=== PATIENT | male | born 1940 | race Caucasian/White ===

== ENCOUNTER → 2016-12-12 | Outpatient (CLI) | payer BC ==
[~2016-12-12] MED LIST: ASPI81TA21 PO; ATOR-22 PO; CARV25TA PO; CELE100C PO; CHOL100010 PO; CLR10 PO; GUAI1TAB69 PO; LSN40 PO; MISCCAP8; MULTCHW PO; NTRGSL/4 UT; SALI1SPR15 NAE; TRAM37.52 PO; [UNRECOGNIZED DRUG - OTHER] OPB
[2016-12-12 10:01] LABS: ALT/SGPT 43 U/L (12-78); BLOOD UREA NITROGEN 18 mg/dl (7-18); BUN/CREATININE RATIO 14.8 (10-20); CALCIUM 8.4 mg/dl (8.5-10.1); CARBON DIOXIDE 28 mmol/L (21-32); CHLORIDE 107 mmol/L (98-107); CHOLESTEROL 89 mg/dl (0-200); GLUCOSE 123 mg/dl (70-99); POTASSIUM 4.1 mmol/L (3.5-5.1); SODIUM 142 mmol/L (136-145)
[2016-12-12 10:04] LABS: ALB/GLOB RATIO 1.3 (0.9-2); ALKALINE PHOSPHATASE 80 U/L (45-117); AST/SGOT 28 U/L (15-37); CHOLESTEROL/HDL RATIO 2.3; HDL CHOLESTEROL 38 mg/dl; LDL CHOLESTEROL CALCULATED 35 mg/dl; TRIGLYCERIDES 82 mg/dl (0-150); VERY LOW DENSITY LIPOPROT CALC 16 mg/dl
[2016-12-12 10:08] LABS: ESTIMATED AVERAGE GLUCOSE 126 mg/dl; HA1C FLAG Normal (Normal)
== END | disposition home or self-care (01) ==
LOC: C.LAB1850 07:22
PROVIDERS: ATTEND Internal Medicine
DX: R73.09 Other abnormal glucose (principal); I10 Essential (primary) hypertension

== ENCOUNTER → 2017-02-25 | Outpatient (CLI) | payer BC ==
--- NOTE | 2017-02-25 08:20 | DIAGNOSTIC IMAGING REPORT ---
CT SCAN OF THE PARANASAL SINUSES CLINICAL HISTORY: Chronic sinusitis. COMPARISON STUDY: CT of the brain dated 06/28/2015. TECHNIQUE: High-resolution CT scan of the paranasal sinuses is performed. Images are reviewed in the axial, sagittal, and coronal planes. IV contrast was not administered for this examination. CT DOSE: 273.21 mGycm FINDINGS: Maxillary antra: Clear bilaterally. Anterior ethmoid sinuses: Clear. Posterior ethmoid sinuses: Clear. Sphenoid sinuses: Trace mucosal thickening seen bilaterally. A 9 mm retention cyst is seen on the right. Frontal sinuses: Clear. Ostiomeatal complexes: Patent bilaterally. Frontoethmoidal and sphenoethmoidal recesses: The sphenoethmoidal recesses are patent bilaterally. There is narrowing on the right secondary to mucosal thickening. The frontoethmoidal recesses are clear. Carotid arteries: The carotid arteries are covered and there are bilateral septal attachments. Ethmoid roofs: The ethmoid roofs are symmetric. Nasal turbinates: Normal in appearance. Nasal septum: There is leftward deviation of the bony nasal septum with a rightward projecting spur. Optic nerves: Covered. Orbits: The bony orbits are intact. Orbital contents are normal in appearance. Calvarium: The skeletal structures are osteopenic. The imaged calvarium is normal in appearance Mastoid air cells: Well pneumatized. Brain parenchyma: Partially visualized brain parenchyma is within normal limits noting age-related involutional change. IMPRESSION: Minimal paranasal sinus disease. See above. Electronically signed by: Owen Lockwood M.D. 02/25/2017 8:19 AM Dictated Date/Time: 02/25/2017 8:16 AM
--- NOTE | 2017-02-25 08:31 | DIAGNOSTIC IMAGING REPORT ---
TWO VIEW CHEST CLINICAL HISTORY: Cough. FINDINGS: PA and lateral chest radiographs are compared to study dated 06/28/2015. There is evidence of previous mitral valve surgery. Epicardial pacing leads are suspected. The heart is mildly enlarged and there is atherosclerotic calcification of the thoracic aorta. The pulmonary vasculature is noncongested. Chronic interstitial thickening is similar to previous. There is patchy airspace consolidation at the right lung base. The right upper lung and the left lung appear clear. No pleural effusion or pneumothorax is seen. The skeletal structures are osteopenic. Degenerative change is noted throughout the thoracic spine. IMPRESSION: 1. There is patchy airspace consolidation at the right lung base typical in appearance for pneumonia. Radiographic follow-up to resolution is recommended. 2. Cardiac enlargement. There is no radiographic evidence of congestive failure. Electronically signed by: Owen Lockwood M.D. 02/25/2017 8:30 AM Dictated Date/Time: 02/25/2017 8:27 AM
== END | disposition home or self-care (01) ==
LOC: C.CTS 07:52
PROVIDERS: ATTEND Otolaryngology
DX: J32.9 Chronic sinusitis, unspecified (principal); R91.8 Other nonspecific abnormal finding of lung field; I51.7 Cardiomegaly

== ENCOUNTER → 2017-03-17 | Outpatient (CLI) | payer BC ==
[~2017-03-17] MED LIST changes: -CHOL100010 PO; +EpINEphrine INJ 1MG/ML AMP 1 MG/ML AMP ONE; +GELATIN SPONGE 12-7MM ONE; +LIDO 2%/EPINEPHRINE 1:100000 20 ML VIAL INFIL ONE; +LIDOCAINE 4% INH SOLN 4 ML BTL ONE; +MUPIROCIN 2% OINT 22 GM TUBE ONE
--- NOTE | 2017-03-17 14:45 | DIAGNOSTIC IMAGING REPORT ---
CHEST 2 VIEWS ROUTINE CLINICAL HISTORY: COMMUNITY ACQUIRED PNEUMONIA COMPARISON STUDY: 03/06/2017 FINDINGS: The heart remains enlarged. A prosthetic cardiac valve is again evident. There is no failure. There are no pleural effusions. There are persistent but improving right middle lobe airspace opacities. Continued radiographic follow-up is recommended. The left lung is clear. The previously queried right midlung zone opacity is not visualized on today's study.[ IMPRESSION: Persistent but improving right middle lobe airspace opacities. Continued radiographic follow-up is recommended. Electronically signed by: Gerardo Muller M.D. 03/17/2017 2:44 PM Dictated Date/Time: 03/17/2017 2:42 PM
== END | disposition home or self-care (01) ==
LOC: C.RAD1850 14:25
PROVIDERS: ATTEND Internal Medicine
DX: J18.9 Pneumonia, unspecified organism (principal); R91.8 Other nonspecific abnormal finding of lung field

== ENCOUNTER → 2017-03-20 | Day surgery (SDC) | payer BC ==
[2017-03-06 10:48] VITALS: BMI 28.0
--- NOTE | 2017-03-06 11:25 | PAT Medication Instructions ---
Service Date Mar 06, 2017. Current Home Medication List Aspirin Enteric Coated (Ecotrin Or Generic), 81 MG PO QPM Atorvastatin (Lipitor), 20 MG PO HS Carvedilol (Coreg), 1 TAB PO BID Celecoxib (Celebrex), 200 MG PO QAM Lisinopril (Lisinopril), 40 MG PO QAM Loratadine (Claritin), 10 MG PO QPM Multiple Vitamins W/ Minerals (Centrum Silver), 1 TAB PO QAM Nitroglycerin (Nitrostat), 0.4 MG UT PRN Saline (Saline Nasal [place] Infant), 1 SPRY REJI HS [Refresh Eyes], 1 DROP OPB BID Medication Instructions For Your Scheduled Surgery - Continue as directed: Nitroglycerin (Nitrostat), 0.4 MG UT PRN - Hold the following medications the morning of surgery: Lisinopril (Lisinopril), 40 MG PO QAM Loratadine (Claritin), 10 MG PO QPM Multiple Vitamins W/ Minerals (Centrum Silver), 1 TAB PO QAM Celecoxib (Celebrex), 200 MG PO QAM (otherwise okay to continue per surgeon) - Take the following medications the morning of surgery with a sip of water OTHERWISE NOTHING TO EAT OR DRINK AFTER MIDNIGHT: [Refresh Eyes], 1 DROP OPB BID Carvedilol (Coreg), 1 TAB PO BID - Take the following medications as scheduled the night before surgery: [Refresh Eyes], 1 DROP OPB BID Atorvastatin (Lipitor), 20 MG PO HS Saline (Saline Nasal [place] ), 1 SPRY REJI HS Carvedilol (Coreg), 1 TAB PO BID Aspirin Enteric Coated (Ecotrin Or Generic), 81 MG PO QPM (otherwise okay to continue per surgeon) If you have any questions please call us at [phone] or [phone] or [phone]
--- NOTE | 2017-03-06 11:57 | DIAGNOSTIC IMAGING REPORT ---
CHEST PREADMISSION(PA/LAT) CLINICAL HISTORY: Cough. Shortness of breath. History of pneumonia. COMPARISON STUDY: Chest radiograph February 25, 2017. FINDINGS: A prosthetic cardiac valve is noted. Mild cardiomegaly is noted. There is no evidence of pulmonary edema. No pneumothorax or pleural effusion is identified. Right middle lobe airspace opacity persists. This has slightly improved since exam of February 25, 2017. There is also mild right midlung opacity which measures approximately 2.2 cm. Left lung is clear. IMPRESSION: 1. Persistent, but slightly improved, right middle lobe opacity which favors pneumonia. Post treatment radiographs to ensure resolution are recommended. 2. Minimal right midlung opacity which may also reflect an infectious process but should be followed to resolution. 3. Mild cardiomegaly without evidence of pulmonary edema. Electronically signed by: Jass Hernandez M.D. 03/06/2017 11:56 AM Dictated Date/Time: 03/06/2017 11:53 AM
[2017-03-06 12:21] LABS: BASO % 0.4 %; BASO ABS # 0.02 K/uL (0-0.2); COMPLETE YES; EOS % 2.9 %; HEMATOCRIT 43.7 % (42-52); LYMPH % 22.6 %; LYMPH ABS # 1.16 K/uL (1.2-3.4); MEAN CELL VOLUME 95.6 fL (80-100); MEAN CORPUSCULAR HGB CONC 34.6 g/dl (32-36); MEAN PLATELET VOLUME 11.8 fL (7.4-10.4); MONO % 12.5 %; NEUT % 61.6 %; PLATELET COUNT 141 K/uL (130-400); RED BLOOD COUNT 4.57 M/uL (4.7-6.1); WHITE BLOOD COUNT 5.13 K/uL (4.8-10.8)
[2017-03-06 13:14] LABS: BUN/CREATININE RATIO 17.6 (10-20); CALCIUM 8.7 mg/dl (8.5-10.1); CREATININE 1.1 mg/dl (0.60-1.40); POTASSIUM 4.1 mmol/L (3.5-5.1)
--- NOTE | 2017-03-19 16:01 | History and Physical ---
History & Physical Date Mar 19, 2017. Chief Complaint sinus infections History of Present Illness The patient is a 76 year old male with complaints of chronic sinusitis Past Medical/Surgical History Medical Problems: (1) Hypertension Surgical Problems: (1) H/O mitral valve repair Additional History Hepatic Disease: No Endocrine Disorder: No Kidney Disease: No Hypertension: Yes Heart Disease: Yes Bleeding Tendencies: No Infectious Diseases: Yes Allergies Coded Allergies: Morphine (Verified Allergy, Unknown, ITCHING, 03/06/17) Home Medications Scheduled Aspirin Enteric Coated (Ecotrin Or Generic), 81 MG PO QPM Atorvastatin (Lipitor), 20 MG PO HS Carvedilol (Coreg), 1 TAB PO BID Celecoxib (Celebrex), 200 MG PO QAM Lisinopril (Lisinopril), 40 MG PO QAM Loratadine (Claritin), 10 MG PO QPM Multiple Vitamins W/ Minerals (Centrum Silver), 1 TAB PO QAM Nitroglycerin (Nitrostat), 0.4 MG UT PRN Saline (Saline Nasal [place] Infant), 1 SPRY REJI HS [Refresh Eyes], 1 DROP OPB BID Physical Examination Skin: warm/dry, no rash Eyes: normal inspection, EOMI, sclerae normal ENT: normal ENT inspection, pharynx normal Head: normocephalic, atraumatic Neck: supple, no adenopathy, trachea midline Respiratory/Chest: lungs clear, normal breath sounds, no respiratory distress Cardiovascular: regular rate, rhythm, no edema, no murmur Abdomen / GI: normal bowel sounds, non tender Back: normal inspection Extremities: normal inspection, normal range of motion Neurologic/Psych: no motor/sensory deficits, alert, normal reflexes, oriented x 3 Diagnosis septal deviation, chronic sinusitis Plan of Treatment septoplasty, endoscopic sinus surgery, explained risks, treated for pneumonia, feels better, no cough
[~2017-03-20] VITALS: Ht 177.8 cm; Wt 88.0 kg
[~2017-03-20] MED LIST changes: +ATROPINE SULFATE 0.1 MG/ML 5ML SYR IV PRN; +DEXAMETHASONE SOD INJ 4 MG/ML VIAL ONE; +EpHEDrine SULFATE INJ 50 MG/ML AMP IV PRN; +EpHEDrine SULFATE INJ 50 MG/ML AMP ONE; +FENTANYL CITRATE INJ 50 MCG/1 ML 2 ML VIAL IV PRN; +FENTANYL CITRATE INJ 50 MCG/1 ML 2 ML VIAL ONE; +HYDROCODONE/ACETAMOPHEN 5/325MG TAB PO PRN; +HYDROmorphone INJ 1 MG/ML SYR IV PRN; +LACTATED RINGER'S 1000ML 1,000 ML IV SCH; +LIDOCAINE HCL 2% 2 ML VIAL (20MG/ML) ONE; -MISCCAP8; +ONDANSETRON INJ 2 MG/ML 2 ML VIAL IV PRN; +PHENYLEPHRINE 100MCG/ML 5ML SYR ONE; +PROPOFOL IV EMULSION 10 MG/ML 20 ML VIAL IV ONE; +SODIUM CHLORIDE 0.9% 1000ML 1,000 ML IV SCH; +SUCCINYLCHOLINE CHLORIDE 20 MG/ML 10 ML VIAL IV ONE; +VASOPRESSIN 20 UNIT/ML VIAL ONE
[2017-03-20 05:53] VITALS: BP 172/73; PULSE 52; TEMP 37; O2SAT 93; Ht 177.8 cm; Wt 88.0 kg
--- NOTE | 2017-03-20 07:03 | History & Physical Bridge Note ---
H&P Re-Evaluation Bridge Note: I have examined the patient, reviewed the History & Physical and in the interval since the performance of the History & Physical I have noted the following changes of clinical significance: No changes noted
--- NOTE | 2017-03-20 09:21 | Discharge Instructions ---
Discharge Instructions Date of Service Mar 20, 2017. Admission Reason for Admission: Chronic Sinusitis Discharge Discharge Diagnosis / Problem: same Discharge Goals Goal(s): Improve disease control Activity Recommendations Activity Limitations: per Instructions/Follow-up section . Instructions / Follow-Up Instructions / Follow-Up ACTIVITY RECOMMENDATIONS: * Being up and around is good, but no strenuous activity, heavy lifting or physical exertion for one week. * Keep your head elevated 30 degrees when lying down or sleeping. * Do not blow your nose for 48 hours, sniff back instead. * Avoid hot showers. OVER THE COUNTER MEDICATIONS: * You may use Tylenol * Avoid aspirin or aspirin containing products, e.g. as they may increase bleeding. SPECIAL CARE INSTRUCTIONS: * Expect to have bloody drainage from your nose and/or down your throat for one to three days. Change drip pad as needed. * Begin irrigating your nose with saline solution today, at least six to ten times per day and sniff back to help remove old clots or crust. * You may experience nasal and facial congestion, pain and pressure, this is normal. * Please call with any significant and/or progressive pain, redness, swelling around the eyes, visual changes, fever of 101.5 degrees F, active bleeding or any problems or concerns. * If active bleeding occurs, spray the nose three times at one minute intervals with Afrin spray and call or cell phone: . If unable to reach the doctor, go to the nearest Emergency Department. Special Diet: * Avoid extremely hot fluids. FOLLOW UP VISIT: Follow-up Visit with Dr. Potter If not already scheduled, please call to schedule. Current Hospital Diet Patient's current hospital diet: Discharge Diet Recommended Diet: Regular Diet Procedures Procedures Performed: Septoplasty and Endoscopic Sinus Surgery of Bilateral Ethmoidectomy Right and Left Frontal, Total Maxillary and Sphenoid Sinusotomies with Computer Guidance Pending Studies Studies pending at discharge: no Medical Emergencies . Who to Call and When: Medical Emergencies: If at any time you feel your situation is an emergency, please call 911 immediately. . Non-Emergent Contact Non-Emergency issues call your: Primary Care Provider . "Provider Documentation" section prepared by Shari Potter. . VTE Core Measure Inpt VTE Proph given/why not?: SCD's [place] Drug Monitoring Program Search Results: no issues identified
--- NOTE | 2017-03-20 09:47 | [facility] Operative Report ---
Operative Report Operative Date Mar 20, 2017. Pre-Operative Diagnosis Septal Deviation and Chronic sinusitis Post-Operative Diagnosis Septal Deviation and Chronic sinusitis Procedure(s) Performed Septoplasty and Endoscopic Sinus Surgery of Bilateral Ethmoidectomy Right and Left Frontal, Total Maxillary and Sphenoid Sinusotomies with Computer Guidance Surgeon Dr Shari Potter Rubber Cutter And Shape Carver Surgeon(s) None Estimated Blood Loss 40mL Findings Septal deviation to the right and thickened mucosa Specimens A. Septal Bone and Cartilage Anesthesia Gen. endotracheal Complication(s) None Disposition Recovery Room / PACU Indications 76-year-old gentleman with persistent sinusitis all winter ending in the pneumonia requiring multiple antibiotics. He has septal deviation to the right and significant sinus disease on CT scan Description of Procedure This 76-year-old gentleman was brought to the operating room and placed in the supine position. General anesthesia was induced, and initially with LMA, and then converted to general endotracheal due to a leak. The LCO Creation device and was calibrated and used for the entire procedure. He was prepped with Betadine paint and draped in the usual sterile manner. The nose was decongested using cottonoids with the topical solution of 4 mL of 4% Xylocaine mixed with 1 mL of epinephrine. Injection of 2% Xylocaine with 1 100,000 strength epinephrine was also used. The right sphenoid was cannulated with the guidewire with [employer] computer guidance and dilated using the 6 mm balloon as was the left sphenoid sinus. The right maxillary sinus was cannulated with the guidewire and dilated using the 6 mm balloon as was the left maxillary sinus. The left nasal frontal duct was cannulated with the guidewire, however the guidewire would not go in initially therefore the frontal sinusotomy was performed using the shaver couple with the Brain[employer] device removing the anterior wall than the posterior wall of the Agger nasi cell and the supra- ethmoid air cells following the previously painted area to the nasal frontal duct opening up the nasal frontal duct cannulating this with the guidewire and then dilating the nasal frontal duct with the 6 mm balloon. The bony fragments around the nasal frontal duct were cleaned, however the mucosa inside the nasal frontal duct was maintained. At this point total ethmoidectomy was performed using the shaver couple with Brain[employer] device opening up the bullae ethmoidalis going through the ground lamella into the posterior ethmoid air cells identifying the skull base superiorly and lamina papyracea laterally following the structures anteriorly exonerating all the posterior and then all the anterior ethmoid air cells up to the previously dilated nasal frontal duct. Maxillary sinus was opened by removing polypoid mucosa at the posterior border which is the anterior wall of the bullae ethmoidalis. The sphenoid was opened by removing polypoid mucosa at the inferior border of the superior turbinate. The right frontal sinusotomy total ethmoidectomy sphenoidotomy and maxillary sinus antrostomy was performed in a similar manner. The right nasal frontal duct cannulated easily and was dilated with the 6 mm balloon. The maxillary and sphenoid sinuses were opened in a similar manner. Endoscopic septoplasty was performed removing a large bony cartilaginous spur projecting to the right inferiorly. The incision was a right [place] incision superior and inferior tunnels were elevated. Bilateral posterior tunnels were elevated. The bony and cartilaginous spur was removed using the Ted dissector Francis forceps and Blakesley forceps. This returned the septum to the midline. The propel stents were placed in the middle meatus area. A single piece of Gelfoam was placed on the right side of the septum. The patient tolerated procedure well was taken to recovery area in satisfactory condition. I attest to the content of the Intraoperative Record and any orders documented therein. Any exceptions are noted below.
--- NOTE | 2017-03-20 10:05 | Anesthesiology Progress Note ---
Anesthesia Post Op Note Date & Time Mar 20, 2017 at 10:03 Vital Signs Pain Intensity: 0 Vital Signs Past 12 Hours Date Time Temp Pulse Resp B/P (MAP) Pulse Ox O2 Delivery O2 Flow Rate FiO2 03/20/17 09:55 59 16 162/85 93 Nasal Cannula 2 03/20/17 09:45 62 16 156/83 99 Oxymask 10 03/20/17 09:35 58 16 161/85 99 Oxymask 10 03/20/17 09:28 36 58 16 167/82 99 Oxymask 10 03/20/17 05:53 37 52 20 172/73 (106) 93 Room Air Notes Mental Status: alert / awake / arousable, participated in evaluation Pt Amnestic to Procedure: Yes Nausea / Vomiting: adequately controlled Pain: adequately controlled Airway Patency, RR, SpO2: stable & adequate BP & HR: stable & adequate Hydration State: stable & adequate Anesthetic Complications: no major complications apparent Pt still requiring O2 to maintain his O2 sat >91%. Will monitor his saturation to get to baseline before discharge.
[2017-03-20 10:25] VITALS: BP 172/83; PULSE 60; TEMP 35.7; O2SAT 92
[2017-03-20 10:55] VITALS: BP 156/85; PULSE 61; TEMP 35.8; O2SAT 93
[2017-03-20 11:23] VITALS: BP 173/82; PULSE 67; TEMP 36; O2SAT 91
[2017-03-20 11:55] VITALS: BP 175/87; PULSE 63; TEMP 36; O2SAT 92
== END | disposition home or self-care (01) ==
LOC: C.ACU 05:10
PROVIDERS: ATTEND Otolaryngology
DX: J34.2 Deviated nasal septum (principal); J32.9 Chronic sinusitis, unspecified; I10 Essential (primary) hypertension; Z79.899 Other long term (current) drug therapy; Z79.82 Long term (current) use of aspirin

== ENCOUNTER → 2017-04-08 | Outpatient (CLI) | payer BC ==
[~2017-04-08] MED LIST changes: -ATROPINE SULFATE 0.1 MG/ML 5ML SYR IV PRN; -DEXAMETHASONE SOD INJ 4 MG/ML VIAL ONE; -EpHEDrine SULFATE INJ 50 MG/ML AMP IV PRN; -EpHEDrine SULFATE INJ 50 MG/ML AMP ONE; -EpINEphrine INJ 1MG/ML AMP 1 MG/ML AMP ONE; -FENTANYL CITRATE INJ 50 MCG/1 ML 2 ML VIAL IV PRN; -FENTANYL CITRATE INJ 50 MCG/1 ML 2 ML VIAL ONE; -GELATIN SPONGE 12-7MM ONE; -HYDROCODONE/ACETAMOPHEN 5/325MG TAB PO PRN; -HYDROmorphone INJ 1 MG/ML SYR IV PRN; -LACTATED RINGER'S 1000ML 1,000 ML IV SCH; -LIDO 2%/EPINEPHRINE 1:100000 20 ML VIAL INFIL ONE; -LIDOCAINE 4% INH SOLN 4 ML BTL ONE; -LIDOCAINE HCL 2% 2 ML VIAL (20MG/ML) ONE; +MISCCAP8; -MUPIROCIN 2% OINT 22 GM TUBE ONE; -ONDANSETRON INJ 2 MG/ML 2 ML VIAL IV PRN; -PHENYLEPHRINE 100MCG/ML 5ML SYR ONE; -PROPOFOL IV EMULSION 10 MG/ML 20 ML VIAL IV ONE; -SODIUM CHLORIDE 0.9% 1000ML 1,000 ML IV SCH; -SUCCINYLCHOLINE CHLORIDE 20 MG/ML 10 ML VIAL IV ONE; -VASOPRESSIN 20 UNIT/ML VIAL ONE
--- NOTE | 2017-04-08 08:54 | DIAGNOSTIC IMAGING REPORT ---
CHEST 2 VIEWS ROUTINE CLINICAL HISTORY: J18.9 Community acquired [id number] COMPARISON STUDY: 03/17/2017 FINDINGS: The cardiac and mediastinal contours remain stable. A prosthetic cardiac valve is again evident. There is no failure. There are persistent airspace opacities at the right lung base. These are difficult to visualize in the lateral view, but are likely within the middle lobe. There is no significant pleural fluid. Degenerative changes are present within the dorsal spine. IMPRESSION: No change from the prior study. Persistent minimal right basilar airspace opacities Electronically signed by: Gerardo Muller M.D. 04/08/2017 8:53 AM Dictated Date/Time: 04/08/2017 8:52 AM
== END | disposition home or self-care (01) ==
LOC: C.LAB1850 08:41
PROVIDERS: ATTEND Internal Medicine
DX: J18.9 Pneumonia, unspecified organism (principal)

== ENCOUNTER → 2017-04-23 | Outpatient (CLI) | payer BC ==
--- NOTE | 2017-04-23 10:39 | DIAGNOSTIC IMAGING REPORT ---
(CHEST) THORAX WITHOUT CT DOSE: 384.00 mGy.cm HISTORY: Abnormal chest x-ray. J18.9 Community acquired [id number] Opacity of lung on imagi TECHNIQUE: Multiaxial CT images of the chest were performed without contrast. A dose lowering technique was utilized adhering to the principles of ALARA. COMPARISON: Chest 04/08/2017. FINDINGS: The central airways are patent. Trace right pleural effusion. No pneumothorax. Small biapical pleural-parenchymal scarlike densities. There are few punctate pleural calcification within the left lung apex. Scattered patchy groundglass densities within the base of the right middle lobe and right lower lobe with mild interlobular septal thickening. There is also mild left upper lobe groundglass airspace opacities anteriorly. A few scattered calcified granulomas within the lungs. No fractures within the visualized osseous structures. A punctate stone within the right kidney. The spleen and adrenal glands are unremarkable. The visualized liver appears within normal limits. A few calcified mediastinal lymph nodes. Prominent right hilar lymph node measuring 1 cm short axis diameter. A mitral valve ring is noted. Normal caliber thoracic aorta. A single enlarged left peritracheal lymph node measuring 2.3 x 1.5 cm. IMPRESSION: 1. Patchy groundglass airspace opacity seen within the base of the right middle lobe and right lower lobe with interlobular septal thickening. There is also faint groundglass airspace opacities within the left upper lobe anteriorly. This likely represents a atypical pneumonia. Pulmonary edema could also a similar appearance but is considered less likely. 2. Trace right pleural effusion. 3. Mild cardiomegaly. 4. A single enlarged left paratracheal lymph node and a single prominent right hilar lymph node. These could be reactive. 3-[address] follow-up can be performed to ensure stability/resolution. 5. Right-sided nephrolithiasis. Electronically signed by: Travis Hart M.D. 04/23/2017 10:37 AM Dictated Date/Time: 04/23/2017 10:29 AM
== END | disposition home or self-care (01) ==
LOC: C.CTS 10:17
PROVIDERS: ATTEND Internal Medicine
DX: J18.9 Pneumonia, unspecified organism (principal); R91.8 Other nonspecific abnormal finding of lung field; B99.9 Unspecified infectious disease; R59.0 Localized enlarged lymph nodes; N20.0 Calculus of kidney

== ENCOUNTER → 2017-04-30 | Outpatient (CLI) | payer BC ==
[2017-04-30 16:56] LABS: BASO % 0.3 %; BASO ABS # 0.02 K/uL (0-0.2); COMPLETE YES; EOS % 2.1 %; HEMATOCRIT 43.1 % (42-52); IG% 0.2 %; LYMPH % 20.6 %; LYMPH ABS # 1.29 K/uL (1.2-3.4); MEAN CELL VOLUME 95.8 fL (80-100); MEAN CORPUSCULAR HEMOGLOBIN 32.7 pg (25-34); MEAN CORPUSCULAR HGB CONC 34.1 g/dl (32-36); MEAN PLATELET VOLUME 11.5 fL (7.4-10.4); MONO % 11.5 %; NEUT % 65.3 %; PLATELET COUNT 164 K/uL (130-400); WHITE BLOOD COUNT 6.27 K/uL (4.8-10.8)
[2017-04-30 17:02] LABS: PROTHROMBIN TIME (PATIENT) 11.2 SECONDS (9.0-12.0)
[2017-04-30 17:18] LABS: ALT/SGPT 74 U/L (12-78); AST/SGOT 39 U/L (15-37); BLOOD UREA NITROGEN 20 mg/dl (7-18); BUN/CREATININE RATIO 18.2 (10-20); CALCIUM 8.6 mg/dl (8.5-10.1); CARBON DIOXIDE 27 mmol/L (21-32); CHLORIDE 112 mmol/L (98-107); GLUCOSE 92 mg/dl (70-99); POTASSIUM 4.1 mmol/L (3.5-5.1); SODIUM 144 mmol/L (136-145)
[2017-04-30 17:28] LABS: ALKALINE PHOSPHATASE 92 U/L (45-117)
[2017-05-01 06:48] LABS: ESTIMATED AVERAGE GLUCOSE 131 mg/dl; HA1C FLAG Normal (Normal)
--- NOTE | 2017-05-06 12:28 | CODING QUERY MEDICAL NECESSITY ---
SUPPORTING DIAGNOSIS NEEDED A supporting diagnosis is required for the test/procedure performed on this patient in order for us to be reimbursed by the patient's insurance. Please provide a supporting diagnosis for the following test/procedure listed below next to the test name along with your signature. *If there is no additional diagnosis for this patient that would support the following test/procedure please document that below next to the test/procedure. Test(s)/Procedure(s) that require a supporting diagnosis: * VITAMIN B12 DIAGNOSIS: Provider Signature: Date: Thank you Aziza Rudyard [employer] Once completed, please kindly fax back to [phone] For questions please call [phone]
[2017-05-07 12:34] LABS: MYELOPEROXIDASE AB <1.0 AI (<1.0)
== END | disposition home or self-care (01) ==
LOC: C.LAB1850 15:53
PROVIDERS: ATTEND Internal Medicine Pulmonary Disease
DX: R41.89 Other symptoms and signs involving cognitive functions and awareness (principal); I48.91 Unspecified atrial fibrillation; R73.09 Other abnormal glucose; J18.9 Pneumonia, unspecified organism; R91.8 Other nonspecific abnormal finding of lung field; B99.9 Unspecified infectious disease; R05 Cough; I10 Essential (primary) hypertension; R00.1 Bradycardia, unspecified

== ENCOUNTER → 2017-05-08 | Day surgery (SDC) | payer BC ==
[2017-05-08] VITALS (14 sets, daily range): BP systolic 127–190; BP diastolic 50–118; PULSE 46–60; TEMP 36.5–36.6; O2SAT 5–100; Ht 177.8 cm; Wt 87.5 kg
[~2017-05-08] VITALS: Ht 177.8 cm; Wt 87.5 kg
[~2017-05-08] MED LIST changes: +FENTANYL CITRATE 100 MCG 2 ML CARP IV ONE; +FENTANYL CITRATE INJ 50 MCG/1 ML 2 ML VIAL IV ONE; +IPRATROPIUM BROMIDE NEB SOLN 0.02% 2.5 ML VIAL INH ONE; +LEVALBUTEROL 1.25MG/3ML NEB INH ONE; +MIDAZOLAM HCL 5 MG/ML 1 ML VIAL IV ONE; +NURSING VERBAL MED ORDER ONE
--- NOTE | 2017-05-08 07:41 | Procedure Note ---
Pre-Mod Sedation Assessment General Date of Moderate Sedation: May 08, 2017. Pre-Sedation Airway Assessment Smoking Status: Former Smoker Mallampati Classification: Class II ASA Classification: Class II Procedure Planning Contraindications-for Mod Sed: None Yes Notes The planned sedation has been discussed with the patient and consent obtained. I have identified the patient, determined the appropriateness of sedation and have assessed the patient immediately prior to the procedure. All medicine(s) and interventions are by my order.
--- NOTE | 2017-05-08 11:02 | Discharge Instructions ---
Discharge Instructions Date of Service May 08, 2017. Admission Reason for Admission: Persistent Cough Discharge Discharge Diagnosis / Problem: Hemoptysis/pneumonitis Discharge Goals Goal(s): Diagnostic testing, Therapeutic intervention Activity Recommendations Activity Limitations: resume your previous activity Lifting Limitations: none Exercise/Sports Limitations: none May Resume Sexual Activity: when tolerated Shower/Bathe: no limitations Driving or Machine Use: resume 1 day after discharge None . Instructions / Follow-Up Instructions / Follow-Up Reported Home Medications Medications Dose Route/Sig Max Daily Dose Days Date Category [facility]) 1 Cap Cap 05/08/17 Reported Saline Nasal [place] Infant (Saline) 0.65 % Spr 1 [place] REJI HS 7 03/06/17 Reported Nitrostat (Nitroglycerin) 0.4 Mg Tab 0.4 Mg UT PRN 03/06/17 Reported Coreg (Carvedilol) 25 Mg Tab 1 Tab PO BID 30 06/28/15 Reported Lipitor (Atorvastatin Calcium) 20 Mg Tab 20 Mg PO HS 01/13/14 Reported Centrum Silver (Multiple Vitamins W/ Minerals) 1 Chw Chw 1 Tab PO QAM 01/12/14 Reported Lisinopril 40 Mg Tab 40 Mg PO QAM 01/12/14 Reported [Refresh Eyes] 1 Drop OPB BID 08/03/12 Reported Ecotrin Or Generic (Aspirin) 81 Mg Tab 81 Mg PO QPM 03/05/12 Reported Celebrex (Celecoxib) 100 Mg Cap 200 Mg PO QAM 03/05/12 Reported Current Hospital Diet Patient's current hospital diet: regular Discharge Diet Recommended Diet: Regular Diet Pending Studies Studies pending at discharge: no Laboratory Results Hemoglobin A1c Test 04/30/17 16:02 Range/Units Estimated Average Glucose 131 mg/dl Hemoglobin A1c 6.2 H 4.5-5.6 % Medical Emergencies . Who to Call and When: Medical Emergencies: If at any time you feel your situation is an emergency, please call 911 immediately. . Non-Emergent Contact Non-Emergency issues call your: [employer] Recruiter Call Non-Emergent contact if: temperature is above 101 . . "Provider Documentation" section prepared by Juancarlos Merchant. . VTE Core Measure Inpt VTE Proph given/why not?: Treatment not indicated [place] Drug Monitoring Program Search Results: no issues identified
--- NOTE | 2017-05-08 14:08 | OPERATIVE REPORT ---
DATE OF OPERATION: 05/08/2017 TIME: 10:00 PROCEDURE: Fiberoptic bronchoscopy with bronchoalveolar lavage with and without transbronchial biopsy. SURGEON: Dr. Merchant. INDICATIONS: Persistent hemoptysis/right lower lobe ground-glass opacities. ANESTHESIA PREOPERATIVELY: None. ANESTHESIA DURING PROCEDURE: 25 mcg IV fentanyl, 3 mg IV Versed, 20 mL 2% Xylocaine spray above and below the cords, 4% viscous Xylocaine intranasally. PROCEDURE: Fiberoptic bronchoscope was inserted into the right naris with minimal difficulty and passed to the level of the true vocal cords. Cords appeared to approximate normally with phonation without evidence of lesions or paralysis. The area was anesthetized and the scope was then introduced into the trachea and right and left tracheobronchial tree. No obvious blood was visible on initial inspection. The nathan appeared to be within normal limits. The right main stem bronchus was explored initially and no endobronchial lesions were seen. The right upper lobe, the apical posterior and anterior as well as axillary segments were found to be free of endobronchial lesions with a small amount of oozing of blood from the anterior and posterior segments. This area was copiously lavaged with normosol and the aspirate sent for appropriate studies. Brushings were also taken from those 2 segments x2 for cytologic preparation. No additional bleeding was encountered. Biopsies were not attempted. The bronchus intermedius, right middle lobe and the medial and lateral segments and all basilar segments right lower lobe were free of endobronchial lesions, but the same degree of oozing from the basilar segments right lower lobe were noted suggesting friability. This area was copiously lavaged with normosol and the aspirate sent for appropriate studies. Left tracheobronchial tree was explored and no endobronchial lesions were seen. Left upper lobe, lingular subdivision and left lower lobe were free of endobronchial lesions down to subsegmental bronchi. No active bleeding was encountered. No brushings or biopsies were taken from that region except the left lower lobe was lavaged with normosol and the aspirate also sent for appropriate studies. The scope was then removed to the level of the right upper lobe, right lower lobe and no additional oozing or bleeding was noted. No biopsies were undertaken at this point in time. A CAT scan was reviewed which showed ground-glass opacities involving the right lower lobe from mid April. The patient tolerated the procedure well and was given a nebulizer treatment with Xopenex 1.25 mg then transferred to the medical treatment unit hemodynamically stable with no signs of respiratory compromise. Will await microbiological and cytologic examination of the bronchial washings and brushings. I attest to the content of the Intraoperative Record and any orders documented therein. Any exception s are noted below.
[2017-06-04 19:19] LABS: HERPES SIMPLEX CULT SOURCE RESPIRATORY-R&L BAL; HERPES SIMPLEX VIRUS CULT NOT ISOLATED (NOT ISOLATED)
== END | disposition home or self-care (01) ==
LOC: C.ACU 08:25
PROVIDERS: ATTEND Internal Medicine Pulmonary Disease
DX: R04.2 Hemoptysis (principal); J18.9 Pneumonia, unspecified organism; I10 Essential (primary) hypertension; I48.91 Unspecified atrial fibrillation; M15.9 Polyosteoarthritis, unspecified; I34.0 Nonrheumatic mitral (valve) insufficiency; R73.03 Prediabetes; Z87.891 Personal history of nicotine dependence; Z79.82 Long term (current) use of aspirin; Z82.49 Family history of ischemic heart disease and other diseases of the circulatory system

== ENCOUNTER → 2017-05-13 | Outpatient (CLI) | payer BC ==
[~2017-05-13] MED LIST changes: -CLR10 PO; -FENTANYL CITRATE 100 MCG 2 ML CARP IV ONE; -FENTANYL CITRATE INJ 50 MCG/1 ML 2 ML VIAL IV ONE; -GUAI1TAB69 PO; -IPRATROPIUM BROMIDE NEB SOLN 0.02% 2.5 ML VIAL INH ONE; -LEVALBUTEROL 1.25MG/3ML NEB INH ONE; -MIDAZOLAM HCL 5 MG/ML 1 ML VIAL IV ONE; -NURSING VERBAL MED ORDER ONE; -TRAM37.52 PO
--- NOTE | 2017-05-13 13:49 | DIAGNOSTIC IMAGING REPORT ---
PET/CT SKULL-THIGH CLINICAL HISTORY: 77 years-old Male with SINGLE PULMONARY NODULE. Follow-up study. COMPARISON: CT chest 04/23/2017 TECHNIQUE: The patient was injected with 13.45 mCi of F-18 fluorodeoxyglucose (FDG) and an emission scan was performed from the skull vertex to the toes. Noncontrast CT was performed for attenuation correction and anatomic localization. The blood glucose level was 141 mg/dl. FINDINGS: HEAD AND NECK: There is a physiologic distribution of activity, with no hypermetabolic foci. CHEST: The previously noted enlarged left paratracheal lymph node is again seen, 2.4 x 1.5 cm, previously 2.3 x 1.5 cm with mildly increased FDG activity, SUV max 2.5. There are trace bilateral pleural effusions with slightly increased FDG activity, SUV max 1.7. There is a subsegmental airspace consolidation with central air bronchograms within the medial right lower lobe extending from the superior segment to the medial basal segment measuring up to 3.4 x 0.9 cm with mild FDG uptake, SUV max 2.5. Mild intralobular septal thickening with patchy groundglass opacities are again seen bilaterally, notably in the lung bases without significant increased metabolic activity. ABDOMEN AND PELVIS: There is a physiologic distribution of activity within the liver, spleen, adrenal glands, gastrointestinal and urinary tracts, with no hypermetabolic foci. Mildly increased FDG activity within the central enlarged prostate is nonspecific. MUSCULOSKELETAL SYSTEM AND EXTREMITIES: There is a physiologic distribution of activity within the bone marrow, with no hypermetabolic foci. ADDITIONAL CT FINDINGS: Mild symmetric bilateral gynecomastia. Calcified granuloma within the superior segment left lower lobe with mild adjacent pleural parenchymal scarring. Heart is moderately enlarged with coronary arterial calcifications. 10 mm hyperattenuating cyst of the midpole left kidney. 4 mm nonobstructing calculus of the superior pole right kidney. Bilateral renal cysts with left renal sinus cysts. Bladder is collapsed. Pelvic structures are not well seen secondary to artifact from right hip arthroplasty. Moderate stool burden. Post surgical changes of the right hemicolon and left inguinal region. 3.2 x 1.7 cm lipoma of the left lower chest wall on image 158. IMPRESSION: 1. Subsegmental airspace consolidation with central air bronchograms within the medial right lower lobe as above has slightly increased in size from comparison and demonstrates slightly increased FDG activity. This finding in combination with small bilateral pleural effusions and bibasilar groundglass opacities suggests infectious or inflammatory etiology. Close follow-up is recommended. 2. Mildly enlarged left paratracheal lymph node is mildly hypermetabolic and unchanged in size from comparison. Reactive etiology is favored. This also warrants attention on follow-up. 3. Prostamegaly with mildly increased FDG activity centrally. Correlate with PSA level. 4. Additional incidental CT findings as above. The above report was generated using voice recognition software. It may contain grammatical, syntax or spelling errors. Electronically signed by: Margarito Brooks M.D. 05/13/2017 1:48 PM Dictated Date/Time: 05/13/2017 1:24 PM
== END | disposition home or self-care (01) ==
LOC: C.PET 09:47
PROVIDERS: ATTEND Internal Medicine Pulmonary Disease
DX: B99.9 Unspecified infectious disease (principal); R91.1 Solitary pulmonary nodule

== ENCOUNTER → 2017-06-17 | Outpatient (CLI) | payer BC ==
--- NOTE | 2017-06-17 11:14 | DIAGNOSTIC IMAGING REPORT ---
TWO VIEW CHEST CLINICAL HISTORY: Cough. Pulmonary nodule. FINDINGS: PA and lateral chest radiographs are compared to study dated 04/08/2017 and correlated with chest CT dated 04/23/2017. The cardiomediastinal silhouette is unremarkable heart is enlarged and there is atherosclerotic calcification of the thoracic aorta. There is evidence of previous mitral valve surgery. Epicardial pacing leads are observed. The pulmonary vasculature is noncongested. Chronic interstitial thickening is similar to previous. A large calcified granuloma is again seen in the left lower lobe. No airspace consolidation is identified typical for pneumonia and there is no pleural effusion. There is no pneumothorax. The skeletal structures are osteopenic. Degenerative change is seen throughout the thoracic spine. IMPRESSION: Cardiomegaly with no active disease in the chest. Electronically signed by: Owen Lockwood M.D. 06/17/2017 11:12 AM Dictated Date/Time: 06/17/2017 11:11 AM
== END | disposition home or self-care (01) ==
LOC: C.RAD1850 10:51
PROVIDERS: ATTEND Internal Medicine Pulmonary Disease
DX: R91.1 Solitary pulmonary nodule (principal); I51.7 Cardiomegaly

== ENCOUNTER → 2017-06-22 | Outpatient (CLI) | payer BC ==
[2017-06-22 15:12] LABS: ESTIMATED AVERAGE GLUCOSE 189 mg/dl; HA1C FLAG Normal (Normal)
[2017-06-22 15:46] LABS: BLOOD UREA NITROGEN 19 mg/dl (7-18); BUN/CREATININE RATIO 17.8 (10-20); CALCIUM 8.9 mg/dl (8.5-10.1); CARBON DIOXIDE 28 mmol/L (21-32); CHLORIDE 105 mmol/L (98-107); CREATININE 1.07 mg/dl (0.60-1.40); GLUCOSE 212 mg/dl (70-99); POTASSIUM 4.4 mmol/L (3.5-5.1); SODIUM 138 mmol/L (136-145)
[2017-06-22 15:50] LABS: PROSTATE SPECIFIC ANTIGEN 0.693 ng/ml (0.000-4.000)
== END | disposition home or self-care (01) ==
LOC: C.LAB1850 14:07
PROVIDERS: ATTEND Internal Medicine
DX: R73.09 Other abnormal glucose (principal); N40.1 Benign prostatic hyperplasia with lower urinary tract symptoms; R35.1 Nocturia

== ENCOUNTER → 2017-12-09 | Outpatient (CLI) | payer BC ==
[2017-12-09 12:48] LABS: HEMOGLOBIN A1C 6.4 % (4.5-5.6)
[2017-12-09 12:49] LABS: ALBUMIN 3.9 gm/dl (3.4-5.0); ALT/SGPT 45 U/L (12-78); BLOOD UREA NITROGEN 15 mg/dl (7-18); CALCIUM 8.7 mg/dl (8.5-10.1); CARBON DIOXIDE 31 mmol/L (21-32); CHOLESTEROL 93 mg/dl (0-200); CREATININE 1.13 mg/dl (0.60-1.40); GLUCOSE 128 mg/dl (70-99); POTASSIUM 4.1 mmol/L (3.5-5.1); SODIUM 140 mmol/L (136-145)
[2017-12-09 12:52] LABS: ALKALINE PHOSPHATASE 76 U/L (45-117); AST/SGOT 25 U/L (15-37); LDL CHOLESTEROL CALCULATED 29 mg/dl
[2017-12-09 15:04] LABS: CREATININE RANDOM URINE 72.5 mg/dl
== END | disposition home or self-care (01) ==
LOC: C.LAB1850 10:43
PROVIDERS: ATTEND Internal Medicine
DX: R73.09 Other abnormal glucose (principal)

== ENCOUNTER → 2017-12-16 | Outpatient (CLI) | payer BC ==
[~2017-12-16] MED LIST changes: +ASPI-319 PO; -ASPI81TA21 PO
--- NOTE | 2017-12-16 10:00 | DIAGNOSTIC IMAGING REPORT ---
CHEST 2 VIEWS ROUTINE CLINICAL HISTORY: 77 years-old Male presenting with R91.1, R05 cough, pulmonary nodule. TECHNIQUE: PA and lateral views of the chest were obtained. COMPARISON: 06/17/2017. FINDINGS: Prosthetic mitral valve noted. Epicardial pacing wires also noted. Atherosclerosis of aortic arch. Cardiac silhouette mildly enlarged, unchanged. Slight increased density in the right lower paramediastinal lung on frontal view, which is not clearly identifiable on lateral view. This does not significantly obscure the right heart border, suggesting a right lower lobe location. Degenerative changes of the thoracic spine. Upper abdomen normal. IMPRESSION: 1. Possible developing infiltrate in the right lung base. Infection cannot be excluded. Further evaluation with chest CT to be considered as clinically indicated. Electronically signed by: Gilbert Rubi M.D. 12/16/2017 9:59 AM Dictated Date/Time: 12/16/2017 9:56 AM
== END | disposition home or self-care (01) ==
LOC: C.RAD1850 09:48
PROVIDERS: ATTEND Internal Medicine Pulmonary Disease
DX: R05 Cough (principal); R91.1 Solitary pulmonary nodule

== ENCOUNTER → 2018-01-13 | Outpatient (CLI) | payer BC ==
--- NOTE | 2018-01-13 13:13 | DIAGNOSTIC IMAGING REPORT ---
CHEST 2 VIEWS ROUTINE CLINICAL HISTORY: J44.9 COPD. ABNORMAL CHEST X-RAY. COMPARISON STUDY: December 16, 2017 FINDINGS: The cardiac and mediastinal contours remain stable. There is a valvular prosthesis. The heart remains mildly enlarged. There is no focal pulmonary consolidation. There are no pleural effusions.[ IMPRESSION: No active disease in the chest. Electronically signed by: Gerardo Muller M.D. 01/13/2018 1:11 PM Dictated Date/Time: 01/13/2018 1:10 PM
== END | disposition home or self-care (01) ==
LOC: C.RAD1850 12:11
PROVIDERS: ATTEND Internal Medicine Pulmonary Disease
DX: J44.9 Chronic obstructive pulmonary disease, unspecified (principal)

== ENCOUNTER → 2018-03-30 | Outpatient (CLI) | payer BC ==
[~2018-03-30] MED LIST changes: -ATOR-22 PO; -CELE100C PO; +CLB200 PO; +FLUT1INH INH; +HYDR25TA4 PO; +IPRA-64 INH; +LISI40TA3 PO; +LPT40 PO; -LSN40 PO; -MISCCAP8; -NTRGSL/4 UT; +NTRSLP4 SL; +PLV75 PO; +POLYSOL OPB; +SALI-3 NAE; -SALI1SPR15 NAE; +VNTHFA/IN INH; -[UNRECOGNIZED DRUG - OTHER] OPB
[2018-03-30 17:10] LABS: ALBUMIN 3.4 gm/dl (3.4-5.0); ALKALINE PHOSPHATASE 80 U/L (45-117); ALT/SGPT 29 U/L (12-78); AST/SGOT 19 U/L (15-37); BLOOD UREA NITROGEN 19 mg/dl (7-18); CALCIUM 8.8 mg/dl (8.5-10.1); CARBON DIOXIDE 27 mmol/L (21-32); CREATININE 1.13 mg/dl (0.60-1.40); GLUCOSE 125 mg/dl (70-99); POTASSIUM 3.7 mmol/L (3.5-5.1); SODIUM 141 mmol/L (136-145); TOTAL PROTEIN 6.6 gm/dl (6.4-8.2)
== END | disposition home or self-care (01) ==
LOC: C.LAB1850 15:44
PROVIDERS: ATTEND Urology
DX: M54.12 Radiculopathy, cervical region (principal); R30.0 Dysuria; R31.0 Gross hematuria

== ENCOUNTER → 2018-04-05 | Outpatient (CLI) | payer BC ==
[~2018-04-05] MED LIST changes: +LISI20TA3 PO; +OPTIRAY 320 IV PRN
--- NOTE | 2018-04-05 08:42 | DIAGNOSTIC IMAGING REPORT ---
ABD/PELVIS COMBO HISTORY: 77 years-old Male M54.12 Cervical [id number] [id number] Gross hematuria acute hematuria with dysuria COMPARISON: CT abdomen and pelvis 03/03/2018 TECHNIQUE: Multiple axial CT images of the abdomen and pelvis were obtained both with and without the use of 125 mL Optiray 320 IV contrast utilizing hematuria protocol with delayed postcontrast imaging. A dose lowering technique was used consistent with the principals of NICOLAS. FINDINGS: Trace right pleural effusion. Subsegmental groundglass opacities about the medial basal segment right lower lobe suggest atelectasis/scarring. There is no pneumatosis or pneumoperitoneum identified. The imaged inferior cardiac chambers are moderately enlarged. Prosthetic mitral valve noted. Epicardial leads about the right heart border partially imaged. Cholelithiasis without CT evidence of acute cholecystitis. The liver, and adrenal glands are unremarkable. Moderate generalized pancreatic atrophy. Spleen is enlarged, 15.0 cm. Exophytic hypodense lesion about the medial aspect of the superior pole left kidney is unchanged measuring 1.1 x 0.7 cm compatible with a proteinaceous or hemorrhagic cyst. Mild nonspecific bilateral perinephric stranding. 1.4 cm cyst of the posterior aspect superior pole left kidney. 5 mm cyst of the inferior pole left kidney. There is a 4 mm nonobstructing calculus of the interpolar right kidney with ill-defined hyperdensity about the inferior and superior poles right kidney which may reflect additional nonobstructing calculus. Additionally, there is a suggested nonobstructing punctate calculus of the anterior interpolar left kidney. There are no ureteral calculi or obstructive uropathy. Mild nonspecific stranding about the bilateral kidneys. Small renal sinus cysts are noted bilaterally. No focal filling defects identified within the renal collecting systems or ureters. The bladder and pelvic structures are suboptimally visualized secondary to streak artifact from right hip arthroplasty. The bladder is partially decompressed and demonstrates circumferential wall thickening. The prostate appears mildly enlarged with central coarse calcifications. Small left fat filled inguinal hernia. Postoperative changes of the left inguinal tissues. Trace free pelvic fluid. Moderate calcification of the aorta without aneurysm. IVC appears unremarkable. Scattered nonenlarged retroperitoneal and periportal lymph nodes are present, likely physiologic. Patent portal vein. No bowel obstruction. Suggestion of mild circumferential rectal wall thickening with trace perirectal edema. Normal-appearing appendix. Lipoma of the left lateral abdominal wall measures up to 3.6 cm in greatest dimension, image 197 series 5. Right hip total joint arthroplasty. 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 Multilevel degenerative changes of the spine. IMPRESSION: 1. Nonobstructing bilateral nephrolithiasis with 4 mm calculus of the interpolar right kidney. No ureteral calculi or obstructive uropathy. 2. Mild prostamegaly with wall thickening of the bladder suggesting combination of chronic bladder outlet obstruction with partial distention. Correlate with urinalysis to exclude cystitis. 3. Cholelithiasis without CT evidence of acute cholecystitis. 4. Mild circumferential wall thickening of the rectum with mild perirectal edema and trace free pelvic fluid. These findings may reflect proctitis, however correlation with clinical exam and possibly colonoscopy recommended to further evaluate. 5. Additional findings as above. The above report was generated using voice recognition software. It may contain grammatical, syntax or spelling errors. Electronically signed by: Margarito Brooks M.D. 04/05/2018 8:41 AM Dictated Date/Time: 04/05/2018 8:26 AM
== END | disposition home or self-care (01) ==
LOC: C.CTS 07:51
PROVIDERS: ATTEND Urology
DX: R31.0 Gross hematuria (principal); M54.12 Radiculopathy, cervical region; R30.0 Dysuria; N40.1 Benign prostatic hyperplasia with lower urinary tract symptoms; N20.0 Calculus of kidney

== ENCOUNTER → 2018-04-12 | Outpatient (CLI) | payer BC ==
[~2018-04-12] MED LIST changes: +FLM4 PO; +GLC/500 PO; -OPTIRAY 320 IV PRN; +SPRIN INH
[2018-04-12 12:37] LABS: BASO % 0.1 %; BASO ABS # 0.01 K/uL (0-0.2); EOS % 0.1 %; EOS ABS # 0.01 K/uL (0-0.5); HEMATOCRIT 37.1 % (42-52); HEMOGLOBIN 12.7 g/dL (14.0-18.0); IG# 0.01 K/uL (0.00-0.02); LYMPH % 8.6 %; LYMPH ABS # 0.61 K/uL (1.2-3.4); MEAN CELL VOLUME 95.6 fL (80-100); MEAN CORPUSCULAR HEMOGLOBIN 32.7 pg (25-34); MEAN CORPUSCULAR HGB CONC 34.2 g/dl (32-36); MEAN PLATELET VOLUME 11.9 fL (7.4-10.4); MONO % 14.1 %; NEUT ABS # 5.47 K/uL (1.4-6.5); PLATELET COUNT 139 K/uL (130-400); RED CELL DISTRIBUTION WIDTH CV 13.8 % (11.5-14.5); RED CELL DISTRIBUTION WIDTH SD 47.7 fL (36.4-46.3); WHITE BLOOD COUNT 7.11 K/uL (4.8-10.8)
[2018-04-12 12:51] LABS: ALKALINE PHOSPHATASE 61 U/L (45-117); ALT/SGPT 28 U/L (12-78); AST/SGOT 22 U/L (15-37); BLOOD UREA NITROGEN 27 mg/dl (7-18); CALCIUM 8.7 mg/dl (8.5-10.1); CARBON DIOXIDE 26 mmol/L (21-32); CREATININE 1.46 mg/dl (0.60-1.40); GLUCOSE 253 mg/dl (70-99); POTASSIUM 3.7 mmol/L (3.5-5.1); SODIUM 135 mmol/L (136-145)
== END | disposition home or self-care (01) ==
LOC: C.LAB1850 11:36
PROVIDERS: ATTEND Physician Assistant
DX: R50.9 Fever, unspecified (principal); R53.1 Weakness

== ENCOUNTER 2018-04-13 16:50 | Inpatient (IN) | payer BC, OTHER ==
[~2018-04-13] VITALS: Ht 177.8 cm; Wt 86.0 kg
[~2018-04-13 16:50] MED LIST changes: -FLM4 PO; -FLUT1INH INH; -GLC/500 PO; -LISI20TA3 PO; -SPRIN INH
[2018-04-13] MEDS ORDERED: SODIUM CHLORIDE 0.9% 1000ML 1,000 ML IV ONE (17:08)
[2018-04-13] MEDS ORDERED: ACETAMINOPHEN 325 MG TAB PO ONE (17:15)
--- NOTE | 2018-04-13 17:17 | EMERGENCY ROOM VISIT NOTE ---
History Report prepared by Karen: Erica Wheeler Under the Supervision of: Dr. Juancarlos Chiang D.O. First contact with patient: 17:04 Chief Complaint: KIDNEY STONE Stated Complaint: KIDNEY STONE, TEMP 100+, PAIN ON RIGHT SIDE History of Present Illness The patient is a 77 year old male who presents to the Emergency Room with complaints of a kidney stone beginning 1 week tours captain. He reports he knows he has a kidney stone as he was called by Dr. Bray who told the patient he has one. The patient has a had a high fever with a high of 101.2 that began 1 week tours captain along with back pain, shakiness, dizziness, and some difficulty balancing. He also has a cough with clear mucus but denies any urinary symptoms, rashes, vomiting, or diarrhea. He states the last time he urinated was right before he came to the ED. The patient took Tylenol at 0800 this morning. Source of History: patient Onset: 1 week tours captain Position: back Quality: other (kidney stone) Associated Symptoms: + fevers (high of 101.2), + cough (with clear mucus), + back pain, No vomiting, No diarrhea, No urinary symptoms, No rash Note: Positive shakiness, dizziness, and difficultly balancing Review of Systems See HPI for pertinent positives & negatives. A total of 10 systems reviewed and were otherwise negative. Past Medical & Surgical Medical Problems: (1) BPH with urinary obstruction (2) COPD (chronic obstructive pulmonary disease) (3) Coronary artery disease (4) Elevated troponin I level (5) Gross hematuria (6) Hypertension (7) Sepsis due to urinary tract infection Surgical Problems: (1) H/O mitral valve repair Family History Diabetes mellitus Gallbladder disease Heart disease Hypertension Lung disease Social History Smoking Status: Former Smoker Alcohol Use: occasionally Drug Use: none Marital Status: Housing Status: lives with significant other Occupation Status: retired Current/Historical Medications Scheduled Aspirin Enteric Coated (Ecotrin Or Generic), 81 MG PO QPM Atorvastatin (Lipitor), 40 MG PO QAM Carvedilol (Coreg), 1 TAB PO BID Celecoxib (Celebrex), 200 MG PO BID Clopidogrel Bisulfate (Clopidogrel), 75 MG PO QAM Fluticasone Furoate-Vilanterol (Breo Ellipta), 1 PUFF INH QAM Hydrochlorothiazide (Hctz), 1 TAB PO DAILY Lisinopril (Prinivil), 20 MG PO DAILY Metformin Hcl (Glucophage), 500 MG PO DAILY Multiple Vitamins W/ Minerals (Centrum Silver), 1 TAB PO QAM Polyvinyl Alcohol-Povidone (Op (Refresh), 1 DROP OPB BID Saline (Saline Nasal [place]), 1 SPRAY REJI HS Scheduled PRN Albuterol Hfa (Ventolin Hfa), 1-2 PUFFS INH Q4 PRN for SOB/Wheezing Ipratropium-Albuterol (Duoneb), 1 TREATMENT INH QID PRN for SOB/Wheezing Nitroglycerin (Nitrostat), 0.4 MG SL UD PRN for Chest Pain Allergies Coded Allergies: Morphine (Verified Allergy, Unknown, ITCHING, 04/13/18) Tramadol (Verified Adverse Reaction, Unknown, DELIRIUM, 04/13/18) Pt. instructed by doctor not to take based on information he gave provider. Physical Exam Vital Signs Date Time Temp Pulse Resp B/P (MAP) Pulse Ox O2 Delivery O2 Flow Rate FiO2 04/13/18 19:25 63 16 130/58 95 Room Air 04/13/18 18:59 81 22 121/54 98 Room Air 04/13/18 17:15 96 Room Air 04/13/18 16:59 36.8 78 22 130/87 96 Room Air Physical Exam GENERAL: Patient is awake, alert, and in no acute distress. Patient is somewhat anxious appearing. EYES: The conjunctivae are clear. The pupils are round and reactive. EARS, NOSE, MOUTH AND THROAT: The nose is without any evidence of any deformity. Mucous membranes are dry. Tongue is midline NECK: The neck is nontender and supple. RESPIRATORY: Normal respiratory effort is noted. There is no evidence of wheezing rhonchi or rales to auscultation. CARDIOVASCULAR: Regular rate and rhythm noted. There no murmurs rubs or gallops normal S1 normal S2 GASTROINTESTINAL: The abdomen is soft. Bowel sounds are present in all quadrants. Abdomen is midlly distended and diffusely tender in the right upper and right lower. BACK: No midline tenderness or or step-off noted range of motion in flexion extension as well as rotation no signs of muscle spasm noted. MUSCULOSKELETAL/EXTREMITIES: There is no evidence of gross deformity. Full range of motion is noted in the hips and shoulders. SKIN: Trace pedal edema,. NEUROLOGIC: Patient is awake alert and oriented x3. Medical Decision & Procedures ER Provider Diagnostic Interpretation: Radiology results as stated below per my review and radiologist interpretation: CHEST ONE VIEW PORTABLE CLINICAL HISTORY: 77 years-old Male presenting with Sepsis. TECHNIQUE: Portable upright AP view of the chest was obtained. COMPARISON: 03/03/2018. FINDINGS: Epicardial pacing wire projects over the right heart. Prosthetic mitral valve evident. Atherosclerosis of the aortic arch. Cardiac silhouette mildly enlarged, unchanged. Mild pulmonary vascular prominence. No focal opacity. No large effusion or pneumothorax. Degenerative changes of the thoracic spine. Upper abdomen normal. IMPRESSION: 1. Mild cardiomegaly with mild volume overload. No burke pulmonary edema. The appearance is unchanged from prior exam. Electronically signed by: Gilbert Rubi M.D. 04/13/2018 6:03 PM Laboratory Results Test 04/13/18 17:15 04/13/18 17:31 04/13/18 18:30 Erythrocyte Sedimentation Rate 49 mm/hr (0-14) Phosphorus Level 3.8 mg/dl (2.5-4.9) Total Bilirubin 0.7 mg/dl (0.2-1) Aspartate Amino Transf (AST/SGOT) 31 U/L (15-37) Alanine Aminotransferase (ALT/SGPT) 39 U/L (12-78) Alkaline Phosphatase 67 U/L (45-117) Total Creatine Kinase 44 U/L (39-308) Creatine Kinase MB < 1.0 ng/ml (0.5-3.6) Creatine Kinase MB Ratio (0-3.0) C-Reactive Protein 10.20 mg/dl (0-0.29) Total Protein 7.3 gm/dl (6.4-8.2) Albumin 3.1 gm/dl (3.4-5.0) Globulin 4.2 gm/dl (2.5-4.0) Albumin/Globulin Ratio 0.7 (0.9-2) Bedside Lactic Acid Venous 4.29 mmol/L (0.90-1.70) Urine Color DK YELLOW Urine Appearance CLOUDY (CLEAR) Urine pH 5.0 (4.5-7.5) Urine Specific [place] 1.020 (1.000-1.030) Urine Protein 2+ (NEG) Urine Glucose (UA) NEG (NEG) Urine Ketones TRACE (NEG) Urine Occult Blood 2+ (NEG) Urine Nitrite POS (NEG) Urine Bilirubin NEG (NEG) Urine Urobilinogen NEG (NEG) Urine Leukocyte Esterase MODERATE (NEG) Urine WBC (Auto) >30 /hpf (0-5) Urine RBC (Auto) 10-30 /hpf (0-4) Urine Hyaline Casts (Auto) 10-30 /lpf (0-5) Urine Epithelial Cells (Auto) 5-10 /lpf (0-5) Urine Bacteria (Auto) 4+ (NEG) Laboratory results per my review. Medications Administered Medications (Trade) Dose Ordered Sig/[place] Route Start Time Stop Time Status Last Admin Dose Admin Sodium Chloride 1,000 ml @ 999 mls/hr Q1H1M ONCE IV 04/13/18 17:08 04/13/18 18:08 DC 04/13/18 17:48 999 MLS/HR Acetaminophen (Tylenol Tab) 1,000 mg STK-MED ONCE .ROUTE 04/13/18 17:39 04/13/18 17:40 DC 04/13/18 17:41 1,000 MG Sodium Chloride 1,000 ml @ 999 mls/hr Q1H1M STAT IV 04/13/18 18:23 04/13/18 19:23 DC 04/13/18 18:25 999 MLS/HR Piperacillin Sod/ Tazobactam Sod (Zosyn Iv) 4.5 gm NOW STAT IV 04/13/18 19:05 04/13/18 19:07 DC 04/13/18 19:22 4.5 GM ECG Per My Interpretation Indication: back/shoulder pain Rate (beats per minute): 75 Rhythm: normal sinus Findings: no ectopy, other Comparison ECG Date: 03/12/18 Change: no significant change ED Course 1706: The patient was evaluated in room C2. A complete history and physical examination were performed. 1708: Ordered NSS 1,000 ml @ 999 mls/hr IV 1715: Ordered Tylenol Tab 1000 mg PO 1823: Ordered NSS 1,000 ml @ 999 mls/hr IV 1905: Ordered Zosyn IV 4.5 gm IV 4: I discussed the patient's case with Dr. Hathaway, [facility] Hospitalist. The patient will be evaluated for further management. Medical Decision Prior records/ancillary studies reviewed. Triage Nursing notes reviewed. Differential diagnosis: Etiologies such as viral syndrome, otitis, pharyngitis, pneumonia, influenza, meningitis, urinary tract infection, sepsis, bacteremia, as well as others were entertained. The patient is a 77-year-old male who presented to the emergency department for an evaluation of fever and chills. The patient's had ongoing symptoms for the last few days. The patient was treated with IV fluids in the emergency department. He was found to have an related lactic acid. He was further treated with IV antibiotics. The patient appears to have signs of urinary tract infection on urinalysis. I reviewed the patient's previous culture reports. It does appear that he has had a very resistant organism in his urine in the past. He was treated with antibiotics which would be appropriate. I discussed patient's laboratory and radiographic studies with him. Because of his symptoms I also discussed his case with the on-call [facility] hospitalist. They have agreed to evaluate patient in the emergency department for further management and disposition. Medication Reconcilliation Current Medication List: was personally reviewed by me Blood Pressure Screening Patient's blood pressure: Normal blood pressure Blood pressure disposition: Did not require urgent referral Consults Time Called: 1928 Consulting Physician: Dr. Hathaway [facility] Hospitalist Returned Call: 2023 I discussed the patient's case with Dr. Hathaway [facility] Hospitalist. The patient will be evaluated for further management. Impression Primary Impression: Sepsis Additional Impression: Sepsis due to urinary tract infection Scribe Attestation The scribe's documentation has been prepared under my direction and personally reviewed by me in its entirety. I confirm that the note above accurately reflects all work, treatment, procedures, and medical decision making performed by me. Departure Information Dispostion Being Evaluated By Hospitalist (Dr. Hathaway, [facility] Hospitalist) Referrals RV. Rao MD (PCP) Patient Instructions My [facility] Problem Qualifiers Primary Impression: Sepsis Sepsis type: sepsis due to unspecified organism Qualified Codes: A41.9 - Sepsis, unspecified organism
[2018-04-13] MEDS ORDERED: LISI20TA3 PO ×2 (17:38)
[2018-04-13] MEDS ORDERED: ACETAMINOPHEN 500 MG TAB ONE (17:39)
[2018-04-13] MEDS ORDERED: OPTIRAY 320 IV PRN (17:45)
[2018-04-13 17:48] LABS: BASO % 0.2 %; BASO ABS # 0.02 K/uL (0-0.2); EOS % 0.4 %; EOS ABS # 0.03 K/uL (0-0.5); HEMATOCRIT 37.2 % (42-52); HEMOGLOBIN 12.8 g/dL (14.0-18.0); IG# 0.01 K/uL (0.00-0.02); LYMPH % 10.6 %; MEAN CELL VOLUME 94.7 fL (80-100); MEAN CORPUSCULAR HEMOGLOBIN 32.6 pg (25-34); MEAN CORPUSCULAR HGB CONC 34.4 g/dl (32-36); MEAN PLATELET VOLUME 11.8 fL (7.4-10.4); MONO % 13.8 %; MONO ABS # 1.17 K/uL (0.11-0.59); NEUT % 74.9 %; NEUT ABS # 6.37 K/uL (1.4-6.5); PLATELET COUNT 170 K/uL (130-400); RED CELL DISTRIBUTION WIDTH CV 13.6 % (11.5-14.5); RED CELL DISTRIBUTION WIDTH SD 47.2 fL (36.4-46.3)
[2018-04-13 17:56] LABS: INR 1.1 (0.9-1.1); PTT PATIENT 27.4 SECONDS (21.0-31.0)
--- NOTE | 2018-04-13 18:04 | DIAGNOSTIC IMAGING REPORT ---
CHEST ONE VIEW PORTABLE CLINICAL HISTORY: 77 years-old Male presenting with Sepsis. TECHNIQUE: Portable upright AP view of the chest was obtained. COMPARISON: 03/03/2018. FINDINGS: Epicardial pacing wire projects over the right heart. Prosthetic mitral valve evident. Atherosclerosis of the aortic arch. Cardiac silhouette mildly enlarged, unchanged. Mild pulmonary vascular prominence. No focal opacity. No large effusion or pneumothorax. Degenerative changes of the thoracic spine. Upper abdomen normal. IMPRESSION: 1. Mild cardiomegaly with mild volume overload. No burke pulmonary edema. The appearance is unchanged from prior exam. Electronically signed by: Gilbert Rubi M.D. 04/13/2018 6:03 PM Dictated Date/Time: 04/13/2018 6:02 PM
[2018-04-13 18:16] LABS: ALBUMIN 3.1 gm/dl (3.4-5.0); ALKALINE PHOSPHATASE 67 U/L (45-117); ALT/SGPT 39 U/L (12-78); AST/SGOT 31 U/L (15-37); BLOOD UREA NITROGEN 31 mg/dl (7-18); CALCIUM 8.9 mg/dl (8.5-10.1); CARBON DIOXIDE 23 mmol/L (21-32); CKMB < 1.0 ng/ml (0.5-3.6); CREATININE 1.52 mg/dl (0.60-1.40); GLUCOSE 146 mg/dl (70-99); LIPASE 457 U/L (73-393); PHOSPHORUS 3.8 mg/dl (2.5-4.9); SODIUM 135 mmol/L (136-145); TOTAL PROTEIN 7.3 gm/dl (6.4-8.2)
[2018-04-13] MEDS ORDERED: SODIUM CHLORIDE 0.9% 1000ML 1,000 ML IV STA (18:23)
[2018-04-13 18:34] LABS: POTASSIUM 4.4 mmol/L (3.5-5.1)
[2018-04-13] MEDS ORDERED: FLUT1INH INH ×2 (18:47)
[2018-04-13] MEDS ORDERED: PIPERACILLIN/TAZOBACTAM 4.5 GM/100ML D5W IV STA (19:05)
--- NOTE | 2018-04-13 19:12 | DIAGNOSTIC IMAGING REPORT ---
ABDOMEN AND PELVIS CT WITH IV CONTRAST CT DOSE: 542.70 mGy.cm HISTORY: fever, right sided pain TECHNIQUE: Multiaxial CT images of the abdomen and pelvis were performed following the use of intravenous contrast. A dose lowering technique was utilized adhering to the principles of ALARA. COMPARISON STUDY: Abdomen and pelvis CT 04/05/2018. FINDINGS: Punctate calcified granuloma seen at the lung bases. The heart remains mildly enlarged. No pneumoperitoneum. No pneumatosis. Severe osteoarthritis within the left hip. There is a right total hip arthroplasty. No fractures within the visualized osseous structures. Small left-sided abdominal wall lipoma. This remains unchanged. The spleen remains enlarged. No hepatic or splenic masses. A few small gallstones. No gallbladder wall thickening. A few punctate calcifications within the pancreas consistent with chronic pancreatitis. No CT evidence for acute pancreatitis. No retroperitoneal lymphadenopathy. Stable 1 cm hyperdense nonenhancing exophytic lesion within the upper pole the left kidney. This likely represents a hyperdense cyst. Stable 4 mm stone within the upper pole of the right kidney. No left renal calculi identified. No hydronephrosis. A few small bilateral peripelvic renal cysts. Bilateral perinephric edema remains unchanged. A 1.1 cm cyst within the upper pole of the left kidney. Subcentimeter hypodense lesion within the lower pole of the left kidney is too small to characterize. Bladder is not well-visualized due to metallic artifact from the right hip prosthesis. There appears to be moderate bladder wall thickening. Trace pelvic free fluid. No bowel wall thickening or obstruction. Normal appendix. IMPRESSION: 1. Right-sided nephrolithiasis. No ureteral stones. No hydronephrosis. 2. Mild bilateral perinephric edema, unchanged. 3. No bowel wall thickening or obstruction. 4. Trace ascites. 5. Moderate bladder wall thickening. Recommend correlation with urinalysis to exclude a cystitis. 6. Cholelithiasis. No gallbladder wall thickening. 7. Additional findings as described above. Electronically signed by: Travis Hart M.D. 04/13/2018 7:11 PM Dictated Date/Time: 04/13/2018 7:01 PM
[2018-04-13] MEDS ORDERED: ONDANSETRON INJ 2 MG/ML 2 ML VIAL IV PRN (21:00)
[2018-04-13] MEDS ORDERED: NITROGLYCERIN 0.4 MG SL PER TAB CHARGE SL PRN (21:00)
[2018-04-13] MEDS ORDERED: PIPERACILL/TAZOBAC CONSULT ACTIVE PRN (21:00)
[2018-04-13] MEDS ORDERED: ALBUT/IPRATROP 3MG/0.5MG NEB 3 ML VIAL INH PRN (21:00)
[2018-04-13] MEDS ORDERED: ALBUTEROL HFA 8 GM INHALER INH PRN (21:00)
[2018-04-13] MEDS ORDERED: TAMSULOSIN HCL 0.4 MG CAP PO STA (21:17)
--- NOTE | 2018-04-13 22:30 | History and Physical ---
History & Physical Date & Time of Service: Apr 13, 2018 at 22:30 Chief Complaint: Kidney Stone, Temp 100+, Pain On Right Side Primary Care Physician: RV. Rao MD History of Present Illness Source: patient, hospital records The patient is a 77-year-old male presents to the emergency department he reports being told by Dr. Bray office that he has a kidney stone noted 1 week prior to arrival. He also developed a fever to 101.2 at that time, along with back pain, shakiness, generalized fatigue, dizziness and imbalance. The patient reports he that he has been still passing urine, and denies any blood in urine, change in urinary frequency, dysuria or nocturia. He does have an occasional cough productive of clear mucus. Past Medical/Surgical History Medical Problems: (1) BPH with urinary obstruction (2) CHF (congestive heart failure) (3) Concussion (4) COPD (chronic obstructive pulmonary disease) (5) Coronary artery disease (6) Depression (7) Elevated troponin I level (8) Fall (9) Gross hematuria (10) Head injury (11) Hypertension (12) Multiple contusions (13) Pneumonia (14) Sepsis due to urinary tract infection (15) Suicide attempt by hanging (16) Suicide gesture (17) UTI (urinary tract infection) Surgical Problems: (1) H/O mitral valve repair Family History Diabetes mellitus Gallbladder disease Heart disease Hypertension Lung disease Social History Smoking Status: Former Smoker Smokeless Tobacco Use: No Alcohol Use: none Drug Use: none Marital Status: Housing status: lives with family Occupational Status: retired Immunizations History of Influenza Vaccine: Unknown Influenza Vaccine Date: Jun 07, 2007 History of Tetanus Vaccine?: Unknown Tetanus Immunization Date: Jan 03, 2000 History of Pneumococcal: Unknown History of Hepatitis B Vaccine: Unknown Allergies Coded Allergies: Morphine (Verified Allergy, Unknown, ITCHING, 04/13/18) Tramadol (Verified Adverse Reaction, Unknown, DELIRIUM, 04/13/18) Pt. instructed by doctor not to take based on information he gave provider. Home Medications Scheduled Aspirin Enteric Coated (Ecotrin Or Generic), 81 MG PO QPM Atorvastatin (Lipitor), 40 MG PO QAM Carvedilol (Coreg), 1 TAB PO BID Celecoxib (Celebrex), 200 MG PO BID Clopidogrel Bisulfate (Clopidogrel), 75 MG PO QAM Fluticasone Furoate-Vilanterol (Breo Ellipta), 1 PUFF INH QAM Hydrochlorothiazide (Hctz), 1 TAB PO DAILY Lisinopril (Prinivil), 20 MG PO DAILY Multiple Vitamins W/ Minerals (Centrum Silver), 1 TAB PO QAM Polyvinyl Alcohol-Povidone (Op (Refresh), 1 DROP OPB BID Saline (Saline Nasal [place]), 1 SPRAY REJI HS Scheduled PRN Albuterol Hfa (Ventolin Hfa), 1-2 PUFFS INH Q4 PRN for SOB/Wheezing Ipratropium-Albuterol (Duoneb), 1 TREATMENT INH QID PRN for SOB/Wheezing Nitroglycerin (Nitrostat), 0.4 MG SL UD PRN for Chest Pain Review of Systems The patient denies chest pain, palpitations, shortness of breath, dyspnea on exertion, lower extremity swelling, sore throat, chills, sweats, weight change, fatigue, nausea, vomiting, diarrhea , constipation, blood in urine or stool, dysuria, urinary frequency or urgency, headache, memory loss, loss of consciousness, rash, abnormal bruising or bleeding, focal weakness, numbness or tingling in arms or legs, generalized arthralgias or myalgias, neck pain, or night sweats. The review of systems is otherwise negative other than for that already noted above, and at least 10 systems have been reviewed. Physical Exam Vital Signs Date Time Temp Pulse Resp B/P (MAP) Pulse Ox O2 Delivery O2 Flow Rate FiO2 04/13/18 22:00 60 18 120/54 95 Room Air 04/13/18 21:12 63 19 118/50 96 Room Air 04/13/18 19:25 63 16 130/58 95 Room Air 04/13/18 18:59 81 22 121/54 98 Room Air 04/13/18 17:15 96 Room Air 04/13/18 16:59 36.8 78 22 130/87 96 Room Air The patient is awake, alert and oriented 3, well developed and well nourished, normocephalic and atraumatic, lying in bed and in no acute distress. HEENT--PERRL, EOMI, mucous membranes and oropharynx dry. Neck--supple. No JVD. No bruits. Thyroid normal, trachea midline, no adenopathy. Heart--normal S1 and S2. No murmurs, rubs or gallops. Lungs--clear bilaterally, no respiratory distress, no accessory muscle use. Abdomen--normal bowel sounds and soft. Nontender. Nondistended, no hernias or masses, no organomegaly. Extremities--no cyanosis or clubbing. No edema. There are good distal pulses b/ l. Dermatologic--normal skin turgor, normal color, no abnormal lymph nodes, no rash. Neurologic--cranial nerves II through XII grossly intact. Rheumatologic--normal range of motion. Psychiatric--normal affect. Diagnostics Laboratory Results Results Past 24 Hours Test 04/13/18 17:15 04/13/18 17:31 04/13/18 18:30 Range/Units White Blood Count 8.50 4.8-10.8 K/uL Red Blood Count 3.93 4.7-6.1 M/uL Hemoglobin 12.8 14.0-18.0 g/dL Hematocrit 37.2 42-52 % Mean Corpuscular Volume 94.7 80-100 fL Mean Corpuscular Hemoglobin 32.6 25-34 pg Mean Corpuscular Hemoglobin Concent 34.4 32-36 g/dl Platelet Count 170 130-400 K/uL Mean Platelet Volume 11.8 7.4-10.4 fL Neutrophils (%) (Auto) 74.9 % Lymphocytes (%) (Auto) 10.6 % Monocytes (%) (Auto) 13.8 % Eosinophils (%) (Auto) 0.4 % Basophils (%) (Auto) 0.2 % Neutrophils # (Auto) 6.37 1.4-6.5 K/uL Lymphocytes # (Auto) 0.90 1.2-3.4 K/uL Monocytes # (Auto) 1.17 0.11-0.59 K/uL Eosinophils # (Auto) 0.03 0-0.5 K/uL Basophils # (Auto) 0.02 0-0.2 K/uL RDW Standard Deviation 47.2 36.4-46.3 fL RDW Coefficient of Variation 13.6 11.5-14.5 % Immature Granulocyte % (Auto) 0.1 % Immature Granulocyte # (Auto) 0.01 0.00-0.02 K/uL Erythrocyte Sedimentation Rate 49 0-14 mm/hr Prothrombin Time 12.0 9.0-12.0 SECONDS Prothromb Time International Ratio 1.1 0.9-1.1 Activated Partial Thromboplast Time 27.4 21.0-31.0 SECONDS Partial Thromboplastin Ratio 1.1 Sodium Level 135 136-145 mmol/L Potassium Level 4.4 3.5-5.1 mmol/L Chloride Level 101 98-107 mmol/L Carbon Dioxide Level 23 21-32 mmol/L Anion Gap 11.0 3-11 mmol/L Blood Urea Nitrogen 31 7-18 mg/dl Creatinine 1.52 0.60-1.40 mg/dl Est Creatinine Clear Calc Drug Dose 43.4 ml/min Estimated GFR () 51.2 Estimated GFR (Non- 44.2 BUN/Creatinine Ratio 20.4 10-20 Random Glucose 146 70-99 mg/dl Calcium Level 8.9 8.5-10.1 mg/dl Phosphorus Level 3.8 2.5-4.9 mg/dl Magnesium Level 2.0 1.8-2.4 mg/dl Total Bilirubin 0.7 0.2-1 mg/dl Aspartate Amino Transf (AST/SGOT) 31 15-37 U/L Alanine Aminotransferase (ALT/SGPT) 39 12-78 U/L Alkaline Phosphatase 67 45-117 U/L Total Creatine Kinase 44 39-308 U/L Creatine Kinase MB < 1.0 0.5-3.6 ng/ml Creatine Kinase MB Ratio 0-3.0 Troponin I 0.060 0-0.045 ng/ml C-Reactive Protein 10.20 0-0.29 mg/dl Total Protein 7.3 6.4-8.2 gm/dl Albumin 3.1 3.4-5.0 gm/dl Globulin 4.2 2.5-4.0 gm/dl Albumin/Globulin Ratio 0.7 0.9-2 Lipase 457 73-393 U/L Bedside Lactic Acid Venous 4.29 0.90-1.70 mmol/L Urine Color DK YELLOW Urine Appearance CLOUDY CLEAR Urine pH 5.0 4.5-7.5 Urine Specific [place] 1.020 1.000-1.030 Urine Protein 2+ NEG Urine Glucose (UA) NEG NEG Urine Ketones TRACE NEG Urine Occult Blood 2+ NEG Urine Nitrite POS NEG Urine Bilirubin NEG NEG Urine Urobilinogen NEG NEG Urine Leukocyte Esterase MODERATE NEG Urine WBC (Auto) >30 0-5 /hpf Urine RBC (Auto) 10-30 0-4 /hpf Urine Hyaline Casts (Auto) 10-30 0-5 /lpf Urine Epithelial Cells (Auto) 5-10 0-5 /lpf Urine Bacteria (Auto) 4+ NEG Microbiology Results 04/13/18 Blood Culture, Received Pending 04/13/18 Blood Culture, Received Pending 04/13/18 Urine Culture, Received Pending Diagnostic Radiology Patient Name: MALKA DELAROSA Unit Number: [id number] Dictated: 04/13/181801 Transcribed: 04/13/181801 [facility] Printed Date/Time: [~ rep prt dt]/[~ rep prt tm] [~ rep ct labl] - [~ rep ct ivnm] [facility] [place] [address] Dictated: 04/13/181801 Transcribed: 04/13/181801 PBS Printed Date/Time: [~ rep prt dt]/[~ rep prt tm] [~ rep ct labl] - [~ rep ct ivnm] [~ rep ct add3]] CHEST ONE VIEW PORTABLE CLINICAL HISTORY: 77 years-old Male presenting with Sepsis. TECHNIQUE: Portable upright AP view of the chest was obtained. COMPARISON: 03/03/2018. FINDINGS: Epicardial pacing wire projects over the right heart. Prosthetic mitral valve evident. Atherosclerosis of the aortic arch. Cardiac silhouette mildly enlarged, unchanged. Mild pulmonary vascular prominence. No focal opacity. No large effusion or pneumothorax. Degenerative changes of the thoracic spine. Upper abdomen normal. IMPRESSION: 1. Mild cardiomegaly with mild volume overload. No burke pulmonary edema. The appearance is unchanged from prior exam. Electronically signed by: Gilbert Rubi M.D. 04/13/2018 6:03 PM Dictated Date/Time: 04/13/2018 6:02 PM The status of this report is Signed. Draft = Not yet reviewed or approved by Radiologist. Signed = Reviewed and approved by Radiologist. <AttendingPhy></AttendingPhy> <FamilyPhy>Bassam Bray II., DO</ FamilyPhy> <PrimaryPhy>RV. Rao MD</PrimaryPhy> <UnitNumber> [id number]</UnitNumber> <VisitNumber>[id number]</VisitNumber> <PatientName> MALKA DELAROSA</PatientName> <DateOfBirth>1940</DateOfBirth> <Location >[facility]</Location> <ServiceDate>04/13/18</ServiceDate> <MNE>ESINDI</MNE> < OrderingPhy>Juancarlos Chiang D.O.</OrderingPhy> <OrderingPhyMNE>f rep ord dr holloawy</OrderingPhyMNE> <DictatingPhyMNE>f rep dict dr holloway</DictatingPhyMNE> < CCListMNE>f rep ct mne</CCListMNE> <AdmittingPhyMNE>f pt admit dr holloway</ AdmittingPhyMNE> <AttendingPhyMNE>f pt attend dr holloway</AttendingPhyMNE> <ConsultingPhyMNE>f pt consult dr holloway</ConsultingPhyMNE> <FamilyPhyMNE>f pt fam dr holloway</FamilyPhyMNE> <OtherPhyMNE>f pt other dr holloway</OtherPhyMNE> < PrimaryPhyMNE>f pt prim care dr holloway</PrimaryPhyMNE> <ReferringPhyMNE>f pt referring dr holloway</ReferringPhyMNE> Patient Name: MALKA DELAROSA Unit Number: [id number] Dictated: 04/13/181900 Transcribed: 04/13/181900 [facility] Printed Date/Time: [~ rep prt dt]/[~ rep prt tm] [~ rep ct labl] - [~ rep ct ivnm] [facility] [place] [place] [address] Dictated: 04/13/181900 Transcribed: 04/13/181900 [facility] Printed Date/Time: [~ rep prt dt]/[~ rep prt tm] [~ rep ct labl] - [~ rep ct ivnm] [~ rep ct add3]] ABDOMEN AND PELVIS CT WITH IV CONTRAST CT DOSE: 542.70 mGy.cm HISTORY: fever, right sided pain TECHNIQUE: Multiaxial CT images of the abdomen and pelvis were performed following the use of intravenous contrast. A dose lowering technique was utilized adhering to the principles of ALARA. COMPARISON STUDY: Abdomen and pelvis CT 04/05/2018. FINDINGS: Punctate calcified granuloma seen at the lung bases. The heart remains mildly enlarged. No pneumoperitoneum. No pneumatosis. Severe osteoarthritis within the left hip. There is a right total hip arthroplasty. No fractures within the visualized osseous structures. Small left-sided abdominal wall lipoma. This remains unchanged. The spleen remains enlarged. No hepatic or splenic masses. A few small gallstones. No gallbladder wall thickening. A few punctate calcifications within the pancreas consistent with chronic pancreatitis. No CT evidence for acute pancreatitis. No retroperitoneal lymphadenopathy. Stable 1 cm hyperdense nonenhancing exophytic lesion within the upper pole the left kidney. This likely represents a hyperdense cyst. Stable 4 mm stone within the upper pole of the right kidney. No left renal calculi identified. No hydronephrosis. A few small bilateral peripelvic renal cysts. Bilateral perinephric edema remains unchanged. A 1.1 cm cyst within the upper pole of the left kidney. Subcentimeter hypodense lesion within the lower pole of the left kidney is too small to characterize. Bladder is not well-visualized due to metallic artifact from the right hip prosthesis. There appears to be moderate bladder wall thickening. Trace pelvic free fluid. No bowel wall thickening or obstruction. Normal appendix. IMPRESSION: 1. Right-sided nephrolithiasis. No ureteral stones. No hydronephrosis. 2. Mild bilateral perinephric edema, unchanged. 3. No bowel wall thickening or obstruction. 4. Trace ascites. 5. Moderate bladder wall thickening. Recommend correlation with urinalysis to exclude a cystitis. 6. Cholelithiasis. No gallbladder wall thickening. 7. Additional findings as described above. Electronically signed by: Travis Hart M.D. 04/13/2018 7:11 PM Dictated Date/Time: 04/13/2018 7:01 PM The status of this report is Signed. Draft = Not yet reviewed or approved by Radiologist. Signed = Reviewed and approved by Radiologist. <AttendingPhy></AttendingPhy> <FamilyPhy>Bassam Bray II., DO</ FamilyPhy> <PrimaryPhy>RV. Rao MD</PrimaryPhy> <UnitNumber> [id number]</UnitNumber> <VisitNumber>[id number]</VisitNumber> <PatientName> MALKA DELAROSA</PatientName> <DateOfBirth>1940</DateOfBirth> <Location >[facility]</Location> <ServiceDate>04/13/18</ServiceDate> <MNE>ESINDI</MNE> < OrderingPhy>Juancarlos Chiang D.O.</OrderingPhy> <OrderingPhyMNE>f rep ord dr holloway</OrderingPhyMNE> <DictatingPhyMNE>f rep dict dr holloway</DictatingPhyMNE> < CCListMNE>f rep ct mne</CCListMNE> <AdmittingPhyMNE>f pt admit dr holloway</ AdmittingPhyMNE> <AttendingPhyMNE>f pt attend dr holloway</AttendingPhyMNE> <ConsultingPhyMNE>f pt consult dr holloway</ConsultingPhyMNE> <FamilyPhyMNE>f pt fam dr holloway</FamilyPhyMNE> <OtherPhyMNE>f pt other dr holloway</OtherPhyMNE> < PrimaryPhyMNE>f pt prim care dr holloway</PrimaryPhyMNE> <ReferringPhyMNE>f pt referring dr holloway</ReferringPhyMNE> EKG MALKA DELAROSA ID:[id number] 13-APR-2018 17:43:25 [facility] Normal sinus rhythm Left axis deviation Cannot rule out Anterior infarct , age undetermined Abnormal ECG When compared with ECG of 12-MAR-2018 12:53, No significant change was found Confirmed by BAKARI ABRAHAM ([id number]) on 04/13/2018 10:16:58 PM 25mm/s 10mm/mV 150Hz 8.0 SP2 12SL 241 DECLAN: 13 Referred by: Referred Self Confirmed By: BAKARI Obrien. rate 75 BPM CA interval 184 ms QRS duration 94 ms QT/QTc 366/408 ms P-R-T axes 45 -35 25 1940 (77 yr) Male 83in Room:B Loc:15 State Editor:CHIRAG LONGORIA Impression Assessment and Plan BPH with bladder outlet obstruction/chronic cystitis/bilateral perinephric edema/right-sided nephrolithiasis/causing sepsis-- Start Zosyn 3.375 g IV every 8 hours. Start tamsulosin 0.4 mg p.o. at bedtime, with first dose tonight. Follow urine culture and sensitivity. Hold aspirin 81 mg daily and clopidogrel 75 mg daily until determined if procedure will be performed. Consult urology Dr. Bray. Acute kidney injury-- Hold HCTZ, lisinopril and Celebrex. NSS at 100 mils per hour. Serial BMP and magnesium levels. Elevated troponin-- The patient will be admitted to telemetry for serial cardiac enzymes, serial EKG's, cardiac rhythm monitoring and a 2-D echocardiogram with Dopplers. Likely supply demand mismatch and associated with acute kidney injury. Continue carvedilol 25 mg p.o. twice daily with hold parameters. Hold HCTZ, and lisinopril as noted above. Hyperlipidemia-- Continue atorvastatin 40 mg daily. COPD-- Continue Ventolin HFA as needed, DuoNeb as needed and [place] nasal spray. Chronic pancreatitis-- CT findings note a few punctate calcifications within the pancreas consistent with chronic pancreatitis but no evidence for acute pancreatitis. Lipase is mildly elevated at 457. We will repeat lipase in the a.m. Patient has no symptoms in this regard. Splenomegaly-- Noted on CT as persistent and unchanged compared to CT of 04/05/18. Left kidney 1 cm hyperdense nonenhancing exophytic lesion-- Likely represents hyperdense cyst. Orthopedic- Status post right total hip arthroplasty. Severe left hip osteoarthritis. For now holding Celebrex. Advanced Directives Existing Advance Directive: No Existing Living Will: No Existing Power of Journalism Internship: No Resuscitation Status VTE Prophylaxis Will order VTE Prophylaxis: Yes Social Service Consult None Apply
[2018-04-13 23:05] VITALS: Ht 177.8 cm; Wt 86.0 kg
[2018-04-13 23:40] VITALS: TEMP 36.4
[2018-04-13] MEDS: CARVEDILOL 25 MG TAB PO SCH (23:46)
[2018-04-13 23:48] VITALS: BP 137/67; PULSE 65
[2018-04-13] MEDS: SODIUM CHLORIDE 0.65% NA SOLN 45 ML (OCEAN) NAE SCH (23:52)
[2018-04-13] MEDS: ARTIFICIAL TEARS OP SOLN OPB SCH (23:53)
[2018-04-13] MEDS: SODIUM CHLORIDE 0.9% 1000ML 1,000 ML IV SCH (23:54)
[2018-04-14] VITALS (8 sets, daily range): BP systolic 137–158; BP diastolic 65–74; PULSE 67–73; TEMP 36.7–38.4; O2SAT 91–93
[2018-04-14] MEDS: PIPERACILL/TAZOBAC IV 3.375 GM in DEXTROSE 5% 100ML 100 ML IV SCH ×3 (02:09→18:07)
[2018-04-14 05:34] LABS: EOS % 0.3 %; EOS ABS # 0.02 K/uL (0-0.5); HEMATOCRIT 33.2 % (42-52); HEMOGLOBIN 11.4 g/dL (14.0-18.0); IG# 0.01 K/uL (0.00-0.02); LYMPH % 10.6 %; LYMPH ABS # 0.77 K/uL (1.2-3.4); MEAN CELL VOLUME 93.8 fL (80-100); MEAN CORPUSCULAR HEMOGLOBIN 32.2 pg (25-34); MEAN CORPUSCULAR HGB CONC 34.3 g/dl (32-36); MEAN PLATELET VOLUME 11.2 fL (7.4-10.4); MONO ABS # 0.73 K/uL (0.11-0.59); NEUT ABS # 5.75 K/uL (1.4-6.5); PLATELET COUNT 148 K/uL (130-400); RED CELL DISTRIBUTION WIDTH CV 13.6 % (11.5-14.5); RED CELL DISTRIBUTION WIDTH SD 46.8 fL (36.4-46.3); WHITE BLOOD COUNT 7.28 K/uL (4.8-10.8)
[2018-04-14 05:50] LABS: INR 1.1 (0.9-1.1); PTT PATIENT 28.6 SECONDS (21.0-31.0)
[2018-04-14 06:01] LABS: CALCIUM 7.6 mg/dl (8.5-10.1); CREATININE 1.3 mg/dl (0.60-1.40); POTASSIUM 4.1 mmol/L (3.5-5.1)
[2018-04-14] MEDS ORDERED: GLC/500 PO ×2 (08:01)
[2018-04-14] MEDS ORDERED: GLUCAGON FOR INJ 1 MG VIAL SQ PRN (08:15)
[2018-04-14] MEDS ORDERED: DEXTROSE 50% 50 ML SYR IV PRN (08:15)
[2018-04-14] MEDS ORDERED: CARBOHYDRATES FOR HYPOGLYCEMIA PO PRN (08:15)
[2018-04-14] MEDS ORDERED: GLUCOSE 40% GEL 15 GM TUBE PO PRN (08:15)
[2018-04-14] MEDS ORDERED: GLUCOSE 10 TABS/TUBE PO PRN (08:15)
[2018-04-14] MEDS: CARVEDILOL 25 MG TAB PO SCH ×2 (09:12→21:16)
[2018-04-14] MEDS: ATORVASTATIN 40 MG TAB PO SCH (09:12)
[2018-04-14] MEDS: ARTIFICIAL TEARS OP SOLN OPB SCH ×2 (09:14→21:16)
[2018-04-14] MEDS: INSULIN ASPART 100 UNITS/ML 3 ML PEN SC SCH ×4 (09:15→21:00)
[2018-04-14] MEDS: SODIUM CHLORIDE 0.9% 1000ML 1,000 ML IV SCH (09:21)
--- NOTE | 2018-04-14 12:49 | Urology Consultation ---
History General Date of Service: Apr 14, 2018. Chief Complaint: R flank pain, UTI Primary Care Physician: RV. Rao MD Pt seen a urologist before?: Yes (Dr. Bray) If yes, why?: BPH, Hematuria, UTI History of Present Illness 77 YO male, BPH, UTI, fever, stable 4mm stone in R upper pole. Patient seen for initial evaluation by Dr. Bray in March for BPH, hematuria, and UTI. Undergoing hematuria workup when a 4mm stable R upper pole stone was found on CT. Patient called our urology outpatient office yesterday, reporting fevers as high as 102 x 1 week, was advised by our office to report to ED. Repeat CT scan yesterday showing stable 4mm stone in R upper pole, no ureteral stones, no hydronephrosis. UC&S yesterday prelim growing E. Coli. Creatinine 1.30 this AM. Patient reports feeling tired this morning, remains febrile. States that his R flank discomfort has improved. Rates discomfort as 1/10. Denies urinary issues: passing urine without difficulty, no gross hematuria, no dysuria/frequency/urgency/incontinence. Denies nausea/vomiting, tolerating PO intake. Imaging Imaging: CT Images were done at: [facility] Problem List Medical Problems: (1) CHF (congestive heart failure) Status: Acute (2) Pneumonia Status: Acute (3) Sepsis Status: Acute (4) UTI (urinary tract infection) Status: Acute Past History BPH, congestive heart failure, COPD, coronary artery disease, depression, hypertension, suicidality, urinary tract infection, other (hematuria) Family History Diabetes mellitus Gallbladder disease Heart disease Hypertension Lung disease Social History Hx Tobacco Use In Past Year?: No Smoking: quit greater than 1 year Marital status: Housing status: lives with family Occupation status: retired Immunizations History of Influenza Vaccine: Unknown Influenza Vaccine Date: Jun 07, 2007 History of Tetanus Vaccine?: Unknown Tetanus Immunization Date: Jan 03, 2000 History of Pneumococcal: Unknown History of Hepatitis B Vaccine: Unknown History of MDRO No Allergies Coded Allergies: Morphine (Verified Allergy, Unknown, ITCHING, 04/13/18) Tramadol (Verified Adverse Reaction, Unknown, DELIRIUM, 04/13/18) Pt. instructed by doctor not to take based on information he gave provider. Medications Home Medications: Home Meds and Scripts Medications Dose Route/Sig Max Daily Dose Days Date Category Glucophage (Metformin Hcl) 500 Mg Tab 500 Mg PO DAILY 04/14/18 Reported Prinivil (Lisinopril) 20 Mg Tab 20 Mg PO DAILY 04/13/18 Reported Hctz (Hydrochlorothiazide) 25 Mg Tab 1 Tab PO DAILY 30 03/13/18 Rx Nitrostat (Nitroglycerin) 0.4 Mg/1 Tab Subl 0.4 Mg SL UD PRN 30 03/13/18 Rx Lipitor (Atorvastatin Calcium) 40 Mg Tab 40 Mg PO QAM 30 03/13/18 Rx Clopidogrel (Clopidogrel Bisulfate) 75 Mg Tab 75 Mg PO QAM 30 03/13/18 Rx Ventolin Hfa (Albuterol) 200 Puffs/60136 Mcg Aers 1-2 Puffs INH Q4 PRN 03/12/18 Reported Duoneb (Ipratropium-Albuterol) 3 Ml Nebu 1 Treatment INH QID PRN 03/12/18 Reported Breo Ellipta (Fluticasone Furoate-Vilanterol) 1 Inh Inh 1 Puff INH QAM 03/03/18 Reported Refresh (Polyvinyl Alcohol-Povidone (Op) 1 Marcos Marcos 1 Drop OPB BID 03/03/18 Reported Saline Nasal [place] (Saline) 0.65 % Spr 1 [place] REJI HS 03/03/18 Reported Celebrex (Celecoxib) 200 Mg Cap 200 Mg PO BID 03/03/18 Reported Coreg (Carvedilol) 25 Mg Tab 1 Tab PO BID 30 06/28/15 Reported Centrum Silver (Multiple Vitamins W/ Minerals) 1 Chw Chw 1 Tab PO QAM 01/12/14 Reported Ecotrin Or Generic (Aspirin) 81 Mg Tab 81 Mg PO QPM 03/05/12 Reported Inpatient Medications: Current Inpatient Medications Medications (Trade) Dose Ordered Sig/[place] Route Start Time Stop Time Status Last Admin Dose Admin Ioversol (Optiray 320) 100 ml UD PRN IV 04/13/18 17:45 04/17/18 17:44 Acetaminophen (Tylenol Tab) 650 mg Q4H PRN PO 04/13/18 21:00 05/13/18 20:59 Albuterol (Ventolin Hfa Inhaler) 2 puffs Q4 PRN INH 04/13/18 21:00 05/13/18 20:59 Atorvastatin Calcium (Lipitor Tab) 40 mg QAM PO 04/14/18 09:00 05/14/18 08:59 04/14/18 09:12 40 MG Carvedilol (Coreg Tab) 25 mg BID PO 04/13/18 21:00 05/13/18 20:59 04/14/18 09:12 25 MG Albuterol/ Ipratropium (Duoneb) 3 ml QID PRN INH 04/13/18 21:00 05/13/18 20:59 Nitroglycerin (Nitrostat Tab) 0.4 mg UD PRN SL 04/13/18 21:00 05/13/18 20:59 Sodium Chloride ([place] Nasal [place]) 2 sprays HS REJI 04/13/18 21:00 05/13/18 20:59 04/13/18 23:52 2 SPRAYS Miscellaneous Information (Order Awaiting Action) 1 ea QS N/A 04/14/18 00:00 05/14/18 00:00 Artificial Tears (Artificial Tears) 1 drops BID OPB 04/13/18 21:00 05/13/18 20:59 04/14/18 09:14 1 DROPS Ondansetron HCl (Zofran Inj) 4 mg Q6H PRN IV 04/13/18 21:00 05/13/18 20:59 Piperacillin Sod/ Tazobactam Sod 3.375 gm/Dextrose 115 ml @ 28.75 mls/ hr Q8H IV 04/14/18 02:00 04/23/18 18:59 04/14/18 09:14 28.75 MLS/HR Miscellaneous Information (Consult) 1 ea UD PRN N/A 04/13/18 21:00 05/13/18 20:59 Sodium Chloride 1,000 ml @ 100 mls/hr Q10H IV 04/13/18 23:59 05/13/18 23:58 04/14/18 09:21 100 MLS/HR Tamsulosin HCl (Flomax Cap) 0.4 mg HS PO 04/14/18 21:00 05/14/18 20:59 Insulin Aspart (novoLOG ASPART) SLIDING SCALE If C... ACHS SC 04/14/18 12:00 05/14/18 11:59 04/14/18 09:15 4 UNITS Glucose (Glucose 40% Gel) 15-30 GRAMS 15 GRAMS... UD PRN PO 04/14/18 08:15 05/14/18 08:14 Glucose (Glucose Chew Tab) 4-8 Tablets 4 Tabl... UD PRN PO 04/14/18 08:15 05/14/18 08:14 Dextrose (Dextrose 50% 50ML Syringe) 25-50ML 25ML FOR ... UD PRN IV 04/14/18 08:15 05/14/18 08:14 Glucagon (Glucagon Inj) 1 mg UD PRN SQ 04/14/18 08:15 05/14/18 08:14 Carbohydrates (Carbohydrates For Hypoglycemia) 15-30 GRAMS 15 grams if BSG 54-69... UD PRN PO 04/14/18 08:15 05/14/18 08:14 Review of Systems Review of Systems Constitutional: + fever, No chills Eyes: No blurred vision, No double vision Neurological: No dizzy, No numbness/tingling Gastrointestinal: No abdominal pain, No nausea, No vomiting Cardiovascular: No chest pain Respiratory: No shortness of breath Skin: No rash Ears / Nose / Throat: No hearing loss Psychologic / Mental: No problem reported Male : + infections, + kidney stones, No frequent urination, No painful urination, No urinary retention, No blood in urine Physical Exam Vital Signs: Vital Signs Past 12 Hours Date Time Temp Pulse Resp B/P (MAP) Pulse Ox O2 Delivery O2 Flow Rate FiO2 04/14/18 11:20 37.3 73 16 144/67 (92) 91 Room Air 04/14/18 08:01 93 Room Air 04/14/18 07:45 Room Air 04/14/18 07:28 37.6 73 20 158/74 (102) 93 Room Air 04/14/18 05:45 37.1 04/14/18 03:50 37.5 Physical Exam: General Appearance: no apparent distress Eyes: bilateral eyes normal inspection ENT: hearing grossly normal Neck: supple, no JVD Respiratory/Chest: no respiratory distress, no accessory muscle use Cardiovascular: no JVD Gastrointestinal: Abdomen: normal abdomen Bladder: normal bladder Renal: cva tenderness (mild right) Extremities: normal inspection Neurologic/Psychiatric: alert, normal mood/affect, oriented x 3 Skin: normal color Assessment & Plan Assessment & Plan 77 YO male, BPH, UTI, fever, stable 4mm stone in R upper pole. R upper pole stone Stone appears to remain in a stable position, no ureteral stones or hydronephrosis. Creatinine 1.30 this AM. Right flank discomfort is mild, which I suspect is related to stable stone or UTI rather than obstruction. Ultimately, I suspect that this stone could be the cause of recurrent UTI and that this patient would benefit from laser lithotripsy, however I discussed with patient that we will plan for this in the outpatient setting after acute infectious episode has resolved. Continue IVF, Flomax QHS, and pain control PRN. Strain all urine. Will provide diet today, will make patient NPO at midnight in the event that patient condition worsens, stone position changes and stent placement is required. UTI Prelim growing E. Coli, continue broad spectrum antibiotics. Recommend transition to oral therapy pending sensitivities for a total of 10-14 days of therapy. Will check PSA today for elevation, may consider longer course of antibiotics if suspecting prostatitis. Thank you for the consult. Will continue to follow along with primary service. Agree with above psa is less than 1 making acute prostatitis less likely
[2018-04-14] MEDS: ACETAMINOPHEN 325 MG TAB PO PRN (13:42)
--- NOTE | 2018-04-14 15:49 | Hospitalist Progress Note ---
Hospitalist Progress Note Date of Service Apr 14, 2018. Subjective Pt evaluation today including: conversation w/ patient, conversation w/ family , physical exam, chart review, lab review, review of studies, review of inpatient medication list Patient seen and evaluated. No acute events overnight. Still having intermittent feelings of chills/fever. Had low grade fever this AM of 99 F No pain at this time. NANCY is resolved. Troponins trending up which may be from NANCY - currently no CP or SOB, no ischemic findings on EKG and this is likely some demand mismatch in setting of infection/illness Growing e. coli in urine which has been common for him and is MDR. Question of possible prostatitis or stone contamination. Constitutional: + fever, + chills Respiratory: No cough, No shortness of breath Cardiovascular: No chest pain Abdomen: No pain, No nausea, No vomiting, No diarrhea, No constipation Musculoskeletal: No swelling, No calf pain Male : No dysuria Heme: No abnormal bleeding/bruising Medications Current Inpatient Medications Medications (Trade) Dose Ordered Sig/[place] Route Start Time Stop Time Status Last Admin Dose Admin Ioversol (Optiray 320) 100 ml UD PRN IV 04/13/18 17:45 04/17/18 17:44 Acetaminophen (Tylenol Tab) 650 mg Q4H PRN PO 04/13/18 21:00 05/13/18 20:59 04/14/18 13:42 650 MG Albuterol (Ventolin Hfa Inhaler) 2 puffs Q4 PRN INH 04/13/18 21:00 05/13/18 20:59 Atorvastatin Calcium (Lipitor Tab) 40 mg QAM PO 04/14/18 09:00 05/14/18 08:59 04/14/18 09:12 40 MG Carvedilol (Coreg Tab) 25 mg BID PO 04/13/18 21:00 05/13/18 20:59 04/14/18 09:12 25 MG Albuterol/ Ipratropium (Duoneb) 3 ml QID PRN INH 04/13/18 21:00 05/13/18 20:59 Nitroglycerin (Nitrostat Tab) 0.4 mg UD PRN SL 04/13/18 21:00 05/13/18 20:59 Sodium Chloride ([place] Nasal [place]) 2 sprays HS REJI 04/13/18 21:00 05/13/18 20:59 04/13/18 23:52 2 SPRAYS Miscellaneous Information (Order Awaiting Action) 1 ea QS N/A 04/14/18 00:00 05/14/18 00:00 Artificial Tears (Artificial Tears) 1 drops BID OPB 04/13/18 21:00 05/13/18 20:59 04/14/18 09:14 1 DROPS Ondansetron HCl (Zofran Inj) 4 mg Q6H PRN IV 04/13/18 21:00 05/13/18 20:59 Piperacillin Sod/ Tazobactam Sod 3.375 gm/Dextrose 115 ml @ 28.75 mls/ hr Q8H IV 04/14/18 02:00 04/23/18 18:59 04/14/18 09:14 28.75 MLS/HR Miscellaneous Information (Consult) 1 ea UD PRN N/A 04/13/18 21:00 05/13/18 20:59 Sodium Chloride 1,000 ml @ 100 mls/hr Q10H IV 04/13/18 23:59 05/13/18 23:58 04/14/18 09:21 100 MLS/HR Tamsulosin HCl (Flomax Cap) 0.4 mg HS PO 04/14/18 21:00 05/14/18 20:59 Insulin Aspart (novoLOG ASPART) SLIDING SCALE If C... ACHS SC 04/14/18 12:00 05/14/18 11:59 04/14/18 12:50 9 UNITS Glucose (Glucose 40% Gel) 15-30 GRAMS 15 GRAMS... UD PRN PO 04/14/18 08:15 05/14/18 08:14 Glucose (Glucose Chew Tab) 4-8 Tablets 4 Tabl... UD PRN PO 04/14/18 08:15 05/14/18 08:14 Dextrose (Dextrose 50% 50ML Syringe) 25-50ML 25ML FOR ... UD PRN IV 04/14/18 08:15 05/14/18 08:14 Glucagon (Glucagon Inj) 1 mg UD PRN SQ 04/14/18 08:15 05/14/18 08:14 Carbohydrates (Carbohydrates For Hypoglycemia) 15-30 GRAMS 15 grams if BSG 54-69... UD PRN PO 04/14/18 08:15 05/14/18 08:14 Objective Vital Signs Date Time Temp Pulse Resp B/P (MAP) Pulse Ox O2 Delivery O2 Flow Rate FiO2 04/14/18 11:20 37.3 73 16 144/67 (92) 91 Room Air 04/14/18 08:01 93 Room Air 04/14/18 07:45 Room Air 04/14/18 07:28 37.6 73 20 158/74 (102) 93 Room Air 04/14/18 05:45 37.1 04/14/18 03:50 37.5 04/14/18 00:15 Room Air 04/13/18 23:48 65 137/67 (90) 04/13/18 23:40 36.4 04/13/18 23:05 Room Air 04/13/18 22:00 60 18 120/54 95 Room Air 04/13/18 21:12 63 19 118/50 96 Room Air 04/13/18 19:25 63 16 130/58 95 Room Air 04/13/18 18:59 81 22 121/54 98 Room Air 04/13/18 17:15 96 Room Air 04/13/18 16:59 36.8 78 22 130/87 96 Room Air Physical Exam General Appearance: WD/WN, no apparent distress Eyes: sclerae normal ENT: hearing grossly normal Neck: supple, no JVD, trachea midline Respiratory/Chest: lungs clear, normal breath sounds, no respiratory distress, no accessory muscle use Cardiovascular: regular rate, rhythm, no gallop, no murmur Abdomen: normal bowel sounds, non tender, soft Extremities: no pedal edema Neurologic/Psychiatric: alert, oriented x 3 Skin: normal color, warm/dry Laboratory Results Last 24 Hours Test 04/13/18 17:15 04/13/18 17:31 04/13/18 18:30 04/14/18 05:26 White Blood Count 8.50 K/uL 7.28 K/uL Red Blood Count 3.93 M/uL 3.54 M/uL Hemoglobin 12.8 g/dL 11.4 g/dL Hematocrit 37.2 % 33.2 % Mean Corpuscular Volume 94.7 fL 93.8 fL Mean Corpuscular Hemoglobin 32.6 pg 32.2 pg Mean Corpuscular Hemoglobin Concent 34.4 g/dl 34.3 g/dl Platelet Count 170 K/uL 148 K/uL Mean Platelet Volume 11.8 fL 11.2 fL Neutrophils (%) (Auto) 74.9 % 79.0 % Lymphocytes (%) (Auto) 10.6 % 10.6 % Monocytes (%) (Auto) 13.8 % 10.0 % Eosinophils (%) (Auto) 0.4 % 0.3 % Basophils (%) (Auto) 0.2 % 0.0 % Neutrophils # (Auto) 6.37 K/uL 5.75 K/uL Lymphocytes # (Auto) 0.90 K/uL 0.77 K/uL Monocytes # (Auto) 1.17 K/uL 0.73 K/uL Eosinophils # (Auto) 0.03 K/uL 0.02 K/uL Basophils # (Auto) 0.02 K/uL 0.00 K/uL RDW Standard Deviation 47.2 fL 46.8 fL RDW Coefficient of Variation 13.6 % 13.6 % Immature Granulocyte % (Auto) 0.1 % 0.1 % Immature Granulocyte # (Auto) 0.01 K/uL 0.01 K/uL Erythrocyte Sedimentation Rate 49 mm/hr Prothrombin Time 12.0 SECONDS Prothromb Time International Ratio 1.1 Activated Partial Thromboplast Time 27.4 SECONDS Partial Thromboplastin Ratio 1.1 Sodium Level 135 mmol/L 136 mmol/L Potassium Level 4.4 mmol/L 4.1 mmol/L Chloride Level 101 mmol/L 107 mmol/L Carbon Dioxide Level 23 mmol/L 23 mmol/L Anion Gap 11.0 mmol/L 6.0 mmol/L Blood Urea Nitrogen 31 mg/dl 26 mg/dl Creatinine 1.52 mg/dl 1.30 mg/dl Est Creatinine Clear Calc Drug Dose 43.4 ml/min 50.7 ml/min Estimated GFR () 51.2 61.9 Estimated GFR (Non- 44.2 53.4 BUN/Creatinine Ratio 20.4 19.7 Random Glucose 146 mg/dl 176 mg/dl Calcium Level 8.9 mg/dl 7.6 mg/dl Phosphorus Level 3.8 mg/dl Magnesium Level 2.0 mg/dl 2.0 mg/dl Total Bilirubin 0.7 mg/dl Aspartate Amino Transf (AST/SGOT) 31 U/L Alanine Aminotransferase (ALT/SGPT) 39 U/L Alkaline Phosphatase 67 U/L Total Creatine Kinase 44 U/L Creatine Kinase MB < 1.0 ng/ml Creatine Kinase MB Ratio Troponin I 0.060 ng/ml 0.075 ng/ml C-Reactive Protein 10.20 mg/dl Total Protein 7.3 gm/dl Albumin 3.1 gm/dl Globulin 4.2 gm/dl Albumin/Globulin Ratio 0.7 Lipase 457 U/L 221 U/L Bedside Lactic Acid Venous 4.29 mmol/L Urine Color DK YELLOW Urine Appearance CLOUDY Urine pH 5.0 Urine Specific [place] 1.020 Urine Protein 2+ Urine Glucose (UA) NEG Urine Ketones TRACE Urine Occult Blood 2+ Urine Nitrite POS Urine Bilirubin NEG Urine Urobilinogen NEG Urine Leukocyte Esterase MODERATE Urine WBC (Auto) >30 /hpf Urine RBC (Auto) 10-30 /hpf Urine Hyaline Casts (Auto) 10-30 /lpf Urine Epithelial Cells (Auto) 5-10 /lpf Urine Bacteria (Auto) 4+ Test 04/14/18 05:27 04/14/18 07:59 04/14/18 12:09 04/14/18 12:58 Prothrombin Time 11.3 SECONDS Prothromb Time International Ratio 1.1 Activated Partial Thromboplast Time 28.6 SECONDS Partial Thromboplastin Ratio 1.1 Lactic Acid Level 1.4 mmol/L Bedside Glucose 175 mg/dl 241 mg/dl Troponin I 0.117 ng/ml Prostate Specific Antigen 0.413 ng/ml Assessment and Plan MDR E. Coli UTI with BPH and Bladder Outlet Obs/Chronic Cystitis/Perinephric Edema/R Nephrolithiasis: - Has had ongoing issues with recurrent E. coli - unfortunately the only oral option is Macrobid which he has been on previously - rather asymptomatic but this could be prostatitis needing longer Abx coverage vs stone contamination - May need to consider treatment with IV Abx given the only oral option is Macrobid - Continue Zosyn and await sensitivities; BCx pending - ASA/Plavix on hold and will discuss with Urology - would like to get this restarted as soon as possible as his stent was only placed in March - Flomax 0.4 mg HS - Urology following - discussing possible lithotripsy as the stone may be harboring bacteria Acute Kidney Injury: RESOLVED - HCTZ, Lisinopril, and Celebrex on hold at this time - may be able to resume in AM - Continue to monitor BMP Elevated Troponins: - EKG obtained as they are trending up but has no symptoms - likely this is from his NANCY and illness as he also had POC lactic of 4 - will continue to trend CAD S/P PCI (March 2018) - He had recent stent to LAD at beginning of March - Atorvastatin 40 mg daily; Coreg 25 mg BID; COPD without Exacerbation: - Contiue Ventolin and Duonebs PRN T2DM: - Hold Metformin and cover with SSI Chronic Pancreatitis: - CT with evidence of this - no acute symptoms DVT Prophylaxis: SCDs Code Status: FULL Disposition: Await cx sensitivities - may need to consider IV Abx given recent Macrobid use and recurrent e. coli Continued [facility] stay due to: multiple IV medications needed Discharge planning: home
[2018-04-14] MEDS: SODIUM CHLORIDE 0.65% NA SOLN 45 ML (OCEAN) NAE SCH (21:16)
[2018-04-14] MEDS: ASPIRIN 81 MG ECTAB PO SCH (21:17)
[2018-04-14] MEDS: TAMSULOSIN HCL 0.4 MG CAP PO SCH (21:17)
[2018-04-15] MEDS: PIPERACILL/TAZOBAC IV 3.375 GM in DEXTROSE 5% 100ML 100 ML IV SCH (02:19)
[2018-04-15] MEDS ORDERED: SODIUM CHLORIDE 0.9% 1000ML 1,000 ML IV SCH (03:00)
[2018-04-15] MEDS ORDERED: NURSING VERBAL MED ORDER ONE ×2 (05:45→12:45)
[2018-04-15] MEDS ORDERED: INSULIN ASPART 100 UNITS/ML 3 ML PEN SC SCH (06:00)
[2018-04-15 06:48] LABS: BASO % 0.1 %; BASO ABS # 0.01 K/uL (0-0.2); EOS % 0.7 %; EOS ABS # 0.05 K/uL (0-0.5); HEMATOCRIT 31.5 % (42-52); HEMOGLOBIN 10.9 g/dL (14.0-18.0); IG# 0.01 K/uL (0.00-0.02); LYMPH % 15.7 %; LYMPH ABS # 1.05 K/uL (1.2-3.4); MEAN CELL VOLUME 94.6 fL (80-100); MEAN CORPUSCULAR HEMOGLOBIN 32.7 pg (25-34); MEAN CORPUSCULAR HGB CONC 34.6 g/dl (32-36); MEAN PLATELET VOLUME 11.1 fL (7.4-10.4); MONO % 11.3 %; MONO ABS # 0.76 K/uL (0.11-0.59); NEUT % 72.1 %; NEUT ABS # 4.82 K/uL (1.4-6.5); PLATELET COUNT 148 K/uL (130-400); RED CELL DISTRIBUTION WIDTH CV 13.8 % (11.5-14.5); RED CELL DISTRIBUTION WIDTH SD 47.8 fL (36.4-46.3)
[2018-04-15 06:58] LABS: INR 1.1 (0.9-1.1); PTT PATIENT 29.5 SECONDS (21.0-31.0)
[2018-04-15 07:18] LABS: CALCIUM 7.8 mg/dl (8.5-10.1); CREATININE 1.12 mg/dl (0.60-1.40); POTASSIUM 3.7 mmol/L (3.5-5.1)
[2018-04-15 07:32] VITALS: BP 136/58; PULSE 66; TEMP 37.2; O2SAT 90
[2018-04-15 08:11] VITALS: O2SAT 90
[2018-04-15] MEDS: ARTIFICIAL TEARS OP SOLN OPB SCH ×2 (08:38→21:00)
[2018-04-15] MEDS: CARVEDILOL 25 MG TAB PO SCH ×2 (08:40→21:33)
[2018-04-15] MEDS: ATORVASTATIN 40 MG TAB PO SCH (08:41)
[2018-04-15] MEDS: CLOPIDOGREL BISULFATE 75 MG TAB PO SCH (08:44)
[2018-04-15] MEDS: FLUTICASONE FUROATE-VILANTEROL 30 PUFFS/INHALER INH INH SCH (08:44)
[2018-04-15] MEDS ORDERED: TIOTROPIUM BROMIDE 5 PUFF/90 MCG INH INH ONE (09:43)
[2018-04-15] MEDS ORDERED: CeleBREX 200 MG CAP PO PRN (09:45)
[2018-04-15] MEDS: ACETAMINOPHEN 325 MG TAB PO PRN (10:02)
[2018-04-15] MEDS: ERTAPENEM IV 1 GM in SODIUM CHLOR 0.9% AD-VAN 50ML 50 ML IV SCH (10:17)
--- NOTE | 2018-04-15 11:41 | Urology Progress Note ---
Progress Note Date of Service Apr 15, 2018. Subjective Pt evaluation today including: conversation w/ patient, conversation w/ family , physical exam, chart review, lab review Pain: denies PO Intake: tolerating Voiding: no voiding problems 77 YO male, BPH, UTI, fever, stable 4mm stone in R upper pole. Patient reports feeling well this morning. Denies flank pain. Denies urinary difficulty - feels that he empties bladder completely, no pushing /straining. CT scan shows good bladder emptying. Remains on IV antibiotics, discussed that this infection will likely need continued IV antibiotics per sensitivity. Constitutional: No fever, No chills Respiratory: No shortness of breath Cardiovascular: No chest pain Abdomen: No pain, No nausea, No vomiting Male : No dysuria, No urinary frequency, No incontinence, No slowing stream, No hematuria Neurologic: No numbness/tingling Objective Vital Signs Date Time Temp Pulse Resp B/P (MAP) Pulse Ox O2 Delivery O2 Flow Rate FiO2 04/15/18 08:11 90 Room Air 04/15/18 07:45 Room Air 04/15/18 07:32 37.2 66 18 136/58 (84) 90 Room Air 04/15/18 00:15 Room Air 04/14/18 23:02 37.7 04/14/18 23:00 38.4 72 16 137/65 (89) 91 Room Air 04/14/18 15:30 Room Air 04/14/18 15:17 36.7 67 16 153/69 (97) 92 Room Air 04/14/18 11:20 37.3 73 16 144/67 (92) 91 Room Air Physical Exam General Appearance: no apparent distress Eyes: normal inspection ENT: hearing grossly normal Neck: no JVD Respiratory/Chest: no respiratory distress, no accessory muscle use Cardiovascular: no JVD Abdomen: non tender, soft Extremities: normal inspection Neurologic/Psychiatric: alert, normal mood/affect, oriented x 3 Skin: normal color Laboratory Results Last 24 Hours Test 04/14/18 12:09 04/14/18 12:58 04/14/18 16:00 04/14/18 17:00 Bedside Glucose 241 mg/dl 167 mg/dl Troponin I 0.117 ng/ml 0.126 ng/ml Prostate Specific Antigen 0.413 ng/ml Test 04/14/18 20:56 8/8/18 21:08 04/15/18 06:04 04/15/18 06:22 Bedside Glucose 155 mg/dl 171 mg/dl Troponin I 0.116 ng/ml White Blood Count 6.70 K/uL Red Blood Count 3.33 M/uL Hemoglobin 10.9 g/dL Hematocrit 31.5 % Mean Corpuscular Volume 94.6 fL Mean Corpuscular Hemoglobin 32.7 pg Mean Corpuscular Hemoglobin Concent 34.6 g/dl Platelet Count 148 K/uL Mean Platelet Volume 11.1 fL Neutrophils (%) (Auto) 72.1 % Lymphocytes (%) (Auto) 15.7 % Monocytes (%) (Auto) 11.3 % Eosinophils (%) (Auto) 0.7 % Basophils (%) (Auto) 0.1 % Neutrophils # (Auto) 4.82 K/uL Lymphocytes # (Auto) 1.05 K/uL Monocytes # (Auto) 0.76 K/uL Eosinophils # (Auto) 0.05 K/uL Basophils # (Auto) 0.01 K/uL RDW Standard Deviation 47.8 fL RDW Coefficient of Variation 13.8 % Immature Granulocyte % (Auto) 0.1 % Immature Granulocyte # (Auto) 0.01 K/uL Prothrombin Time 11.5 SECONDS Prothromb Time International Ratio 1.1 Activated Partial Thromboplast Time 29.5 SECONDS Partial Thromboplastin Ratio 1.1 Sodium Level 141 mmol/L Potassium Level 3.7 mmol/L Chloride Level 111 mmol/L Carbon Dioxide Level 22 mmol/L Anion Gap 8.0 mmol/L Blood Urea Nitrogen 18 mg/dl Creatinine 1.12 mg/dl Est Creatinine Clear Calc Drug Dose 58.8 ml/min Estimated GFR () 74.1 Estimated GFR (Non- 63.9 BUN/Creatinine Ratio 16.3 Random Glucose 157 mg/dl Calcium Level 7.8 mg/dl Magnesium Level 2.0 mg/dl Assessment and Plan 77 YO male, BPH, UTI, fever, stable 4mm stone in R upper pole. UTI, fever Continue IV antibiotics Stable R upper pole stone Pain resolved, will continue to monitor patient's symptoms. Continue IVF, flomax, and strain all urine. BPH Patient states that he feels like his bladder is emptying completely. Good bladder emptying demonstrated on CT. I do not think that bladder scans are necessary at this time, however if patient reports difficulty emptying would advise PVR check PRN. Will continue to follow along with primary service.
[2018-04-15 11:48] VITALS: BP 171/78; PULSE 96; TEMP 36.3; O2SAT 97
[2018-04-15] MEDS: INSULIN ASPART 100 UNITS/ML 3 ML PEN SC SCH ×3 (13:16→21:43)
[2018-04-15 15:52] VITALS: BP 172/82; PULSE 61; TEMP 36.9; O2SAT 93
--- NOTE | 2018-04-15 18:47 | Hospitalist Progress Note ---
Hospitalist Progress Note Date of Service Apr 15, 2018. Subjective Pt evaluation today including: conversation w/ patient, conversation w/ family , physical exam, chart review, lab review, review of studies, review of inpatient medication list Patient seen and evaluated. Was febrile overnight but reports he didn't seem to notice. Has remained afebrile throughout the day. UCx confirmed ESBL E. coli. Placed U/ S Guided peripheral line and changed Abx to Ertapenem for once daily dosing. Patient is concerned about recurrence which is a valid concern. Likely his infection may have not been completely eradicated or this could be re-infection ? Given his sensitivities and recent use of Macrobid there would be no other oral option at this point. Plan is to continue for at least 14 days IV Abx. Home infusions have been set up. Constitutional: No fever, No chills Respiratory: No cough, No shortness of breath Cardiovascular: No chest pain Abdomen: No pain, No nausea, No vomiting, No diarrhea, No constipation Musculoskeletal: No swelling, No calf pain Male : No dysuria Heme: No abnormal bleeding/bruising Skin: No rash Medications Current Inpatient Medications Medications (Trade) Dose Ordered Sig/[place] Route Start Time Stop Time Status Last Admin Dose Admin Ioversol (Optiray 320) 100 ml UD PRN IV 04/13/18 17:45 04/17/18 17:44 Acetaminophen (Tylenol Tab) 650 mg Q4H PRN PO 04/13/18 21:00 05/13/18 20:59 04/15/18 10:02 650 MG Albuterol (Ventolin Hfa Inhaler) 2 puffs Q4 PRN INH 04/13/18 21:00 05/13/18 20:59 Atorvastatin Calcium (Lipitor Tab) 40 mg QAM PO 04/14/18 09:00 05/14/18 08:59 04/15/18 08:41 40 MG Carvedilol (Coreg Tab) 25 mg BID PO 04/13/18 21:00 05/13/18 20:59 04/15/18 08:40 25 MG Albuterol/ Ipratropium (Duoneb) 3 ml QID PRN INH 04/13/18 21:00 05/13/18 20:59 Nitroglycerin (Nitrostat Tab) 0.4 mg UD PRN SL 04/13/18 21:00 05/13/18 20:59 Sodium Chloride ([place] Nasal [place]) 2 sprays HS REJI 04/13/18 21:00 05/13/18 20:59 04/14/18 21:16 2 SPRAYS Artificial Tears (Artificial Tears) 1 drops BID OPB 04/13/18 21:00 05/13/18 20:59 04/15/18 08:38 1 DROPS Ondansetron HCl (Zofran Inj) 4 mg Q6H PRN IV 04/13/18 21:00 05/13/18 20:59 Tamsulosin HCl (Flomax Cap) 0.4 mg HS PO 04/14/18 21:00 05/14/18 20:59 04/14/18 21:17 0.4 MG Glucose (Glucose 40% Gel) 15-30 GRAMS 15 GRAMS... UD PRN PO 04/14/18 08:15 05/14/18 08:14 Glucose (Glucose Chew Tab) 4-8 Tablets 4 Tabl... UD PRN PO 04/14/18 08:15 05/14/18 08:14 Dextrose (Dextrose 50% 50ML Syringe) 25-50ML 25ML FOR ... UD PRN IV 04/14/18 08:15 05/14/18 08:14 Glucagon (Glucagon Inj) 1 mg UD PRN SQ 04/14/18 08:15 05/14/18 08:14 Carbohydrates (Carbohydrates For Hypoglycemia) 15-30 GRAMS 15 grams if BSG 54-69... UD PRN PO 04/14/18 08:15 05/14/18 08:14 Aspirin (Ecotrin Tab) 81 mg QPM PO 04/14/18 21:00 05/14/18 20:59 04/14/18 21:17 81 MG Clopidogrel Bisulfate (plAVix TAB) 75 mg QAM PO 04/15/18 09:00 05/15/18 08:59 04/15/18 08:44 75 MG Fluticasone/ Vilanterol (Breo Ellipta 100-25 Mcg/Inh) 1 puffs QAM INH 04/15/18 09:00 05/15/18 08:59 04/15/18 08:44 1 PUFFS Ertapenem 1 gm/ Sodium Chloride 50 ml @ 120 mls/hr Q24H IV 8/9/18 09:00 04/25/18 08:59 04/15/18 10:17 120 MLS/HR Tiotropium [place] (Spiriva Handihaler Inhaler) 1 puff QAM INH 04/16/18 09:00 05/16/18 08:59 Celecoxib (CeleBREX CAP) 200 mg BID PRN PO 04/15/18 09:45 05/15/18 09:44 Hydrochlorothiazide (Hydrochlorothiazide Tab) 25 mg DAILY PO 04/16/18 09:00 05/16/18 08:59 Lisinopril (Zestril Tab) 20 mg DAILY PO 04/16/18 09:00 05/16/18 08:59 Insulin Aspart (novoLOG ASPART) SLIDING SCALE If C... ACHS SC 04/15/18 17:15 05/15/18 05:59 04/15/18 13:16 4 UNITS Objective Vital Signs Date Time Temp Pulse Resp B/P (MAP) Pulse Ox O2 Delivery O2 Flow Rate FiO2 04/15/18 15:52 36.9 61 18 172/82 (112) 93 04/15/18 11:48 36.3 96 20 171/78 (109) 97 04/15/18 08:11 90 Room Air 04/15/18 07:45 Room Air 04/15/18 07:32 37.2 66 18 136/58 (84) 90 Room Air 04/15/18 00:15 Room Air 04/14/18 23:02 37.7 04/14/18 23:00 38.4 72 16 137/65 (89) 91 Room Air Physical Exam General Appearance: WD/WN, no apparent distress Eyes: sclerae normal ENT: hearing grossly normal Neck: supple, no JVD, trachea midline Respiratory/Chest: lungs clear, normal breath sounds, no respiratory distress, no accessory muscle use Cardiovascular: regular rate, rhythm Abdomen: normal bowel sounds, non tender, soft Extremities: no pedal edema Neurologic/Psychiatric: alert, oriented x 3 Skin: normal color, warm/dry Laboratory Results Last 24 Hours Test 04/14/18 20:56 04/14/18 21:08 04/15/18 06:04 04/15/18 06:22 Bedside Glucose 155 mg/dl 171 mg/dl Troponin I 0.116 ng/ml White Blood Count 6.70 K/uL Red Blood Count 3.33 M/uL Hemoglobin 10.9 g/dL Hematocrit 31.5 % Mean Corpuscular Volume 94.6 fL Mean Corpuscular Hemoglobin 32.7 pg Mean Corpuscular Hemoglobin Concent 34.6 g/dl Platelet Count 148 K/uL Mean Platelet Volume 11.1 fL Neutrophils (%) (Auto) 72.1 % Lymphocytes (%) (Auto) 15.7 % Monocytes (%) (Auto) 11.3 % Eosinophils (%) (Auto) 0.7 % Basophils (%) (Auto) 0.1 % Neutrophils # (Auto) 4.82 K/uL Lymphocytes # (Auto) 1.05 K/uL Monocytes # (Auto) 0.76 K/uL Eosinophils # (Auto) 0.05 K/uL Basophils # (Auto) 0.01 K/uL RDW Standard Deviation 47.8 fL RDW Coefficient of Variation 13.8 % Immature Granulocyte % (Auto) 0.1 % Immature Granulocyte # (Auto) 0.01 K/uL Prothrombin Time 11.5 SECONDS Prothromb Time International Ratio 1.1 Activated Partial Thromboplast Time 29.5 SECONDS Partial Thromboplastin Ratio 1.1 Sodium Level 141 mmol/L Potassium Level 3.7 mmol/L Chloride Level 111 mmol/L Carbon Dioxide Level 22 mmol/L Anion Gap 8.0 mmol/L Blood Urea Nitrogen 18 mg/dl Creatinine 1.12 mg/dl Est Creatinine Clear Calc Drug Dose 58.8 ml/min Estimated GFR () 74.1 Estimated GFR (Non- 63.9 BUN/Creatinine Ratio 16.3 Random Glucose 157 mg/dl Calcium Level 7.8 mg/dl Magnesium Level 2.0 mg/dl Test 04/15/18 12:17 04/15/18 17:00 Bedside Glucose 193 mg/dl 142 mg/dl Assessment and Plan ESBL E. Coli UTI with BPH and Bladder Outlet Obs/Chronic Cystitis/Perinephric Edema/R Nephrolithiasis: - Has had ongoing issues with recurrent E. coli - unfortunately the only oral option is Macrobid which he has been on previously - leaning towards this is from not having complete elimination of the bacteria but could be re-infection. - U/S guided peripheral line placed with IV Ertapenem 1 g daily initiated for ease of transition - plan for treatment at least until 04/26 to complete 14 days - BCx with NGTD - Flomax 0.4 mg HS - Urology following - appreciate assistance - will need outpatient F/U Acute Kidney Injury: RESOLVED - Continue to monitor BMP Elevated Troponins: IMPROVING - Feel this is related to some demand mismatch with infection and NANCY - trended down and no CP - did have recent catheterization with stent placed CAD S/P PCI (March 2018)/Chronic Diastolic CHF (Euvolemic): - He had recent stent to LAD at beginning of March - Atorvastatin 40 mg daily; Coreg 25 mg BID; May resume Lisinopril and HCTZ COPD without Exacerbation: - Continue Ventolin and Duonebs PRN T2DM: - Hold Metformin and cover with SSI Chronic Pancreatitis: - CT with evidence of this - no acute symptoms DVT Prophylaxis: SCDs Code Status: FULL Disposition: Plan for home IV Abx - if remains well likely D/C home tomorrow after Abx infusion Continued [facility] stay due to: multiple IV medications needed Discharge planning: home with home health
[2018-04-15] MEDS: SODIUM CHLORIDE 0.65% NA SOLN 45 ML (OCEAN) NAE SCH (21:32)
[2018-04-15] MEDS: TAMSULOSIN HCL 0.4 MG CAP PO SCH (21:33)
[2018-04-15] MEDS: ASPIRIN 81 MG ECTAB PO SCH (21:33)
[2018-04-15 22:01] VITALS: BP 170/86; PULSE 69
[2018-04-15 23:25] VITALS: BP 127/53; PULSE 73; TEMP 37.4; O2SAT 92
[2018-04-16 07:50] VITALS: BP 172/80; PULSE 62; TEMP 36.8; O2SAT 96
[2018-04-16 07:58] VITALS: O2SAT 96
[2018-04-16] MEDS: CARVEDILOL 25 MG TAB PO SCH (08:13)
[2018-04-16] MEDS: ATORVASTATIN 40 MG TAB PO SCH (08:14)
[2018-04-16] MEDS: CLOPIDOGREL BISULFATE 75 MG TAB PO SCH (08:14)
[2018-04-16] MEDS: FLUTICASONE FUROATE-VILANTEROL 30 PUFFS/INHALER INH INH SCH (08:17)
[2018-04-16 08:18] LABS: BASO % 0.2 %; BASO ABS # 0.01 K/uL (0-0.2); EOS % 2.6 %; EOS ABS # 0.14 K/uL (0-0.5); HEMATOCRIT 31.9 % (42-52); HEMOGLOBIN 10.9 g/dL (14.0-18.0); IG# 0.01 K/uL (0.00-0.02); LYMPH % 15.8 %; LYMPH ABS # 0.86 K/uL (1.2-3.4); MEAN CELL VOLUME 94.4 fL (80-100); MEAN CORPUSCULAR HEMOGLOBIN 32.2 pg (25-34); MEAN CORPUSCULAR HGB CONC 34.2 g/dl (32-36); MEAN PLATELET VOLUME 10.8 fL (7.4-10.4); MONO % 8.4 %; MONO ABS # 0.46 K/uL (0.11-0.59); NEUT % 72.8 %; NEUT ABS # 3.97 K/uL (1.4-6.5); PLATELET COUNT 183 K/uL (130-400); RED CELL DISTRIBUTION WIDTH CV 13.5 % (11.5-14.5); RED CELL DISTRIBUTION WIDTH SD 46.3 fL (36.4-46.3); WHITE BLOOD COUNT 5.45 K/uL (4.8-10.8)
[2018-04-16] MEDS: ARTIFICIAL TEARS OP SOLN OPB SCH (08:18)
[2018-04-16 08:27] LABS: INR 1.1 (0.9-1.1)
[2018-04-16] MEDS: ERTAPENEM IV 1 GM in SODIUM CHLOR 0.9% AD-VAN 50ML 50 ML IV SCH (08:36)
[2018-04-16 08:45] LABS: CREATININE 1.05 mg/dl (0.60-1.40); POTASSIUM 3.8 mmol/L (3.5-5.1)
[2018-04-16] MEDS ORDERED: SPRIN INH ×2 (08:51)
[2018-04-16] MEDS ORDERED: FLM4 PO ×2 (08:53)
[2018-04-16] MEDS ORDERED: HYDROCHLOROTHIAZIDE 25 MG TAB PO SCH (09:00)
[2018-04-16] MEDS ORDERED: TIOTROPIUM BROMIDE 5 PUFF/90 MCG INH INH SCH (09:00)
[2018-04-16] MEDS: INSULIN ASPART 100 UNITS/ML 3 ML PEN SC SCH ×2 (09:00→12:44)
[2018-04-16] MEDS ORDERED: LISINOPRIL 20 MG TAB PO SCH (09:00)
--- NOTE | 2018-04-16 09:04 | Discharge Instructions ---
Discharge Instructions Date of Service Apr 16, 2018. Admission Reason for Admission: Bph With Urinary Obstruction Discharge Discharge Diagnosis / Problem: E. Coli UTI and BPH Discharge Goals Goal(s): Improve function, Increase independence Activity Recommendations Activity Limitations: resume your previous activity . Instructions / Follow-Up Instructions / Follow-Up E. coli Urinary Tract Infection: - Unfortunately this bacteria is resistant to multiple antibiotics and we need to use IV (intravenous) medication. - This bacteria is a common bacteria in the GI tract and can get in the urine. - You will be on Ertapenem as your antibiotic. This is once a day and this will be sent to your home. - You will take this antibiotic until April 26 unless your doctors want to do this longer. - Continue Flomax 0.4 mg daily to help with prostate issues. - Recommend to monitor your sugars and keep them in a good range as high sugars can be food to bacteria and increase risk of infection. - Recommend to call your Urologist for a follow-up appointment Prevention: Some tips can be used to help prevent urinary tract infections. - Drink fluids to keep your urine a pale yellow/clear color - if it gets darker in color that means you need to drink more fluids. - Try to empty your bladder as soon as you feel the urge to urinate. - Some support using Vitamin C and Cranberry juice to help make the urine more acidic to prevent infection. These are safe options to use. - Wear cotton underwear and prevent moisture as bacteria likes moist areas. Cotton underwear does not trap moisture like other fabric materials Current Hospital Diet Patient's current hospital diet: Diabetes Type 2 Diet Discharge Diet Recommended Diet: Diabetes Type 2 Diet Pending Studies Studies pending at discharge: no Laboratory Results Hemoglobin A1c Test 03/03/18 18:30 Range/Units Estimated Average Glucose 166 mg/dl Hemoglobin A1c 7.4 H 4.5-5.6 % Lipid Panel Test 03/04/18 06:28 Range/Units Triglycerides Level 40 0-150 mg/dl Cholesterol Level 87 0-200 mg/dl HDL Cholesterol 46 mg/dl Cholesterol/HDL Ratio 1.9 LDL Cholesterol, Calculated 33 mg/dl Medical Emergencies . Who to Call and When: Medical Emergencies: If at any time you feel your situation is an emergency, please call 911 immediately. . Non-Emergent Contact Non-Emergency issues call your: Primary Care Provider Call Non-Emergent contact if: you have a fever, your pain is concerning you, you have any medication questions . . "Provider Documentation" section prepared by Siobhan Ga. .
[2018-04-16 11:38] VITALS: BP 170/82; PULSE 60; TEMP 36.6; O2SAT 94
[2018-04-16 13:11] VITALS: BP 170/82; PULSE 62; TEMP 36.6; O2SAT 94
--- NOTE | 2018-04-16 18:12 | Discharge Summary ---
Discharge Summary Date of Service Apr 16, 2018. Discharge Summary Admission Date: Apr 13, 2018 at 20:46 Discharge Date: Apr 16, 2018 Discharge Disposition: Home with services Principal Diagnosis: ESBL E. Coli UTI Problems/Secondary Diagnoses: 1. ESBL E. Coli UTI 2. BPH with LUTS 3. R Nephrolithiasis 4. CAD S/P PCI 5. HTN 6. T2DM 7. Acute Kidney Injury 8. COPD Immunizations: Have You Had Influenza Vaccine: Unknown Influenza Vaccine Date: Jun 07, 2007 History of Tetanus Vaccine?: Unknown Tetanus Immunization Date: Jan 03, 2000 History of Pneumococcal: Unknown History of Hepatitis B Vaccine: Unknown Procedures: ABDOMEN AND PELVIS CT WITH IV CONTRAST COMPARISON STUDY: Abdomen and pelvis CT 04/05/2018. FINDINGS: Punctate calcified granuloma seen at the lung bases. The heart remains mildly enlarged. No pneumoperitoneum. No pneumatosis. Severe osteoarthritis within the left hip. There is a right total hip arthroplasty. No fractures within the visualized osseous structures. Small left-sided abdominal wall lipoma. This remains unchanged. The spleen remains enlarged. No hepatic or splenic masses. A few small gallstones. No gallbladder wall thickening. A few punctate calcifications within the pancreas consistent with chronic pancreatitis. No CT evidence for acute pancreatitis. No retroperitoneal lymphadenopathy. Stable 1 cm hyperdense nonenhancing exophytic lesion within the upper pole the left kidney. This likely represents a hyperdense cyst. Stable 4 mm stone within the upper pole of the right kidney. No left renal calculi identified. No hydronephrosis. A few small bilateral peripelvic renal cysts. Bilateral perinephric edema remains unchanged. A 1.1 cm cyst within the upper pole of the left kidney. Subcentimeter hypodense lesion within the lower pole of the left kidney is too small to characterize. Bladder is not well-visualized due to metallic artifact from the right hip prosthesis. There appears to be moderate bladder wall thickening. Trace pelvic free fluid. No bowel wall thickening or obstruction. Normal appendix. IMPRESSION: 1. Right-sided nephrolithiasis. No ureteral stones. No hydronephrosis. 2. Mild bilateral perinephric edema, unchanged. 3. No bowel wall thickening or obstruction. 4. Trace ascites. 5. Moderate bladder wall thickening. Recommend correlation with urinalysis to exclude a cystitis. 6. Cholelithiasis. No gallbladder wall thickening. 7. Additional findings as described above. Consultations: 1. Urology Medication Reconciliation New Medications: Tamsulosin HCl (Tamsulosin HCl) 0.4 Mg Cap 0.4 MG PO HS for 30 Days, #30 CAP Continued Medications: Albuterol Hfa (Ventolin Hfa) 200 Puffs/92856 Mcg Aers 1-2 PUFFS INH Q4 PRN for SOB/Wheezing, #1 INHALER Aspirin Enteric Coated (Ecotrin Or Generic) 81 Mg Tab 81 MG PO QPM, TAB Atorvastatin (Lipitor) 40 Mg Tab 40 MG PO QAM for 30 Days, #30 TAB 6 Refills Carvedilol (Coreg) 25 Mg Tab 1 TAB PO BID for 30 Days, #60 TAB 5 Refills Celecoxib (Celebrex) 200 Mg Cap 200 MG PO BID Clopidogrel Bisulfate (Clopidogrel) 75 Mg Tab 75 MG PO QAM for 30 Days, #30 TAB 11 Refills Fluticasone Furoate-Vilanterol (Breo Ellipta) 1 Inh Inh 1 PUFF INH QAM Hydrochlorothiazide (Hctz) 25 Mg Tab 1 TAB PO DAILY for 30 Days, #30 TAB 5 Refills Ipratropium-Albuterol (Duoneb) 3 Ml Nebu 1 TREATMENT INH QID PRN for SOB/Wheezing, INHA Lisinopril (Prinivil) 20 Mg Tab 20 MG PO DAILY Metformin Hcl (Glucophage) 500 Mg Tab 500 MG PO DAILY, TAB Multiple Vitamins W/ Minerals (Centrum Silver) 1 Chw Chw 1 TAB PO QAM Nitroglycerin (Nitrostat) 0.4 Mg/1 Tab Subl 0.4 MG SL UD PRN for Chest Pain for 30 Days, #30 TAB 3 Refills Polyvinyl Alcohol-Povidone (Op (Refresh) 1 Marcos Marcos 1 DROP OPB BID Saline (Saline Nasal [place]) 0.65 % Spr 1 SPRAY REJI HS Tiotropium [place] (Spiriva Handihaler) 5 Puff/90 Mcg Aerp 1 PUFF INH DAILY Discharge Exam REVIEW OF SYSTEMS Constitutional: No fever, No chills Respiratory: No cough, No shortness of breath Cardiovascular: No chest pain Abdomen: No pain, No nausea, No vomiting, No diarrhea, No constipation Musculoskeletal: No swelling, No calf pain Male : No dysuria Heme: No abnormal bleeding/bruising Skin: No rash PHYSICAL EXAMINATION General Appearance: WD/WN, no apparent distress Eyes: sclerae normal ENT: hearing grossly normal Neck: supple, no JVD, trachea midline Respiratory/Chest: lungs clear, normal breath sounds, no respiratory distress, no accessory muscle use Cardiovascular: regular rate, rhythm Abdomen: normal bowel sounds, non tender, soft Extremities: no pedal edema Neurologic/Psychiatric: alert, oriented x 3 Skin: normal color, warm/dry Hospital Course ADMISSION: The patient is a 77-year-old male presents to the emergency department he reports being told by Dr. Bray office that he has a kidney stone noted 1 week prior to arrival. He also developed a fever to 101.2 at that time, along with back pain, shakiness, generalized fatigue, dizziness and imbalance. The patient reports he that he has been still passing urine, and denies any blood in urine, change in urinary frequency, dysuria or nocturia. He does have an occasional cough productive of clear mucus. HOSPITAL COURSE: ESBL E. Coli UTI with BPH and Bladder Outlet Obs/Chronic Cystitis/Perinephric Edema/R Nephrolithiasis: - Has had ongoing issues with recurrent E. coli - unfortunately the only oral option is Macrobid which he has been on previously - leaning towards this is from not having complete elimination of the bacteria but could be re-infection. - U/S guided peripheral line placed with IV Ertapenem 1 g daily initiated for ease of transition - plan for treatment at least until 04/26 to complete 14 days - Will F/U with Urology on Apr 20 and can determine if antibiotics need to be prolonged - BCx with NGTD - Flomax 0.4 mg HS - Rx sent to home health via home services - Ertapenem 1 g IV daily until 26 April - Urology followed - outpatient F/U - determine for laser lithotripsy (possible stone contamination?) vs TURP Acute Kidney Injury: RESOLVED - Did give Rx for repeat blood work in next 3-4 days as he is on multiple medications that could affect renal function Elevated Troponins: IMPROVING - Feel this is related to some demand mismatch with infection and NANCY - trended down and no CP - did have recent catheterization with stent placed - EKG without ischemic findings - Trops peaked at 0.12 CAD S/P PCI (March 2018)/Chronic Diastolic CHF (Euvolemic): - He had recent stent to LAD at beginning of March - Atorvastatin 40 mg daily; Coreg 25 mg BID; May resume Lisinopril and HCTZ Disposition: Plan for home IV Abx with [facility] Total Time Spent: Greater than 30 minutes This includes examination of the patient, discharge planning, medication reconciliation, and communication with other providers. Discharge Instructions Please refer to the electronic Patient Visit Report (Discharge Instructions) for additional information. Additional Copies To RV. Rao MD; Bassam Bray II., DO
== END 2018-04-16 14:04 | disposition home health service (06) | DRG 694 ==
LOC: C.EDB 16:52 → C.MSN 20:46 → ENRESERV 21:31
PROVIDERS: ADMIT Hospitalist; ATTEND Internal Medicine
DX: N20.0 Calculus of kidney (principal); N17.9 Acute kidney failure, unspecified; N39.0 Urinary tract infection, site not specified; K86.1 Other chronic pancreatitis; N40.1 Benign prostatic hyperplasia with lower urinary tract symptoms; J44.9 Chronic obstructive pulmonary disease, unspecified; I10 Essential (primary) hypertension; Z87.891 Personal history of nicotine dependence; Z88.5 Allergy status to narcotic agent; Z88.8 Allergy status to other drugs, medicaments and biological substances; N30.20 Other chronic cystitis without hematuria; Z96.641 Presence of right artificial hip joint; B96.29 Other Escherichia coli [E. coli] as the cause of diseases classified elsewhere; I25.10 Atherosclerotic heart disease of native coronary artery without angina pectoris; Z95.5 Presence of coronary angioplasty implant and graft; K80.20 Calculus of gallbladder without cholecystitis without obstruction; Z87.440 Personal history of urinary (tract) infections

== ENCOUNTER → 2018-04-20 | Outpatient (CLI) | payer BC ==
[~2018-04-20] MED LIST changes: +ATOR-22 PO; +CETI10TA84 PO; +FLM4 PO; +FLUT1INH INH; +GLC/500 PO; +LISI20TA3 PO; -LISI40TA3 PO; +SPRIN INH
== END | disposition home or self-care (01) ==
LOC: C.PATHSPEC 10:38
PROVIDERS: ATTEND Urology
DX: R31.0 Gross hematuria (principal)

== ENCOUNTER 2018-04-23 18:11 | Emergency (ER) | payer BC ==
[~2018-04-23] VITALS: Ht 177.8 cm; Wt 87.4 kg
[~2018-04-23 18:11] MED LIST changes: -LPT40 PO
[2018-04-23 18:13] VITALS: Ht 177.8 cm; Wt 87.4 kg
--- NOTE | 2018-04-23 19:29 | EMERGENCY ROOM VISIT NOTE ---
History First contact with patient: 18:37 Chief Complaint: OTHER COMPLAINT Stated Complaint: BLEEDING OUT OF IV SITE History of Present Illness The patient is a 77 year old male who presents to the Emergency Room via private vehicle with complaints of "bleeding out of IV site". The patient states that he had an IV placed in his left forearm yesterday and believes it is a PICC line. He notes it is leaking around the dressing. The home health nurse said per patient that she cannot do another dressing as it was done on Thursday. Patient notes that he needs this IV in place until Thursday for further antibiotics which were prescribed by urology. He denies any fever, chills and notes that he would like the IV evaluated. He denies any chest pain, shortness of breath or other complications. No pain. Review of Systems A complete 6-point Review of Systems was discussed with the patient, with pertinent positives and negatives listed in the History of Present Illness. All remaining Review of Systems questions can be considered negative unless otherwise specified. Past Medical/Surgical History Medical Problems: (1) BPH with urinary obstruction (2) COPD (chronic obstructive pulmonary disease) (3) Coronary artery disease (4) Elevated troponin I level (5) Gross hematuria (6) Hypertension (7) Sepsis due to urinary tract infection Surgical Problems: (1) H/O mitral valve repair Family History Diabetes mellitus Gallbladder disease Heart disease Hypertension Lung disease Social History Smoking Status: Never Smoker Alcohol Use: occasionally Drug Use: none Marital Status: Housing Status: lives with significant other Occupation Status: retired Current/Historical Medications Scheduled Aspirin Enteric Coated (Ecotrin Or Generic), 81 MG PO QPM Atorvastatin (Lipitor), 20 MG PO QAM Carvedilol (Coreg), 1 TAB PO BID Celecoxib (Celebrex), 200 MG PO BID Cetirizine (Zyrtec), 10 MG PO QPM Clopidogrel Bisulfate (Clopidogrel), 75 MG PO QAM Fluticasone Furoate-Vilanterol (Breo Ellipta), 1 PUFF INH QAM Hydrochlorothiazide (Hctz), 1 TAB PO DAILY Lisinopril (Prinivil), 20 MG PO QAM Metformin Hcl (Glucophage), 500 MG PO QAM Multiple Vitamins W/ Minerals (Centrum Silver), 1 TAB PO QAM Polyvinyl Alcohol-Povidone (Op (Refresh), 1 DROP OPB BID Saline (Saline Nasal [place]), 1 SPRAY REJI HS Tamsulosin HCl (Tamsulosin HCl), 0.4 MG PO HS Tiotropium [place] (Spiriva Handihaler), 2 PUFF INH QPM Scheduled PRN Albuterol Hfa (Ventolin Hfa), 1-2 PUFFS INH Q4 PRN for SOB/Wheezing Ipratropium-Albuterol (Duoneb), 1 TREATMENT INH QID PRN for SOB/Wheezing Nitroglycerin (Nitrostat), 0.4 MG SL UD PRN for Chest Pain Physical Exam Vital Signs Date Time Temp Pulse Resp B/P (MAP) Pulse Ox O2 Delivery O2 Flow Rate FiO2 04/23/18 18:13 36.7 62 18 146/74 97 Room Air Physical Exam VITAL SIGNS - Vital signs and nursing notes were reviewed. Stable. Afebrile. GENERAL -77-year-old male appearing his stated age who is in no acute distress. Communicates well with provider and answers questions appropriately. SKIN - Without rashes. There is an intact dressing overlying the patient's left forearm. There is a minimal amount of pink/reddish hue to the gauze. No evidence of complete disruption, extravasation around the gauze or infection. EXTREMITIES - No clubbing or peripheral cyanosis. No pretibial edema present. Patient moves extremity well. No evidence of infection. No erythema, edema. He is neurovascularly intact in that region. Medical Decision & Procedures Medical Decision Patient was seen and evaluated as above in room D5. Review was performed of nursing notes and vital signs. After obtaining a thorough history and physical examination the above work up was performed. He presents to us today for evaluation of the IV site. I did have the IV team come down and evaluate this. 1 of the members who evaluated today was present for the placement yesterday. They believe it is appropriate. It flushes well. Patient was very happy about this. He will be discharged home. No other complaints. The patient was educated upon management, educated upon todays findings, educated upon symptoms in which to return, had questions answered prior to discharge, and was discharged home in good condition. Medication list reviewed. Blood pressure found to be elevated likely secondary to situation. In the evaluation and treatment of this patient the following differential diagnoses were entertained: Failed IV site, infection, others. Impression Primary Impression: evaluation of IV site Departure Information Dispostion Home / Self-Care Condition GOOD Referrals RV. Rao MD (PCP) Patient Instructions [facility] Additional Instructions You were seen in the emergency department for evaluation of the IV site. At this time it has been evaluated by the IV team and deemed appropriate. If you experience any difficulties with this please return.
[2018-04-23 20:16] VITALS: BP 146/74; PULSE 62; TEMP 36.7; O2SAT 97
== END 2018-04-23 20:18 | disposition home or self-care (01) ==
LOC: C.EDB 18:12 → C.EDD 20:18
DX: Z45.2 Encounter for adjustment and management of vascular access device (principal); I10 Essential (primary) hypertension; J44.9 Chronic obstructive pulmonary disease, unspecified; N40.1 Benign prostatic hyperplasia with lower urinary tract symptoms; N13.8 Other obstructive and reflux uropathy; Z79.02 Long term (current) use of antithrombotics/antiplatelets; Z79.82 Long term (current) use of aspirin

== ENCOUNTER → 2018-04-28 | Outpatient (CLI) | payer BC | END | disposition home or self-care (01) | LOC: C.PATHSPEC 17:19 | PROVIDERS: ATTEND Urology | DX: R31.0 Gross hematuria (principal) ==

== ENCOUNTER 2020-03-12 09:15 | Inpatient (IN) ==
--- NOTE | 2020-02-18 21:39 | PAT Medication Instructions ---
Medication Instructions Date of Service February 18, 2020 Home Medications Medication Instructions Recorded carvedilol 25 mg tablet 12.5 mg PO BID #180 tab 08/16/19 fluticasone furoate 100 1 inh INHALATION DAILY #28 ea 12/06/19 mcg-vilanterol 25 mcg/dose inhalation powder celecoxib 200 mg capsule 200 mg PO BID #180 cap 01/26/20 aspirin 81 mg PO QPM sodium chloride [Saline Nasal] 1 spray INTRANASAL HS albuterol sulfate [Ventolin HFA] 2 puff INHALATION QID PRN cetirizine [Zyrtec] 10 mg PO QPM nitroglycerin 1 tab SUBLINGUAL UD PRN multivitamin 1 tab PO DAILY carboxymethylcellulose sodium 0.5 % eye drops 1 drops OP PRN carvedilol 25 mg tablet 12.5 mg PO BID fluticasone furoate 100 mcg-vilanterol 25 mcg/dose inhalation powder 1 inh INHALATION DAILY celecoxib 200 mg capsule 200 mg PO BID atorvastatin 20 mg PO QAM diclofenac sodium [Voltaren] 2 gm TOP UD PRN finasteride 5 mg PO QAM furosemide [Lasix] 20 mg PO QAM lisinopril 10 mg PO QAM sitagliptin [Januvia] 50 mg PO QAM tamsulosin 0.4 mg PO QAM tiotropium bromide 2 puff INHALATION QAM Continue as directed nitroglycerin 1 tab SUBLINGUAL UD PRN (if needed) ASK your surgeon for instructions celecoxib 200 mg capsule 200 mg PO BID ASK your prescriber and surgeon aspirin 81 mg PO QPM STOP taking 24 hours before surgery diclofenac sodium [Voltaren] 2 gm TOP UD PRN DO NOT take the morning of surgery multivitamin 1 tab PO DAILY furosemide [Lasix] 20 mg PO QAM lisinopril 10 mg PO QAM sitagliptin [Januvia] 50 mg PO QAM Take morning of surgery With a small sip of water, OTHERWISE NOTHING TO EAT OR DRINK AFTER MIDNIGHT: albuterol sulfate [Ventolin HFA] 2 puff INHALATION QID PRN (use if needed; please bring with you to hospital day of surgery if possible) carboxymethylcellulose sodium 0.5 % eye drops 1 drops OP PRN (if needed) carvedilol 25 mg tablet 12.5 mg PO BID fluticasone furoate 100 mcg-vilanterol 25 mcg/dose inhalation powder 1 inh INHALATION DAILY atorvastatin 20 mg PO QAM finasteride 5 mg PO QAM tamsulosin 0.4 mg PO QAM tiotropium bromide 2 puff INHALATION QAM Take evening before surgery sodium chloride [Saline Nasal] 1 spray INTRANASAL HS albuterol sulfate [Ventolin HFA] 2 puff INHALATION QID PRN (if needed) cetirizine [Zyrtec] 10 mg PO QPM carboxymethylcellulose sodium 0.5 % eye drops 1 drops OP PRN (if needed) carvedilol 25 mg tablet 12.5 mg PO BID Other Notes If you have any questions please call us at [phone] or [phone] or [phone] or [phone]
--- NOTE | 2020-02-21 10:52 | Anesthesiology Consultation ---
Date of Service February 21, 2020 Assessment & Plan (1) Encounter for pre-operative examination: Per PAT assessment on 02/20: Travel screen- Lives in [facility]. No known COVID-19 positive contacts. No current COVID-19 related symptoms. No hx of COVID-19 testing. - Check [facility] AM DOS Chart Review Chart Review: Acceptable Risk for Surgery (pending surgeon-ordered cardiology preop evaluation scheduled [place]23 [place] [facility] and Patient seen in Pre Admission Testing Teaching & Discussion Pre-Anesthesia Teaching/Discussion Notes: Instructed NPO after midnight before surgery,except medications with 15 cc of water. Medication instructions provided according to the PAT guidelines. History Surgery Operation Date: 03/12/20 07:45 Proposed Procedures p L2-S1 Decompression and Fusion, Spinal Cord Monitoring - Dejan Alanis DO Height/Weight Height: 5 ft 10 in Weight: 89.6 kg Allergies Allergy/AdvReac Type Severity Reaction Status Date / Time amlodipine Allergy Unknown PT NOT Verified 02/14/20 09:36 SURE, DIZZINESS? morphine Allergy Unknown ITCHING Verified 02/14/20 09:36 hydrochlorothiazide AdvReac Unknown Fatigued Verified 02/14/20 09:36 tramadol AdvReac Unknown DELIRIUM Verified 02/14/20 09:36 Medications Home Medications Medication Instructions Recorded Confirmed Last Taken aspirin 81 mg PO QPM #0 tab 03/05/12 02/14/20 05/26/19 19:30 sodium chloride [Saline Nasal] 1 spray INTRANASAL HS #0 03/03/18 02/14/20 05/26/19 19:30 albuterol sulfate [Ventolin HFA] 2 puff INHALATION QID PRN #1 03/12/18 02/14/20 05/27/19 07:15 inhaler cetirizine [Zyrtec] 10 mg PO QPM #0 tab 04/22/18 02/14/20 05/26/19 19:30 nitroglycerin 1 tab SUBLINGUAL UD PRN 04/28/18 02/14/20 Unknown multivitamin 1 tab PO DAILY 05/05/19 02/14/20 05/26/19 19:00 carboxymethylcellulose sodium 0.5 1 drops OP PRN ml 06/22/19 02/14/20 Unknown % eye drops carvedilol 25 mg tablet 12.5 mg PO BID #180 tab 08/16/19 02/14/20 Unknown fluticasone furoate 100 1 inh INHALATION DAILY #28 ea 12/06/19 02/14/20 Unknown mcg-vilanterol 25 mcg/dose inhalation powder celecoxib 200 mg capsule 200 mg PO BID #180 cap 01/26/20 02/14/20 Unknown atorvastatin 20 mg PO QAM 02/14/20 02/14/20 Unknown diclofenac sodium [Voltaren] 2 gm TOP UD PRN 02/14/20 02/14/20 Unknown finasteride 5 mg PO QAM 02/14/20 02/14/20 Unknown furosemide [Lasix] 20 mg PO QAM 02/14/20 02/14/20 Unknown lisinopril 10 mg PO QAM 02/14/20 02/14/20 Unknown sitagliptin [Januvia] 50 mg PO QAM 02/14/20 02/14/20 Unknown tamsulosin 0.4 mg PO QAM 02/14/20 02/14/20 Unknown tiotropium bromide 2 puff INHALATION QAM 02/14/20 02/14/20 Unknown Past Medical History Medical History (Updated 02/21/20 @ 15:16 by Sena Emerson) Anxiety Cancer skin cancer (back) s/p excision Chronic back pain CKD (chronic kidney disease) fluctuating creatinines with baseline in the 1.3-1.6 range per chart review COPD (chronic obstructive pulmonary disease) (Chronic) Coronary artery disease REINIER x1 to pLAD (2017) Depression Diabetes mellitus, type 2 NIDDM Enlarged prostate History of atrial fibrillation History of CHF (congestive heart failure) History of kidney stones History of mitral valve disease s/p mitral valve repair (2011) Hypertension (Chronic) Osteoarthritis Pulmonary hypertension Moderate per 08/2019 ECHO Exercise / Class Metabolic Activity III < 4 Walking/Shop/Light housework Past Family History Family History Mother Family history of diabetes mellitus Brother Coronary arteriosclerosis Past Surgical History Surgical History (Updated 02/21/20 @ 11:27 by Sena Emerson) H/O eye surgery L EYE / CYST BEHIND RETINA REMOVED AND TEAR DUCT REMOVED H/O mitral valve repair 2011 AT [place] History of arthroscopy LEFT KNEE History of bronchoscopy History of cardiac cath 03/2018- stent x1 History of cardioversion 2005 History of carpal tunnel release BILAT History of colonoscopy History of discectomy History of esophagogastroduodenoscopy (EGD) History of herniorrhaphy History of nasal septoplasty History of toe surgery R GREAT History of total hip arthroplasty RIGHT S/P trigger finger release HX OF MULTIPLE Past Anesthesia History No Hx of Anesthesia Complications and No Family Hx of Anesthesia Complications History of PONV No Hx of PONV and No Hx of Motion Sickness Social History Smoking Status: Former smoker tobacco type: cigarettes Do You Dip or Chew Tobacco: No Smoking End Date: Quit Hx Alcohol Use: No Alcohol type: beer and wine alcohol intake frequency: 0-2 drinks per day (typically 1 drink/day) Hx Substance Use: No substance use type: does not use Review of Systems Chronic cough r/t COPD/allergies, unchanged. Patient denies chest pain, shortness of breath, fever, chills, reflux, wheezing, palpitations. Physical Exam Vital Signs VITALS BP 143/75 P 63 TEMP 98.0 SP02 97%RA RESP 18 PHYSICAL Full neck and c-spine range of motion. Full TMJ range of motion. TMD 3 finger breaths Mallampati Score 2 Dentition: upper front missing, left lower side missing, several caps Lungs: clear throughout to auscultation Cardiac: regular rate and rhythm, no murmurs noted Spine: normal Carotid arteries: negative bruit Extremities: no edema Testing Laboratory Results 02/21/20 11:16 PT 11.3 Seconds (9.0-12.0) 02/21/20 11:16 INR 1.1 (0.9-1.1) 02/21/20 11:16 APTT 27.5 Seconds (21.0-31.0) 02/21/20 11:16 Urine Color Yellow 02/21/20 11:16 Urine Appearance Clear (Clear) 02/21/20 11:16 Urine pH 6.0 (4.5-7.5) 02/21/20 11:16 Ur Specific [place] 1.015 (1.000-1.030) 02/21/20 11:16 Urine Protein Negative (Negative) 02/21/20 11:16 Urine Glucose (UA) Negative (Negative) 02/21/20 11:16 Urine Ketones Negative (Negative) 02/21/20 11:16 Urine Nitrite Negative (Negative) 02/21/20 11:16 Ur Leukocyte Esterase Negative (Negative) 02/21/20 11:16 Blood Type O Positive 02/21/20 11:16 Antibody Screen NEGATIVE 02/21/20 11:16 02/21/20 SODIUM 142 POTASSIUM 4.4 CHLORIDE 109 CO2 26 BUN 34 CREATININE 1.5 (baseline creatinine fluctuating in the 1.3-1.6 range per chart review) GLUCOSE 135 HGBA1C 6.6% Electrocardiogram Date: 02/21/20 SB at 59bpm. LAD. PRWP, consider anterior PR vs. lead placement vs. LVH. Chest X-Ray Date: 02/21/20 PA and lateral chest radiographs are compared to study dated 09/01/2019 and correlated with chest CT dated 03/03/2018. The heart is enlarged noting atherosclerotic calcification of the thoracic aorta. The pulmonary vasculature is noncongested. Epicardial pacing leads are noted and there is evidence of previous aortic valve surgery. Chronic interstitial thickening is similar to previous. There is no airspace consolidation or pleural effusion. There is no pneumothorax. The skeletal structures are osteopenic. The bony thorax appears intact. Degenerative change is noted throughout the thoracic spine. IMPRESSION: Cardiomegaly with no active disease in the chest. Echocardiogram Date: 09/01/19 LVEF 40-45%. Mild inferior HK. Mild cLVH. Post mitral valve annuloplasty/repair with normal transvalvular gradients and no significant MR. Moderate pulmonary HTN (PASP 55-60mmhg). Compared to prior study on 01/15/18, slight reduction in LV function otherwise no other significant changes per report. Cardiac Catheterization Date: 03/12/18 Severe single vessel CAD (70% pLAD). Mildly elevated left sided filling pressures. Mild pulmonary HTN. Preserved cardiac output. Successful PCI of pLAD with REINIER.
[2020-02-21 12:14] LABS: Basophils # (auto) 0.03 K/uL (0-0.2); Basophils % (auto) 0.4 %; Eosinophils % (auto) 3.8 %; Hematocrit (blood only) 39.5 % (42-52); Hemoglobin 13.2 g/dL (14.0-18.0); Immature Granulocytes # (auto) 0.01 K/uL (0.00-0.02); Immature Granulocytes % (auto) 0.1 %; Lymphocytes # (auto) 1.07 K/uL (1.2-3.4); Lymphocytes % (auto) 13.6 %; Mean Corpuscular Hgb Conc 33.4 g/dL (32-36); Mean Corpuscular Volume 98.8 fL (80-100); Mean Platelet Volume 11.1 fL (7.4-10.4); Monocytes # (auto) 0.92 K/uL (0.11-0.59); Monocytes % (auto) 11.7 %; Neutrophils # (auto) 5.56 K/uL (1.4-6.5); Neutrophils % (auto) 70.4 %; Platelet Count 184 K/uL (130-400); RDW Coefficient of Variation 13.5 % (11.5-14.5); White Blood Count 7.89 K/uL (4.8-10.8)
[2020-02-21 12:17] LABS: Appearance Urine Clear (Clear); Bilirubin Urine Negative (Negative); Blood Urine Negative (Negative); Color Urine Yellow; Glucose Urine UA Negative (Negative); Ketones Urine Negative (Negative); Leukocyte Esterase Urine Negative (Negative); Nitrite Urine Negative (Negative); Protein Urine Negative (Negative); Specific Gravity Urine 1.015 (1.000-1.030); Urobilinogen Urine Negative (Negative)
--- NOTE | 2020-02-21 12:19 | XRay Report ---
TWO VIEW CHEST CLINICAL HISTORY: Preoperative examination. FINDINGS: PA and lateral chest radiographs are compared to study dated 09/01/2019 and correlated with chest CT dated 03/03/2018. The heart is enlarged noting atherosclerotic calcification of the thoracic aorta. The pulmonary vasculature is noncongested. Epicardial pacing leads are noted and there is angela dence of previous aortic valve surgery. Chronic interstitial thickening is similar to previous. There is no airspace consolidation or pleural effusion. There is no pneumothorax. The skeletal structures are osteopenic. The bony thorax appears intact. Degenerative change is noted throughout the thoracic spine IMPRESSION: Cardiomegaly with no active disease in the chest. ACT 112: Negative or not required by law. Electronically signed by: Owen Lockwood M.D. 02/21/2020 12:18 PM
--- NOTE | 2020-02-21 12:21 | Electrocardiogram Report ---
Test Reason : Blood Pressure : / mmHG Vent. Rate : 059 BPM Atrial Rate : 059 BPM P-R Int : 206 ms QRS Dur : 094 ms QT Int : 428 ms P-R-T Axes : 062 -40 036 degrees QTc Int : 423 ms Sinus bradycardia Left axis deviation Poor R wave progression, consider anterior CA vs. lead placement vs. LVH Abnormal ECG When compared with ECG of 14-APR-2018 14:04, Nonspecific T wave abnormality now evident in Inferior leads Confirmed by Oscar Gil ([id number]) on 02/21/2020 12:21:23 PM Referred By: Dejan Alanis Confirmed By:Aleksandr Gil
[2020-02-21 12:25] LABS: INR 1.1 (0.9-1.1); Partial Thromboplastin Time 27.5 Seconds (21.0-31.0); Prothrombin Time 11.3 Seconds (9.0-12.0)
[~2020-03-12 09:15] MED LIST changes: +ACETAMINOPHEN 500 MG TAB PO SCH; -ASPI-319 PO; -ATOR-22 PO; -CARV25TA PO; +CEFAZOLIN 2000MG 2,000 MG/15 ML SYR IV SCH; -CETI10TA84 PO; -CLB200 PO; +CeleBREX 200 MG CAP PO SCH; -FLM4 PO; -FLUT1INH INH; +GABAPENTIN 300 MG CAP PO SCH; -GLC/500 PO; -HYDR25TA4 PO; -IPRA-64 INH; -LISI20TA3 PO; +LR 15ML/HR IV SCH; -MULTCHW PO; -NTRSLP4 SL; -PLV75 PO; -POLYSOL OPB; -SALI-3 NAE; -SPRIN INH; -VNTHFA/IN INH
[2020-03-12] MEDS ORDERED: LIDOCAINE HCL 2% 2 ML VIAL/AMP(20MG/ML) INFIL ONE (10:07)
[2020-03-12] MEDS ORDERED: HYDROmorphone INJ 2 MG/ML SYR/VIAL ONE (10:07)
[2020-03-12] MEDS ORDERED: DEXAMETHASONE SOD INJ 4 MG/ML VIAL ONE (10:07)
[2020-03-12] MEDS ORDERED: LARYING-O-JET KIT (LTA) ONE (10:07)
[2020-03-12] MEDS ORDERED: PROPOFOL IV EMULSION 10 MG/ML 20 ML VIAL IV ONE (10:07)
[2020-03-12] MEDS ORDERED: ONDANSETRON INJ 2 MG/ML 2 ML VIAL ONE (10:07)
[2020-03-12] MEDS ORDERED: ROCURONIUM BROMIDE 10 MG/ML 5 ML VIAL IV ONE ×2 (10:07→12:07)
[2020-03-12] MEDS ORDERED: fentaNYL citrate 100 MCG/2 ML VIAL ONE (10:07)
--- NOTE | 2020-03-12 10:43 | History & Physical Bridge Note ---
Date of Service March 12, 2020 History & Physical Bridge Note I have examined the patient, reviewed the History & Physical and in the interval since the performance of the History & Physical I have noted the following changes of clinical significance: no changes noted
--- NOTE | 2020-03-12 10:45 | History & Physical Report ---
Date of Service March 12, 2020 Assessment & Plan (1) Neurogenic claudication due to lumbar spinal stenosis: L2-S1 decompression fusion Present on Admission?: Yes History of Present Illness Chief Complaint: Back and bilateral leg pain Primary Care Provider: Usha Gaffeny MD This is a 79-year-old male that has consistent back and bilateral leg pain. After failing extensive course of nonoperative care is here for surgical intervention. Allergies Allergy/AdvReac Type Severity Reaction Status Date / Time morphine Allergy Unknown ITCHING Verified 03/12/20 09:47 amlodipine AdvReac Unknown PT NOT Verified 03/12/20 09:47 SURE, DIZZINESS? hydrochlorothiazide AdvReac Unknown Fatigued Verified 03/12/20 09:47 tramadol AdvReac Unknown DELIRIUM Verified 03/12/20 09:47 Home Medications Home Medications Medication Instructions Recorded Confirmed Type aspirin 81 mg PO QPM #0 tab 03/05/12 03/12/20 History sodium chloride [Saline Nasal] 1 spray INTRANASAL HS #0 03/03/18 03/12/20 History albuterol sulfate [Ventolin HFA] 2 puff INHALATION QID PRN #1 03/12/18 03/12/20 History inhaler cetirizine [Zyrtec] 10 mg PO QPM #0 tab 04/22/18 03/12/20 History nitroglycerin 1 tab SUBLINGUAL UD PRN 04/28/18 03/12/20 History multivitamin 1 tab PO DAILY 05/05/19 03/12/20 History carboxymethylcellulose sodium 0.5 1 drops OP PRN ml 06/22/19 03/12/20 History % eye drops carvedilol 25 mg tablet 12.5 mg PO BID #180 tab 08/16/19 03/12/20 Rx celecoxib 200 mg capsule 200 mg PO BID #180 cap 01/26/20 03/12/20 Rx atorvastatin 20 mg PO QAM 02/14/20 03/12/20 History diclofenac sodium [Voltaren] 2 gm TOP UD PRN 02/14/20 03/12/20 History finasteride 5 mg PO QAM 02/14/20 03/12/20 History furosemide [Lasix] 20 mg PO QAM 02/14/20 03/12/20 History lisinopril 10 mg PO QAM 02/14/20 03/12/20 History sitagliptin [Januvia] 50 mg PO QAM 02/14/20 03/12/20 History tamsulosin 0.4 mg PO QAM 02/14/20 03/12/20 History tiotropium bromide 2 puff INHALATION QAM 02/14/20 03/12/20 History fluticasone furoate 100 1 inh INHALATION DAILY 90 Days #90 02/24/20 03/12/20 Rx mcg-vilanterol 25 mcg/dose ea inhalation powder Past Med/Surg History Medical History (Updated 03/12/20 @ 10:45 by Dejan Alanis DO) Anxiety Cancer skin cancer (back) s/p excision Chronic back pain COPD (chronic obstructive pulmonary disease) (Chronic) Coronary artery disease REINIER x1 to pLAD (2017) Diabetes mellitus, type 2 NIDDM Enlarged prostate History of atrial fibrillation History of CHF (congestive heart failure) History of kidney stones History of mitral valve disease s/p mitral valve repair (2011) Hypertension (Chronic) Osteoarthritis Pulmonary hypertension Moderate per 08/2019 ECHO Family History Mother Family history of diabetes mellitus Brother Coronary arteriosclerosis Social History Preferred Language: Wolof Communication Ability: Effective 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 Heart regular rate and rhythm. Lungs clear to auscultation. Results & Data Vital Signs (Past 12 Hours) Vital Signs Temp Pulse Resp BP Pulse Ox 03/12/20 09:51 36.5 C 54 L 20 179/86 H 97
[2020-03-12] MEDS ORDERED: ATROPINE SULFATE 0.1 MG/ML 10ML SYR IV PRN (10:53)
[2020-03-12] MEDS ORDERED: HYDROmorphone INJ 1 MG/ML SYRINGE IV PRN ×2 (10:53→15:36)
[2020-03-12] MEDS ORDERED: ONDANSETRON INJ 2 MG/ML 2 ML VIAL IV PRN ×2 (10:53→15:36)
[2020-03-12] MEDS ORDERED: LABETALOL HCL IV 5 MG/ML 20ML IV PRN (10:53)
[2020-03-12] MEDS ORDERED: BACITRACIN INJ 50,000 UNIT VIAL ONE (10:58)
[2020-03-12] MEDS ORDERED: BUPIVACAINE/EPINEPHRINE 0.25% 1:200,000 30 ML VIAL ONE (10:58)
[2020-03-12] MEDS ORDERED: ePHEDrine sulfate 50 MG/ML AMP ONE (11:44)
[2020-03-12] MEDS ORDERED: GLYCOPYRROLATE 0.2 MG/ML VIAL ONE ×2 (12:01→12:03)
[2020-03-12] MEDS ORDERED: ALBUMIN HUMAN 5% 12.5 GM/250 ML VIAL IV ONE (12:48)
[2020-03-12] MEDS ORDERED: FLOSEAL HEMOSTATIC MATRIX 10ML TOP ONE (13:49)
--- NOTE | 2020-03-12 13:51 | Operative Report ---
Post Operative Report Pre & Post Diagnosis Operation Date: 03/12/20 10:45 Pre-Op Diagnosis: Neurogenic Claudication due to Lumbar Spinal Stenosis Post-Op Diagnosis: Neurogenic Claudication due to Lumbar Spinal Stenosis I identified the patient and participated in the time-out.: Yes Procedure Operation Date: 03/12/20 10:45 Actual Procedures #1 lumbar decompression with bilateral medial facetectomies and foraminotomies L1-2, L2-3, L3-4 and L4-5. #2 posterior spinal fusion L2-L5. #3 placement posterior segmental instrumentation L2-L5. #4 placement of local autograft in the posterior lateral gutters. #5 placement infuse collagen sponge, master graft in the posterior lateral gutters. Surgeon Dejan Alanis, Tool And Equipment Rental Clerk Sayda Gates Estimated Blood Loss 500 Findings Consistent with Post-Op Diagnosis Specimens None Indications This is a 79-year-old male who presents above-mentioned diagnosis after failing stents course of nonoperative care is here for surgical invention. Description of Procedure Patient was met with identified informed consent obtained. Patient was then taken to the operative suite underwent intubation placed in a prone position the Max table on top of the Abraham frame. All bony prominences were well-padded eyes inspected to ensure no external pressure placed upon the. This point the lumbar spine was prepped and draped in normal sterile fashion. Sharp dissection with the assistance of Bovie cautery was performed down to and exposing the lamina and transverse processes of L2 L3-L4-L5 bilaterally. Then performed a complete laminectomy from a caudal cephalad fashion of the L4 L3 L2 and partial laminectomy of L1 including bilateral medial facetectomies and foraminotomies addressing severe spinal stenosis. Pedicle screws were then placed in L2 L3-L4-L5 bilaterally with assistance of fluoroscopy and appropriate size antoinette locked into position. Transverse processes of L to L3-L4-L5 were then burred to subcortical bleeding bone. Infuse collagen sponge master graft local autograft was then placed in the posterior lateral gutters. 15 round TING drain inserted. The incision was then closed with 1 Vicryl the fascia 2-0 Vicryl subcutaneously and 4 Monocryl for final skin closure. Steri-Strip sterile dressings placed. Patient will continue to PACU stable condition. Please note spinal cord monitoring was utilized that the procedure no changes noted. Lastly Sayda Gates was present at the entire procedure involved in patient positioning complex portions of the surgery and final skin closure. I attest to the content of the Intraoperative Record and any orders documented therein. Any exceptions are noted below.
--- NOTE | 2020-03-12 13:58 | Fluoroscopy Report ---
FL lumbar spine 2-3V CLINICAL HISTORY: L2-S1 DECOMPRESSION AND FUSION COMPARISON STUDY: None FLUOROSCOPY TIME: 24 seconds NUMBER OF FLUOROSCOPIC IMAGES: 2 FINDINGS: Image intensifier support for an L2-S1 decompression and fusion IMPRESSION: Image intensifier support for an L2-S1 decompression and fusion. ACT 112: Negative or not required by law. The above report was generated using voice recognition software. It may contain grammatical, syntax or spelling errors. Electronically signed by: Jacobo Padilla M.D. 03/12/2020 1:57 PM
[2020-03-12] MEDS ORDERED: NEOSTIGMINE METHYLSULFATE 1 MG/ML 10ML VIAL ONE (14:16)
[2020-03-12 14:22] LABS: iSTAT Arterial Blood Gas HCO3 23 meg/L (19-24); iSTAT Arterial Blood Gas pCO2 37 mmHg (35-46); iSTAT Arterial Blood Gas pO2 212 mmHg (80-95); iSTAT Carbon Dioxide 24 mmol/L (24-31); iSTAT Hematocrit 31 % (42-52); iSTAT Hemoglobin 10.5 g/dl (14.0-18.0); iSTAT Potassium 5.4 mmol/L (3.3-5.0); iSTAT Sodium 135 mmol/L (135-144)
--- NOTE | 2020-03-12 15:00 | Anesthesiology Progress Note ---
Date of Service March 12, 2020 Anesthesia Post Procedure Vital Signs Vital Signs: Temp Pulse Pulse Resp BP Pulse Ox 03/12/20 14:45 53 L 14 117/70 95 03/12/20 14:35 51 L 14 131/73 98 03/12/20 14:25 51 L 14 141/63 H 98 03/12/20 14:15 52 L 14 112/61 97 03/12/20 14:09 36.4 C L 59 L 14 104/67 95 03/12/20 09:51 36.5 C 54 L 20 179/86 H 97 Transfer of Care Handoff Completed per policy Notes Mental Status: alert / awake / arousable Patient Amnestic to Procedure: Yes Nausea / Vomiting: adequately controlled Pain: adequately controlled Airway Patency, RR, SpO2: stable & adequate BP & HR: stable & adequate Hydration State: stable & adequate Anesthetic Complications: no major complications apparent
[2020-03-12] MEDS ORDERED: ALBUTEROL HFA 8 GM INHALER INH PRN (15:36)
[2020-03-12] MEDS ORDERED: NITROGLYCERIN SL 0.4 MG/TAB TAB SL PRN (15:36)
[2020-03-12] MEDS ORDERED: SOD PHOSPHATE/SOD BIPHOSPHATE ENEMA 132 ML BTL PR PRN (15:36)
[2020-03-12] MEDS ORDERED: DO NOT ADMINISTER PNEUMOCOCCAL VACCINE PRN (15:36)
[2020-03-12] MEDS ORDERED: DO NOT ADMINISTER FLU VACCINE PRN (15:36)
[2020-03-12] MEDS ORDERED: MAGNESIUM HYDROXIDE SUSP 30 ML UDC PO PRN (15:36)
[2020-03-12] MEDS ORDERED: ONDANSETRON 4 MG OD TAB PO PRN (15:36)
[2020-03-12] MEDS ORDERED: PROMETHAZINE HCL 12.5 MG in SODIUM CHLORIDE 0.9% 50 ML IV PRN (15:36)
[2020-03-12] MEDS ORDERED: ACETAMINOPHEN 1,000 MG/100 ML VIAL IV PRN (15:36)
[2020-03-12] MEDS ORDERED: bisacodyL 10 MG SUPP PR PRN (15:36)
[2020-03-12] MEDS ORDERED: FAMOTIDINE 20 MG TAB PO PRN (15:36)
[2020-03-12] MEDS ORDERED: METOCLOPRAMIDE HCL INJ 5 MG/ML 2 ML VIAL IV PRN (15:36)
[2020-03-12] MEDS ORDERED: NALOXONE HCL 0.4 MG/1 ML VIAL/CARP IV PRN (15:36)
[2020-03-12] MEDS ORDERED: HYDROmorphone INJ 0.5 MG/0.5 ML SYR IV PRN (15:36)
[2020-03-12] MEDS ORDERED: LORazepam 0.5 MG/1 ML VIAL IV PRN (15:36)
[2020-03-12] MEDS ORDERED: ALUMINUM/MAGNESIUM SUSP 30 ML UDC PO PRN (15:36)
[2020-03-12] MEDS ORDERED: LORazepam 0.5 MG TAB PO PRN (15:36)
[2020-03-12] MEDS ORDERED: PHARMACY GLYCEMIC MGMT CONSULT PRN (15:55)
[2020-03-12] MEDS ORDERED: ARTIFICIAL TEARS OP PRN (16:15)
[2020-03-12] MEDS ORDERED: GLUCOSE 10 TABS/TUBE PO PRN (16:45)
[2020-03-12] MEDS ORDERED: GLUCAGON FOR INJ 1 MG VIAL IM PRN (16:45)
[2020-03-12] MEDS ORDERED: GLUCOSE 40% GEL 15 GM TUBE PO PRN (16:45)
[2020-03-12] MEDS ORDERED: CARBOHYDRATES FOR HYPOGLYCEMIA PO PRN (16:45)
[2020-03-12] MEDS ORDERED: DEXTROSE 50% 50 ML SYRINGE IV PRN (16:45)
--- NOTE | 2020-03-12 17:49 | Hospitalist Consultation ---
Date of Consultation March 12, 2020 Assessment & Plan (1) Neurogenic claudication due to lumbar spinal stenosis: s/p decompression/fusion 03/12 Pain control, dvt proph per primary Monitor for acute blood loss anemia, surgical EBL 500 ml CBC am (2) Hyperlipidemia: Continue atorvastatin (3) Hypertension: Continue carvedilol, hold lisinopril for hyperkalemia (4) Diabetes mellitus: Type II Well controlled, last A1c 6.6 Pharmacy glycemic management (5) CAD (coronary artery disease): Continue statin, ASA, carvedilol (6) S/P mitral valve repair: (7) Hyperkalemia: Potassium 5.4 this afternoon, will recheck this evening (8) Cardiomyopathy: EF 40% Appears euvolemic Continue furosemide, carvedilol Daily weights, follow I's and Os (9) CKD (chronic kidney disease), stage III: PRP this evening Avoid nephrotoxins where possible Supervising Physician Co-Signing Physician Notes Patient seen and examined with Linda WARE on 03/12/20. I agree with her exam findings, review of systems, assessment and plan. I personally reviewed the lab work and imaging as well. patient doing well prior to surgery, just some pain he denies chest pain, dyspnea - CAD: continue antiplatelet therapy - DM type II: diabetic diet, Novolog SS, monitor for hypoglycemia - Dyslipidemia: statin - Lumbar back pain: plan for decompression with Dr. Alanis thank you for consult, we will follow along with you post operatively History of Present Illness Attending Physician: Dejan Alanis, DO History of Present Illness Mr. Cohen is s/p decompression and fusion today with Dr. Alanis. He is feeli ng well, sitting up in bed and eating a meal. His is at bedside. Allergies Allergy/AdvReac Type Severity Reaction Status Date / Time morphine Allergy Unknown ITCHING Verified 03/12/20 09:47 amlodipine AdvReac Unknown PT NOT Verified 03/12/20 09:47 SURE, DIZZINESS? hydrochlorothiazide AdvReac Unknown Fatigued Verified 03/12/20 09:47 tramadol AdvReac Unknown DELIRIUM Verified 03/12/20 09:47 Home Medications Home Medications Medication Instructions Recorded Confirmed Type aspirin 81 mg PO QPM #0 tab 03/05/12 03/12/20 History sodium chloride [Saline Nasal] 1 spray INTRANASAL HS #0 03/03/18 03/12/20 History albuterol sulfate [Ventolin HFA] 2 puff INHALATION QID PRN #1 03/12/18 03/12/20 History inhaler cetirizine [Zyrtec] 10 mg PO QPM #0 tab 04/22/18 03/12/20 History nitroglycerin 1 tab SUBLINGUAL UD PRN 04/28/18 03/12/20 History multivitamin 1 tab PO DAILY 05/05/19 03/12/20 History carboxymethylcellulose sodium 0.5 1 drops OP PRN ml 06/22/19 03/12/20 History % eye drops carvedilol 25 mg tablet 12.5 mg PO BID #180 tab 08/16/19 03/12/20 Rx celecoxib 200 mg capsule 200 mg PO BID #180 cap 01/26/20 03/12/20 Rx atorvastatin 20 mg PO QAM 02/14/20 03/12/20 History diclofenac sodium [Voltaren] 2 gm TOP UD PRN 02/14/20 03/12/20 History finasteride 5 mg PO QAM 02/14/20 03/12/20 History furosemide [Lasix] 20 mg PO QAM 02/14/20 03/12/20 History lisinopril 10 mg PO QAM 02/14/20 03/12/20 History sitagliptin [Januvia] 50 mg PO QAM 02/14/20 03/12/20 History tamsulosin 0.4 mg PO QAM 02/14/20 03/12/20 History tiotropium bromide 2 puff INHALATION QAM 02/14/20 03/12/20 History fluticasone furoate 100 1 inh INHALATION DAILY 90 Days #90 02/24/20 03/12/20 Rx mcg-vilanterol 25 mcg/dose ea inhalation powder oxycodone 5 mg PO Q6H PRN #20 tab 03/13/20 Rx Patient History Medical History Anxiety Cancer skin cancer (back) s/p excision Chronic back pain COPD (chronic obstructive pulmonary disease) (Chronic) Coronary artery disease REINIER x1 to pLAD (2017) Diabetes mellitus, type 2 NIDDM Enlarged prostate History of atrial fibrillation History of CHF (congestive heart failure) History of kidney stones History of mitral valve disease s/p mitral valve repair (2011) Hypertension (Chronic) Osteoarthritis Pulmonary hypertension Moderate per 08/2019 ECHO Surgical History H/O eye surgery L EYE / CYST BEHIND RETINA REMOVED AND TEAR DUCT REMOVED H/O mitral valve repair 2011 AT [facility] History of arthroscopy LEFT KNEE History of bronchoscopy History of cardiac cath 03/2018- stent x1 History of cardioversion 2005 History of carpal tunnel release BILAT History of colonoscopy History of discectomy History of esophagogastroduodenoscopy (EGD) History of herniorrhaphy History of nasal septoplasty History of toe surgery R GREAT History of total hip arthroplasty RIGHT S/P trigger finger release HX OF MULTIPLE Family History Mother Family history of diabetes mellitus Brother Coronary arteriosclerosis Brother No problems noted. Aunt Myocardial infarction Uncle Myocardial infarction Denies family history of Ovarian cancer Prostate cancer Breast cancer Colorectal cancer Social History (Updated 03/12/20 @ 17:44 by CAHZ Thorntno) Preferred Language: Libyan Communication Ability: Effective Research Physiologist Required: No Beliefs That Will Affect Care: None marital status: Current Living Situation: Spouse current occupational status: retired Other Information That Helps Us Care for You: Yes ( ABLE TO HELP BUT LIMITED D/T AGE) Feels Safe at Home: Yes Smoking Status: Former smoker Tobacco Type: cigarettes ; Do You Dip or Chew Tobacco: No ; Smoking End Date: Quit ; Second Hand Exposure: No ; Hx Alcohol Use: Yes (0-2 drinks per day ) Alcohol type: beer and wine Hx Substance Use: No Seatbelt Use: always Review of Systems Constitutional: no fever, no chills and no body aches Respiratory: no cough, no dyspnea and no wheezing Cardiovascular: no chest pain and no palpitations Gastrointestinal: no abdominal pain, no nausea and no vomiting Genitourinary: no dysuria and no urinary hesitancy Musculoskeletal: no back pain and no joint pain Integumentary: no rash Physical Exam Physical Exam: General: no distress Eyes: normal inspection, PERLL Respiratory: chest non tender, clear to auscultation, normal breath sounds, no respiratory distress, no accessory muscle use Cardiac: regular rate and rhythm, no rub or gallop, no murmur, no edema, no jvd GI/: active bowel sounds, no abd pain or tenderness, soft, non distended Extremities: normal range of motion, normal strength, non tender Neuro/Psych: alert and oriented x 3, normal mood and affect Skin: normal color, dry Results & Data Results & Data ([facility]) Vital Signs (Past 12 Hours) Vital Signs Temp Pulse Pulse Resp BP Pulse Ox 03/12/20 17:35 36.4 C L 69 16 121/63 96 03/12/20 17:19 65 18 130/66 03/12/20 16:16 62 18 126/63 96 03/12/20 15:15 36.8 C 56 L 16 122/69 97 03/12/20 15:05 56 L 16 130/65 97 03/12/20 14:55 52 L 16 135/67 96 03/12/20 14:45 53 L 14 117/70 95 03/12/20 14:35 51 L 14 131/73 98 03/12/20 14:25 51 L 14 141/63 H 98 03/12/20 14:15 52 L 14 112/61 97 03/12/20 14:09 36.4 C L 59 L 14 104/67 95 03/12/20 09:51 36.5 C 54 L 20 179/86 H 97 PG Care Time/CCT Total # of Minutes Spent Total Time Spent with Patient: Total time spent is greater than 50% in coordination of care (as documented) at patient's floor/unit and/or counseling patient: Coding Level of Care Code 61654 Inpt Consult Level 5 Diagnoses Neurogenic claudication due to lumbar spinal stenosis M48.062 Hyperlipidemia E78.5 Hypertension I10 Diabetes mellitus E11.9 CAD (coronary artery disease) I25.10 S/P mitral valve repair Z98.890 Hyperkalemia E87.5 Cardiomyopathy I42.9 CKD (chronic kidney disease), stage III N18.3
[2020-03-12] MEDS: SODIUM CHLORIDE 0.9% 1000ML 1,000 ML IV SCH (17:58)
[2020-03-12] MEDS: INSULIN ASPART 100 UNITS/ML 3 ML PEN SC SCH ×2 (18:04→21:48)
[2020-03-12 19:10] LABS: BUN Creatinine Ratio 20.6 (10-20); Calcium 8.6 mg/dl (8.5-10.1); Creatinine Clr Calc Pharmacy 46.1 ml/min; Est GFR (African American) 51.7; Est GFR (Non-African American) 44.6
[2020-03-12] MEDS ORDERED: INSULIN GLARGINE SOLOSTAR 100 UNITS/ML 3 ML PEN SC STA (20:44)
[2020-03-12] MEDS: CEFAZOLIN 2000MG 2,000 MG/15 ML SYR IV SCH (20:46)
[2020-03-12] MEDS: carvediloL 12.5 MG TAB PO SCH (20:50)
[2020-03-12] MEDS: CETIRIZINE HCL 10 MG TABLET PO SCH (20:55)
[2020-03-12] MEDS: ASPIRIN 81 MG ECTAB PO SCH (20:55)
[2020-03-12] MEDS: ACETAMINOPHEN 500 MG TAB PO PRN (20:56)
[2020-03-12] MEDS: DOCUSATE SODIUM/SENNA 50/8.6MG TAB PO SCH (20:56)
[2020-03-12] MEDS: SODIUM CHLORIDE 0.65% NA SOLN 45 ML (OCEAN) SCH (20:57)
[2020-03-13] MEDS ORDERED: INSULIN ASPART 100 UNITS/ML 3 ML PEN SC ONE (02:00)
[2020-03-13] MEDS: OXYCODONE HCL IR 5 MG TAB (IMMEDIATE RELEASE) PO PRN ×3 (03:17→21:41)
[2020-03-13] MEDS: CEFAZOLIN 2000MG 2,000 MG/15 ML SYR IV SCH (03:17)
[2020-03-13] MEDS: SODIUM CHLORIDE 0.9% 1000ML 1,000 ML IV SCH (03:23)
[2020-03-13 05:38] LABS: Hematocrit (blood only) 31.2 % (42-52); Hemoglobin 10.6 g/dL (14.0-18.0); Immature Granulocytes # (auto) 0.02 K/uL (0.00-0.02); Immature Granulocytes % (auto) 0.1 %; Lymphocytes # (auto) 0.87 K/uL (1.2-3.4); Lymphocytes % (auto) 6.4 %; Mean Corpuscular Hemoglobin 33.4 pg (25-34); Mean Corpuscular Volume 98.4 fL (80-100); Mean Platelet Volume 11.2 fL (7.4-10.4); Monocytes # (auto) 0.64 K/uL (0.11-0.59); Monocytes % (auto) 4.7 %; Neutrophils # (auto) 12.03 K/uL (1.4-6.5); Neutrophils % (auto) 88.8 %; Platelet Count 127 K/uL (130-400); RDW Coefficient of Variation 13.3 % (11.5-14.5); RDW Standard Deviation 47.9 fL (36.4-46.3); Red Blood Count 3.17 M/uL (4.7-6.1); White Blood Count 13.56 K/uL (4.8-10.8)
[2020-03-13] MEDS: POLYETHYLENE (MIRALAX) 17 GM PACK PO SCH ×4 (05:51→23:25)
[2020-03-13] MEDS: ACETAMINOPHEN 500 MG TAB PO PRN ×2 (05:59→18:17)
[2020-03-13 06:00] LABS: BUN Creatinine Ratio 19.4 (10-20); Creatinine Clr Calc Pharmacy 44.9 ml/min; Est GFR (African American) 55.8; Est GFR (Non-African American) 48.1; Potassium 4.8 mmol/L (3.5-5.1)
[2020-03-13] MEDS: TAMSULOSIN HCL 0.4 MG CAP PO SCH (08:25)
[2020-03-13] MEDS: FLUTICASONE/VILANTEROL 100/25MCG 14 PUFFS/INHALER INH SCH (08:25)
[2020-03-13] MEDS: UMECLIDINIUM BROMIDE 62.5MCG/BLISTER 7 PUFFS/INHALER INH SCH (08:25)
[2020-03-13] MEDS: FINASTERIDE 5 MG TAB PO SCH (08:26)
[2020-03-13] MEDS: carvediloL 12.5 MG TAB PO SCH ×2 (08:26→20:52)
[2020-03-13] MEDS: ATORVASTATIN 20 MG TAB PO SCH (08:26)
[2020-03-13] MEDS: SITAGLIPTIN PHOSPHATE 25 MG TAB PO SCH (08:26)
[2020-03-13] MEDS: FUROSEMIDE 20 MG TAB PO SCH (08:27)
[2020-03-13] MEDS: MULTIVITAMIN TAB PO SCH (08:27)
[2020-03-13] MEDS: INSULIN ASPART 100 UNITS/ML 3 ML PEN SC SCH ×4 (08:33→20:54)
--- NOTE | 2020-03-13 11:39 | Orthopedic Progress Note ---
Date of Service March 13, 2020 Assessment & Plan (1) Neurogenic claudication due to lumbar spinal stenosis: At this time we will continue physical therapy monitor his TING output anticipate discharge home the next few days. Present on Admission?: Yes Admission and Anticipated Discharge Date Admission Date: March 12, 2020 Subjective Patient's back pain is controlled leg symptoms markedly improved. Physical Exam Physical Exam: Patient is in a chair at the bedside. Is good strength testing. Appears comfortable. Results & Data ([facility]) Vital Signs (Past 12 Hours) Vital Signs Temp Pulse Pulse Resp BP Pulse Ox 03/13/20 07:39 36.7 C 60 16 122/57 L 94 03/13/20 03:10 36.3 C L 68 16 112/54 L 94
--- NOTE | 2020-03-13 14:16 | Pharmacy Report ---
Glycemic Control Consultation - Date of Service March 13, 2020 - Scope Scope: Glycemic Pharmacist consulted for glycemic control and to write orders per [facility] inpatient glycemic control protocol. - Objective Weight: 75 kg Accjf BSG (last 24hrs): 03/12/20 03/12/20 03/12/20 14:12 17:11 18:01 Glucose 209 H POC Glucose 168 H 218 H 03/12/20 03/13/20 03/13/20 20:22 02:00 05:12 Glucose 129 H POC Glucose 228 H 153 H 03/13/20 03/13/20 03/13/20 08:07 12:22 13:41 Glucose POC Glucose 153 H 226 H 205 H Laboratory Data (last 24hrs): 03/12/20 03/13/20 18:01 05:12 Potassium 5.0 4.8 Carbon Dioxide 24 24 Anion Gap 7.0 6.0 Creatinine 1.49 H 1.40 Est Cr Clr Drug Dosing 46.1 44.9 - Recent Pertinent Medications Outpatient Anti-diabetic Regimen: * Januvia 50 mg qAM * A1c = 6.6 % 02/21/20 The patient is currently receiving: * Basal insulin: Lantus 20 units x1 * Correctional Insulin: Novolog Correction per scale ACHS Goal Range: Low 110 mg/dL - High 150 mg/dL Correction Factor: 20 mg/dL/unit * Prandial insulin: Per carb ratio of 1 unit per 9 grams CHO consumed * Oral Agents: Risk Factors for Insulin Resistance: * Steroids: Dexamethasone 4 mg x1 on 03/12; 8 mg IV starting 03/14 * Recent Surgery: POD #1 * Diet: T2DM - Assessment & Plan Assessment & Plan: ASSESSMENT: * Mr. Cohen is admitted following surgery for lumbar spinal stenosis, POD #1 * Patients BSGs have ranged 138-228 yesterday * Patient received a 20 unit lantus dose x 1 yesterday, fasting this morning acceptable 153 * BSG elevated at lunch, will tighten carb coverage to weight based stress of 3 * Will reassess basal need as patient to begin dexamethasone 8mg IV daily in AM PLAN FOR INPATIENT GLYCEMIC CONTROL: * Basal insulin * Lantus 20 units x 1 at dinner * Bolus insulin * NovoLog per scale ACHS or Q6hrs while NPO * Goal Range: Low 110 mg/dL - High 150 mg/dL * Correction Factor: 20 mg/dL/unit * Nutritional / Prandial insulin per carb ratio of 1 unit per 6 grams CHO consumed * Please note that the plan above was derived based on current level of insulin resistance and hospital stress. These recommendations are appropriate for inpatient admission only. Plan of care upon discharge will need to be reassessed to avoid potential outpatient hypo/hyperglycemia. Thank you.
--- NOTE | 2020-03-13 15:02 | Hospitalist Progress Note ---
Date of Service March 13, 2020 Assessment & Plan (1) Neurogenic claudication due to lumbar spinal stenosis: s/p decompression/fusion 03/12 Pain control, dvt proph per primary Monitor for acute blood loss anemia, surgical EBL 500 ml (2) Hyperlipidemia: Continue atorvastatin (3) Hypertension: Continue carvedilol, lisinopril (4) Diabetes mellitus: Type II Well controlled, last A1c 6.6 Pharmacy glycemic management (5) CAD (coronary artery disease): Continue statin, ASA, carvedilol (6) S/P mitral valve repair: (7) Hyperkalemia: Resolved (8) Cardiomyopathy: EF 40% Appears euvolemic Continue furosemide, carvedilol Daily weights, follow I's and Os (9) CKD (chronic kidney disease), stage III: Kidney function stable Avoid nephrotoxins where possible (10) Acute blood loss anemia: Hgb decreased 3g following surgery Continue to monitor. Thank you for involving us in the care of this patient, medicine will sign off at this time. Admission and Anticipated Discharge Date Admission Date: March 12, 2020 Subjective Mr. Cohen was up and walking the halls today, some pain but overall tolerable. He intermittently has some right sided abdominal pain but it is not reproducible at the time of my assessment. ROS Constitutional: no chills, aches, sweats or fever Respiratory: no sob,cough, sputum, or wheezing Cardiac: no chest pain, palpitations, edema, orthopnea or lightheadedness GI: no nausea, vomiting, diarrhea or constipation : no dysuria or hesitancy Extremities: no joint pain or weakness Skin: no rash All other systems reviewed and negative Physical Exam Physical Exam: General: no distress Eyes: normal inspection, PERLL Respiratory: chest non tender, clear to auscultation, normal breath sounds, no respiratory distress, no accessory muscle use Cardiac: regular rate and rhythm, no rub or gallop, no murmur, no edema, no jvd GI/: active bowel sounds, no abd pain or tenderness, soft, non distended Extremities: normal range of motion, normal strength, non tender Neuro/Psych: alert and oriented x 3, normal mood and affect Skin: normal color, dry Results & Data Results & Data ([facility]) Vital Signs (Past 12 Hours) Vital Signs Temp Pulse Pulse Resp BP Pulse Ox 03/13/20 13:52 60 107/66 03/13/20 07:39 36.7 C 60 16 122/57 L 94 03/13/20 03:10 36.3 C L 68 16 112/54 L 94 PG Care Time/CCT Total # of Minutes Spent Total Time Spent with Patient: Total time spent is greater than 50% in coordination of care (as documented) at patient's floor/unit and/or counseling patient: Coding Level of Care Code 32607 Subseq Hosp Care Lvl 2 Diagnoses Neurogenic claudication due to lumbar spinal stenosis M48.062 Hyperlipidemia E78.5 Hypertension I10 Diabetes mellitus E11.9 CAD (coronary artery disease) I25.10 S/P mitral valve repair Z98.890 Hyperkalemia E87.5 Cardiomyopathy I42.9 CKD (chronic kidney disease), stage III N18.3 Acute blood loss anemia D62
[2020-03-13] MEDS ORDERED: INSULIN GLARGINE SOLOSTAR 100 UNITS/ML 3 ML PEN SC ONE (16:30)
[2020-03-13] MEDS: SODIUM CHLORIDE 0.65% NA SOLN 45 ML (OCEAN) SCH (20:51)
[2020-03-13] MEDS: CETIRIZINE HCL 10 MG TABLET PO SCH (20:51)
[2020-03-13] MEDS: DOCUSATE SODIUM/SENNA 50/8.6MG TAB PO SCH (20:51)
[2020-03-13] MEDS: ASPIRIN 81 MG ECTAB PO SCH (20:52)
[2020-03-14] MEDS: POLYETHYLENE (MIRALAX) 17 GM PACK PO SCH ×3 (05:53→17:41)
[2020-03-14] MEDS: ACETAMINOPHEN 500 MG TAB PO PRN ×2 (05:59→15:32)
[2020-03-14] MEDS: FLUTICASONE/VILANTEROL 100/25MCG 14 PUFFS/INHALER INH SCH (07:27)
[2020-03-14] MEDS: UMECLIDINIUM BROMIDE 62.5MCG/BLISTER 7 PUFFS/INHALER INH SCH (07:28)
[2020-03-14] MEDS: TAMSULOSIN HCL 0.4 MG CAP PO SCH (07:28)
[2020-03-14] MEDS: carvediloL 12.5 MG TAB PO SCH ×2 (07:28→20:40)
[2020-03-14] MEDS: FUROSEMIDE 20 MG TAB PO SCH (07:29)
[2020-03-14] MEDS: SITAGLIPTIN PHOSPHATE 25 MG TAB PO SCH (07:29)
[2020-03-14] MEDS: ATORVASTATIN 20 MG TAB PO SCH (07:30)
[2020-03-14] MEDS: FINASTERIDE 5 MG TAB PO SCH (07:30)
[2020-03-14] MEDS: MULTIVITAMIN TAB PO SCH (07:30)
[2020-03-14] MEDS: INSULIN ASPART 100 UNITS/ML 3 ML PEN SC SCH ×4 (07:34→20:47)
[2020-03-14] MEDS: lisinopriL 10 MG TAB PO SCH (08:06)
[2020-03-14] MEDS: DEXAMETHASONE SOD PHOSPHATE 8 MG in SYRINGE 0 ML IV SCH (08:06)
--- NOTE | 2020-03-14 08:24 | Pharmacy Report ---
Pharmacy Glycemic Short Note 2 - Date of Service March 14, 2020 - Glycemic Short BSG Results (Last 24 hours): 03/13/20 03/13/20 03/13/20 12:22 13:41 17:04 POC Glucose 226 H 205 H 140 H 03/13/20 03/14/20 20:02 06:37 POC Glucose 189 H 129 H OUTPATIENT ANTIDIABETIC REGIMEN: * Januvia 50 mg qAM * A1c = 6.6 % 02/21/20 ASSESSMENT: * CG is a 79 year old male POD #2 s/p L2-L5 decompression and fusion * BSGs ranging 129-226 mg/dL yesterday * Received 52 units of insulin (20 basal, 32 prandial/correctional) + sitagliptin 50 mg daily * Dexamethasone 8 mg IV x 1 ordered for today - will cover with Lantus PLAN FOR INPATIENT GLYCEMIC CONTROL: * Hold outpatient oral diabetes medications * Basal insulin * Lantus 30 units x 1 - given with IV dexamethasone * Bolus insulin * NovoLog per scale ACHS or Q6hrs while NPO * Goal Range: Low 110 mg/dL - High 150 mg/dL * Correction Factor: 20 mg/dL/unit * Nutritional / Prandial insulin per carb ratio of 1 unit per 6 grams CHO consumed PLAN FOR DISCHARGE: * A1c of 6.6% demonstrates good outpatient glycemic control * Reasonable to continue home regimen of sitagliptin 50 mg PO daily
[2020-03-14] MEDS ORDERED: INSULIN GLARGINE SOLOSTAR 100 UNITS/ML 3 ML PEN SC ONE (09:00)
--- NOTE | 2020-03-14 10:05 | Orthopedic Progress Note ---
Date of Service March 14, 2020 Assessment & Plan (1) Neurogenic claudication due to lumbar spinal stenosis: At this time we will continue physical therapy monitor his TING output anticipate discharge home tomorrow. Present on Admission?: Yes Admission and Anticipated Discharge Date Admission Date: March 12, 2020 Subjective Back pain controlled leg symptoms improved. Physical Exam Physical Exam: Patient is good strength testing. Appears comfortable. Results & Data ([facility]) Vital Signs (Past 12 Hours) Vital Signs Temp Pulse Resp BP Pulse Ox 03/14/20 06:25 36.3 C L 57 L 16 123/65 97 03/14/20 02:58 36.8 C 60 16 114/51 L 97 03/13/20 22:54 36.7 C 69 16 113/55 L 94
[2020-03-14] MEDS: SODIUM CHLORIDE 0.65% NA SOLN 45 ML (OCEAN) SCH (20:43)
[2020-03-14] MEDS: ASPIRIN 81 MG ECTAB PO SCH (20:43)
[2020-03-14] MEDS: CETIRIZINE HCL 10 MG TABLET PO SCH (20:44)
[2020-03-14] MEDS: DOCUSATE SODIUM/SENNA 50/8.6MG TAB PO SCH (20:44)
[2020-03-14] MEDS: OXYCODONE HCL IR 5 MG TAB (IMMEDIATE RELEASE) PO PRN (22:52)
[2020-03-15] MEDS: DEXAMETHASONE SOD PHOSPHATE 8 MG in SYRINGE 0 ML IV SCH (07:40)
[2020-03-15] MEDS: UMECLIDINIUM BROMIDE 62.5MCG/BLISTER 7 PUFFS/INHALER INH SCH (07:41)
[2020-03-15] MEDS: FLUTICASONE/VILANTEROL 100/25MCG 14 PUFFS/INHALER INH SCH (07:41)
[2020-03-15] MEDS: FINASTERIDE 5 MG TAB PO SCH (07:42)
[2020-03-15] MEDS: SITAGLIPTIN PHOSPHATE 25 MG TAB PO SCH (07:42)
[2020-03-15] MEDS: MULTIVITAMIN TAB PO SCH (07:43)
[2020-03-15] MEDS: TAMSULOSIN HCL 0.4 MG CAP PO SCH (07:43)
[2020-03-15] MEDS: lisinopriL 10 MG TAB PO SCH (07:43)
[2020-03-15] MEDS: FUROSEMIDE 20 MG TAB PO SCH (07:43)
[2020-03-15] MEDS: ATORVASTATIN 20 MG TAB PO SCH (07:43)
[2020-03-15] MEDS: carvediloL 12.5 MG TAB PO SCH (08:45)
[2020-03-15] MEDS: INSULIN ASPART 100 UNITS/ML 3 ML PEN SC SCH ×2 (08:49→12:25)
[2020-03-15] MEDS ORDERED: INSULIN GLARGINE SOLOSTAR 100 UNITS/ML 3 ML PEN SC SCH (09:00)
--- NOTE | 2020-03-15 10:22 | Discharge Summary ---
Date of Service March 15, 2020 Admission HPI Per Admitting Provider This is a 79-year-old male that has consistent back and bilateral leg pain. After failing extensive course of nonoperative care is here for surgical intervention. Principal Diagnosis Lumbar spinal stenosis with neurogenic claudication Discharge Data Allergies Allergy/AdvReac Type Severity Reaction Status Date / Time morphine Allergy Unknown ITCHING Verified 03/12/20 09:47 amlodipine AdvReac Unknown PT NOT Verified 03/12/20 09:47 SURE, DIZZINESS? hydrochlorothiazide AdvReac Unknown Fatigued Verified 03/12/20 09:47 tramadol AdvReac Unknown DELIRIUM Verified 03/12/20 09:47 Consultations 03/12/20 15:36 Consult Case Management - Discharge Planning Routine 03/12/20 16:00 Consult Hospitalist Routine Procedures Performed Operation Date: 03/12/20 10:45 Actual Procedures p L2-L5 Decompression and Fusion, Spinal Cord Monitoring(Not Applicable) - Dejan Alanis DO Ordered Studies 03/12/20 07:45 FL fluoroscopy <1hr Routine FL lumbar spine 2-3V Routine Hospital Course (1) Neurogenic claudication due to lumbar spinal stenosis: Patient underwent multilevel lumbar decompression fusion tolerated this well was taken to orthopedic floor postoperatively postop day 1 is up and ambulating progressed to postop day #2 on postop day 3 TING drainage decreased probably. Excellent strength testing. Subsequent discharge home. Discharge orders and instructions from the chart for further view. Total Time Total Time Spent Total Time Spent (In Minutes): 20 minutes Discharge Plan Discharge Items Patient Disposition: Home - Self-Care Reason For Visit: LUMBAR SPINAL STENOSIS WO NEUROGENIC CLAUDICATION Discharge Diagnosis: Lumbar spinal stenosis with neurogenic claudication Activity: As commented below Non-emergency contact: Primary Care Provider Call non-emergency contact if: you have any medication questions Follow-up/Referrals: Usha Gaffney MD [Primary Care Provider] - Diet: Regular Addtl Attending Provider Instructions: ACTIVITY RECOMMENDATIONS: SELF CARE INSTRUCTIONS AFTER THORACIC/LUMBAR FUSIONS 1. You may walk to your tolerance. It is good exercise for your legs and back. Expect some back and intermittent leg aches and pains. 2. You may perform "counter-top" level activities (make a sandwich, mikael with a project, etc.). 3. No bending or lifting of more than 10 pounds or back twisting of any nature (roll like a log when turning in bed). 4. You may ride in a car for 20-30 minutes at a time. No driving until after your first visit with your doctor. 5. Frequent changes of position and restricting sitting to 30 minutes at a time will help limit the amount of back spasms and stiffness you may experience. 6. You may discontinue the use of ambulatory aids (cane, crutches, etc.) once your strength and confidence allow. 7. You may employee benefits administrator the shower and let water strike your incision when you arrive home at least once daily. Do not take a tub bath, sit in a hot tub or go into a swimming pool until after your first recheck in the office. SPECIAL CARE INSTRUCTIONS: VERY IMPORTANT TO READ AND REVIEW A. Your surgical incision has been closed with a cosmetic suture under the skin that will dissolve in about 6 weeks. In 14 days, you can use a pair of clean scissors and cut the suture that is left outside of the skin at the ends of your incision. 1. The small skin tapes can be removed 7 days after surgery if they have not fallen off by that point. 2. You may keep the wound open to air as much as possible to promote healing after post-op day number 5 unless told otherwise by your doctor. 3. If you think the wound looks like it is becoming infected (redness or worsening drainage) and/or you are experiencing fever, chill or worsening back pain and muscle spasms, contact the office so that we may evaluate you as soon as possible. B. Complications are uncommon, but please contact us if you have any signs or symptoms of: 1. wound infection (fever higher than 102.5 degrees F, redness, separation of wound, drainage, or increasing pain from the incision) 2. blood clots in legs (pain, swelling, redness and warmth in legs) 3. urinary tract infection (fever higher than 102.5 degrees F, burning upon urination or increased frequency of urination) 4. nerve problems (inability to walk on your toes or heels, numbness, loss of bowel or bladder control) 5. any other symptoms that concern you C. Please call the office at if you have any concerns or questions about your operation or recovery. D. No smoking! Smoking drastically decreases the chance of a solid fusion. E. Do not take any anti-inflammatory medications (Indocin, Advil, Motrin, Aspirin, Naprosyn, etc.) as these may inhibit the chance of a solid fusion. Tylenol is okay to take for pain. MANAGING PAIN AFTER SPINAL SURGERY 1. Narcotic medication is intended for short-term use and will be provided for surgical pain. Surgical pain usually lasts for a period of 4-6 weeks. Narcotic medication includes Percocet, Vicodin, Darvocet, Tylenol #3 or Lortab. 2. Longer-term pain is more appropriately treated with non-narcotic medication such as Tylenol ES. 3. Muscle spasm is not appropriately treated with narcotics. Muscle relaxers such as Soma, Flexeril or Skelaxin can be used along with Tylenol ES. 4. Remember that we all live with some "aches and pains". This is not unusual or uncommon after an injury or as we get older. a. Back pain is expected and may include muscle spasms for 4 to 6 weeks after surgery. The pain should gradually improve. If the pain worsens for no apparent reason, please contact the office. b. Intermittent leg pain may also be experienced and should not be concerned about unless it worsens for no apparent reason. If so, please contact the office. 5. We will provide appropriate medication within the normal guidelines of their prescribed use. We will also be very cautious and aware of potential abuse and extended duration of patients' medication needs. a. Pain medications are for your comfort and to assist with sleep and rest so that the tissue can heal. They are not provided in order to return to normal activity and should not be used through the day. To do so or worsening pain at night can result from ongoing tissue damage and development of tolerance to the prescribed medicine. 6. Please allow 2-3 days to process refills. Prescriptions will not be mailed but must be picked up at the office. FOLLOW UP VISIT: Keep your scheduled follow-up appointment. Any questions, please call the office at . Pending Studies at Discharge: No Stand-Alone Forms: [facility] [employer] [facility], Smoking Cessation Medications and DC Order Prescriptions: New oxycodone 5 mg tablet 5 mg PO Q6H PRN (Reason: pain, severe) Qty: 20 RF: 0 Continued aspirin 81 mg Tablet,Delayed Release (Dr/Ec) 81 mg PO QPM Qty: 0 RF: 0 sodium chloride [Saline Nasal] 0.65 % Aerosol,[place] 1 spray INTRANASAL HS Qty: 0 RF: 0 albuterol sulfate [Ventolin HFA] 90 mcg/actuation Hfa Aerosol Inhaler 2 puff INHALATION QID PRN (Reason: Shortness Of Breath) Qty: 1 RF: 0 cetirizine [Zyrtec] 10 mg Tablet 10 mg PO QPM Qty: 0 RF: 0 carvedilol 25 mg tablet 12.5 mg PO BID Qty: 180 RF: 3 celecoxib [Celebrex] 200 mg capsule 200 mg PO BID Qty: 180 RF: 1 Breo Ellipta 100-25 mcg/dose blister with device 1 inh INHALATION DAILY 90 Days Qty: 90 RF: 3 Refresh Tears 0.5 % drops 1 drops OP PRN RF: 0 nitroglycerin 0.4 mg Tablet, Sublingual 1 tab sublingual UD PRN (Reason: Chest Pain) RF: 0 multivitamin Tablet 1 tab PO DAILY RF: 0 atorvastatin 20 mg tablet 20 mg PO QAM RF: 0 tamsulosin 0.4 mg capsule 0.4 mg PO QAM RF: 0 lisinopril 10 mg tablet 10 mg PO QAM RF: 0 furosemide [Lasix] 20 mg tablet 20 mg PO QAM RF: 0 finasteride 5 mg tablet 5 mg PO QAM RF: 0 Januvia 50 mg tablet 50 mg PO QAM RF: 0 diclofenac sodium [Voltaren] 1 % gel 2 gm TOP UD PRN (Reason: Pain) RF: 0 tiotropium bromide 1.25 mcg/actuation mist 2 puff INHALATION QAM RF: 0 Discharge Orders: Discharge Order (Routine); Ordered 03/15/20 Ordered By: Dejan Alanis Admission Data Admit Date/Time: 03/12/20 14:22 Attending Provider: Dejan Alanis Admit Provider: Dejan Alanis Primary Care Provider: Usha Gaffney V. Other Providers: Terrell Ochoa
== END 2020-03-15 13:29 | disposition home or self-care (01) | DRG 460 ==
LOC: ASU 09:15 → 3E 14:22

== ENCOUNTER 2022-05-14 06:16 | Observation (INO) ==
--- NOTE | 2022-03-17 14:51 | PAT Medication Instructions ---
Medication Instructions Date of Service March 17, 2022 Home Medications Medication Instructions Recorded diclofenac sodium 1 % topical gel 2 g TOP UD PRN #100 g 07/23/20 (Voltaren) nitroglycerin 0.4 mg sublingual 0.4 mg SUBLINGUAL UD PRN #10 tab 07/24/20 tablet amoxicillin 500 mg tablet 2,000 mg PO ONCE #4 tab 05/15/21 carvedilol 25 mg tablet 12.5 mg PO BID #90 tab 08/14/21 tamsulosin 0.4 mg capsule 0.4 mg PO QAM #90 cap 08/14/21 sitagliptin 50 mg tablet (Januvia) 50 mg PO QAM #90 tab 11/12/21 tramadol 50 mg tablet 50 mg PO BID PRN #60 tab 12/25/21 aspirin 81 mg tablet,delayed release 81 mg PO QPM sodium chloride 0.65 % nasal spray aerosol (Saline Nasal) 1 spray INTRANASAL HS cetirizine 10 mg tablet (Zyrtec) 10 mg PO QPM multivitamin 1 tab PO HS carboxymethylcellulose sodium 0.5 % eye drops (Refresh Tears) 1 drops OP PRN diclofenac sodium 1 % topical gel (Voltaren) 2 g TOP UD PRN nitroglycerin 0.4 mg sublingual tablet 0.4 mg SUBLINGUAL UD PRN calcipotriene 0.005 % topical cream 1 applic TOPICAL DAILY PRN amoxicillin 500 mg tablet 2,000 mg PO ONCE carvedilol 25 mg tablet 12.5 mg PO BID tamsulosin 0.4 mg capsule 0.4 mg PO QAM sitagliptin 50 mg tablet (Januvia) 50 mg PO QAM lisinopril 10 mg tablet 5 mg PO QAM tramadol 50 mg tablet 50 mg PO BID PRN atorvastatin 20 mg tablet 20 mg PO HS famotidine 20 mg tablet (Pepcid AC) 20 mg PO HS PRN finasteride 5 mg tablet 5 mg PO QAM furosemide 20 mg tablet (Lasix) 40 mg PO BID PRN Continue as directed carboxymethylcellulose sodium 0.5 % eye drops (Refresh Tears) 1 drops OP PRN(if needed) nitroglycerin 0.4 mg sublingual tablet 0.4 mg SUBLINGUAL UD PRN(if needed) amoxicillin 500 mg tablet 2,000 mg PO ONCE ASK your surgeon for instructions diclofenac sodium 1 % topical gel (Voltaren) 2 g TOP UD PRN STOP taking 24 hours before surgery calcipotriene 0.005 % topical cream 1 applic TOPICAL DAILY PRN DO NOT take the morning of surgery sitagliptin 50 mg tablet (Januvia) 50 mg PO QAM lisinopril 10 mg tablet 5 mg PO QAM furosemide 20 mg tablet (Lasix) 40 mg PO BID PRN Take morning of surgery With a small sip of water, OTHERWISE NOTHING TO EAT OR DRINK AFTER MIDNIGHT: carvedilol 25 mg tablet 12.5 mg PO BID tamsulosin 0.4 mg capsule 0.4 mg PO QAM tramadol 50 mg tablet 50 mg PO BID PRN(if needed) finasteride 5 mg tablet 5 mg PO QAM Take evening before surgery aspirin 81 mg tablet,delayed release 81 mg PO QPM (unless directed otherwise by surgeon) sodium chloride 0.65 % nasal spray aerosol (Saline Nasal) 1 spray INTRANASAL HS cetirizine 10 mg tablet (Zyrtec) 10 mg PO QPM multivitamin 1 tab PO HS carvedilol 25 mg tablet 12.5 mg PO BID tramadol 50 mg tablet 50 mg PO BID PRN(if needed) atorvastatin 20 mg tablet 20 mg PO HS famotidine 20 mg tablet (Pepcid AC) 20 mg PO HS PRN(if needed) furosemide 20 mg tablet (Lasix) 40 mg PO BID PRN(if needed) Other Notes If you have any questions please call us at [phone] or [phone] or [phone] or [phone]
--- NOTE | 2022-03-20 11:07 | Anesthesiology Consultation ---
Date of Service March 20, 2022 Assessment & Plan (1) Encounter for pre-operative examination: Chart Review Chart Review: Patient seen in Pre Admission Testing -Surgeon's office informed that patient will need rescheduled - when patient rescheduled- will need cardio clearance/possible stress testing (will leave to cardiology discretion) Initially scheduled with cardio for clearance 03/31/22. Pt noted to be in atrial flutter at PAT exam 03/20/22- has had increased SOB and lightheadedness recently. Pt rate controlled. No current symptoms. Hx of atrial fibrillation but not recent documentation- has not been on AC x years per patient. "Hx of atrial dysrhythmias" per last cardio note. Did discuss with [facility] Cardio office- Genoveva Antonio will see patient for acute visit 03/20/22 Per cardio visit 03/20/22= CAD- s/p PCI with REINIER to pLAD (patent on 2019 cath), jailed D1 with nonobstructive disease. Severe MR- s/p MV repair in 2011- stable MV repair function on last ECHO. HTN. Hx of atrial dysrhythmias. Pulm HTN- mild on RHC in 2018. Atrial flutter. Pt found to be in atrial flutter at PAT appt- remote hx of atrial flutter- has not been chronically anticoagulated. Unclear how long he has been in atrial flutter but suspect several weeks given duration of DINH and fatigue. HR adequately controlled. "Start anticoagulation with Eliquis 5 mg bid, samples provided today. Continue current carvedilol. Recommend electrical cardioversion. Patient will need to be either be anticoagulated for 4 weeks prior to cardioversion or undergo BOB guided cardioversion. After cardioversion will need to remain on anticoagulation uninterrupted for minimum of 4 weeks. Therefore, we will need to delay his hip replacement. He will contact Dr. Tejeda's office, if surgery can be rescheduled for late April or early May we will schedule him for BOB guided cardioversion. Patient is hoping to have hip replacement done prior to leaving for [place] in July. Would defer stress testing while he is atrial flutter." - Check BSG AM DOS Per PAT appt on 03/20/22, patient denies any recent travel or large group activities. No known Covid positive exposures or Covid related symptoms. No known Covid infection in the past 90 days. Pt is vaccinated for Covid. Preop Covid testing scheduled 04/01/22 = will await results. Educated on importance of self quarantining, social distancing and wearing mask in public for the patient one week prior to surgery and after Covid testing done Teaching & Discussion Pre-Anesthesia Teaching/Discussion Notes: Instructed NPO after midnight before surgery,except medications with 15 cc of water. Medication instructions provided according to the PAT guidelines. History Surgery Operation Date: 04/03/22 08:50 Proposed Procedures p Left Total Hip Arthroplasty - Fidel Tejeda MD Height/Weight Height: 5 ft 8 in Weight: 81.3 kg Allergies Allergy/AdvReac Type Severity Reaction Status Date / Time morphine Allergy Unknown ITCHING Verified 03/20/22 12:55 amlodipine AdvReac Unknown PT NOT Verified 03/20/22 12:55 SURE, DIZZINESS? hydrochlorothiazide AdvReac Unknown Fatigued Verified 03/20/22 12:55 tramadol AdvReac Unknown DELIRIUM Verified 03/20/22 12:55 Additional Notes: Currently taking Tramadol without issues Medications Home Medications Medication Instructions Recorded Confirmed Last Taken aspirin 81 mg tablet,delayed 81 mg PO QPM #0 tabs 03/05/12 03/20/22 03/11/20 20:00 release sodium chloride 0.65 % nasal spray 1 spray intranasal HS ##0 03/03/18 03/20/22 03/11/20 20:00 aerosol (Saline Nasal) cetirizine 10 mg tablet (Zyrtec) 10 mg PO QPM #0 tabs 04/22/18 03/20/22 03/11/20 20:00 multivitamin 1 tab PO HS 05/05/19 03/20/22 03/11/20 20:00 carboxymethylcellulose sodium 0.5 1 drops ophthalmic (eye) PRN 06/22/19 03/20/22 03/11/20 20:00 % eye drops (Refresh Tears) diclofenac sodium 1 % topical gel 2 g topical UD PRN Pain #100 grams 07/23/20 03/20/22 Unknown (Voltaren) nitroglycerin 0.4 mg sublingual 0.4 mg sublingual UD PRN Chest 07/24/20 03/20/22 Unknown tablet Pain #10 tabs calcipotriene 0.005 % topical cream 1 applic topical DAILY PRN Itching 12/14/20 03/20/22 Unknown amoxicillin 500 mg tablet 2,000 mg PO ONCE #4 tabs 05/15/21 03/20/22 Unknown carvedilol 25 mg tablet 12.5 mg PO BID 0 days #90 tabs 08/14/21 03/20/22 Unknown tamsulosin 0.4 mg capsule 0.4 mg PO QAM #90 caps 08/14/21 03/20/22 Unknown sitagliptin 50 mg tablet (Januvia) 50 mg PO QAM #90 tabs 11/12/21 03/20/22 Unkn own lisinopril 10 mg tablet 5 mg PO QAM 12/25/21 03/20/22 Unknown tramadol 50 mg tablet 50 mg PO BID PRN pain #60 tabs 12/25/21 03/20/22 Unknown atorvastatin 20 mg tablet 20 mg PO HS 03/17/22 03/20/22 Unknown famotidine 20 mg tablet (Pepcid AC) 20 mg PO HS PRN Acid Reflux 03/17/22 03/20/22 Unknown finasteride 5 mg tablet 5 mg PO QAM 03/17/22 03/20/22 Unknown furosemide 20 mg tablet (Lasix) 40 mg PO BID PRN weight gain 03/17/22 03/20/22 Unknown apixaban 5 mg tablet (Eliquis) 5 mg PO BID #60 tabs 03/20/22 03/20/22 Unknown Past Medical History Medical History (Updated 03/21/22 @ 08:32 by Samaria Alanis, PA-C) Anxiety Cancer Skin cancer (back) s/p excision CHF (congestive heart failure) EF 40% on 11/2021 ECHO Chronic back pain COPD (chronic obstructive pulmonary disease) DINH- unsure if related to deconditioning secondary to hip issues vs cardiac vs lung issues Coronary artery disease REINIER x1 to pLAD (2018). Patent on 2019 cath, jailed D1 with nonobstructive disease Diabetes mellitus, type 2 NIDDM Hgb A1 C 6.6 on 01/07/22 Elevated serum creatinine Creat ranges from 1.5-2 since 2019 Enlarged prostate History of atrial fibrillation F/U DR DALLAS ALBERTO No AC- (no recent issues per patient) AC d/c'ed by cardio per patient Pt noted to be in atrial flutter at [facility] appt- following up with cardio History of kidney stones Has current kidney stone noted on u/s but not symptomatic /obstructive History of mitral valve disease S/p mitral valve repair (2011) (secondary to severe MR) Hyperlipidemia Hypertension Pulmonary hypertension Mild on 2018 RHC Secondary to lung disease Exercise / Class Metabolic Activity III < 4 Walking/Shop/Light housework (one flight of stairs- mild SOB, no chest pain ) Past Family History Family History Mother Family history of diabetes mellitus Brother Coronary arteriosclerosis Brother No problems noted. Aunt Myocardial infarction Family history of diabetes mellitus Uncle Myocardial infarction Family history of diabetes mellitus Denies family history of Ovarian cancer Prostate cancer Breast cancer Colorectal cancer Past Surgical History Surgical History H/O eye surgery L EYE / CYST BEHIND RETINA REMOVED AND TEAR DUCT REMOVED H/O mitral valve repair 2011 AT [place] History of anesthesia reaction DISORIENTATION S/P BACK SURGERY 2019 [facility] History of arthroscopy LEFT KNEE History of bronchoscopy History of cardiac cath 03/2018- stent x1 2019 History of cardioversion 2006 History of carpal tunnel release BILAT History of cataract surgery R/L History of colonoscopy History of discectomy History of esophagogastroduodenoscopy (EGD) History of herniorrhaphy History of nasal septoplasty History of right hip replacement History of toe surgery R GREAT History of total hip arthroplasty RIGHT Hx of spinal fusion S/P trigger finger release HX OF MULTIPLE Past Anesthesia History No Hx of Anesthesia Complications (with exception to back surgery in 2019 - had post op confusion ) and No Family Hx of Anesthesia Complications History of PONV No Hx of PONV and No Hx of Motion Sickness Social History Smoking Status: Former smoker tobacco type: cigarettes Do You Dip or Chew Tobacco: No Smoking End Date: QUIT 1975 Hx Alcohol Use: Yes Alcohol type: beer and wine alcohol intake frequency: 0-2 drinks per day (1-2 drinks/day) Hx Substance Use: No substance use type: does not use Review of Systems Hx of snoring- hx of sleep study- no EDWAR. Snoring resolved since nasal surgery Hx of blood transfusion >10 years ago s/p surgery Patient denies chest pain, shortness of breath at rest, reflux, cough, wheezing, palpitations. No hx of seizures, stroke, [place]. No hx of blood clots Physical Exam Vital Signs VITALS BP 121/74 P 57 TEMP 97.9 SP02 99% RESP 16 Constitutional no acute distress ENMT Mouth: no TMJ clicking Thyromental Distance: > or= 3.5 Finger Breadths (3.5) Mallampati Class: I Mouth / Teeth: 1. Missing Caps on side teeth Missing bottom left molar Neck + limited neck extension (mild to moderate ) Respiratory normal respiratory effort; no respiratory distress Auscultation: lungs clear to auscultation bilaterally; no wheezes Cardiovascular Heart Sounds: no murmur Vessels: no carotid bruit Irregular rhythm Musculoskeletal Spine: + pain with cervical ROM (mild ) Extremities: extremities normal to inspection Psychiatric Orientation: alert Lab Results Anesthesia Preop Results Results Anesthesia Widget: WBC 7.84 K/ul (4.8-10.8) 03/20/22 Hgb 13.4 g/dl (14.0-18.0) L 03/20/22 Hct 39.8 % (40.1-51.0) L 03/20/22 Plt 162 K/uL (130-400) 03/20/22 Na 140 mmol/L (136-145) 03/20/22 K 4.8 mmol/L (3.5-5.1) 03/20/22 Cl 104 mmol/L (98-107) 03/20/22 CO2 29 mmol/L (21-32) 03/20/22 BUN 42 mg/dl (6-23) H 03/20/22 Creat 1.81 mg/dl (0.6-1.4) H 03/20/22 Glucose Level 126 mg/dl (70-99(Fasting)) H 03/20/22 PT 12.0 Seconds (9.0-12.0) 03/20/22 PTT 27.5 Seconds (21.0-31.0) 03/20/22 INR 1.1 (0.9-1.1) 03/20/22 Blood Type O Positive 03/20/22 Antibody Screen NEGATIVE 03/20/22 Testing Laboratory Results Elevated creatinine chronic and stable from previous 01/07/22= HGB A1C: 6.6 Electrocardiogram Date: 03/20/22 Atrial flutter with variable AV block at 77 bpm Left axis deviation Possible inferior infarct, age undetermined When compared to EKG from February 21, 2020atrial flutter has replaced sinus rhythm, QT is lengthened per cardio. Chest X-Ray Date: 03/20/22 FINDINGS: PA and lateral chest radiographs are compared to study dated 02/21/2020 and correlated with chest CT dated 03/03/2018. There is evidence of previous cardiac valve surgery. Epicardial pacing leads are noted. The heart is enlarged noting atherosclerotic calcification of the thoracic aorta. The pulmonary vascul ature is noncongested. Emphysema and chronic interstitial thickening is similar to previous. There is bibasilar scarring/atelectasis. No airspace consolidation or pleural effusion is identified. There is no pneumothorax. The skeletal structures are osteopenic. The bony thorax appears intact spondylotic change is noted in the thoracic spine. Fusion hardware is partially seen in the lumbar spine. IMPRESSION: Cardiomegaly and emphysema with no active disease in the chest. Echocardiogram Date: 11/13/21 EF: 40% LV Function: dysfunctional Other Findings: + LVH (Moderate/concentric) Ventricular systolic function is mildly reduced. Mild global hypokinesis of left ventricle. Left and right atrium mildly dilated Right ventricle borderline dilated. RV systolic function is mildly reduced. Annuloplasty ring is noted in mitral position. Compared with study from 07/30/2020, no significant change. Stress Test Date: 07/30/20 Type: DSE Abnormal dobutamine stress ECHO. Inferior wall severely hypokinetic at peak dobutamine. Mild resting inferior hypokinesis improved with low-dose dobutamine. Negative stress EKG at 85% MPHR. Resting LVEF 45-50% with mild inferior hypokinesis. Grade 2 DD. No significant MR post mitral valve repair. Mild pulmonary hypertension. Cardiac Catheterization Date: 08/10/20 Findings: LM -calcified, 20% ostial, angulated takeoff LAD -medium caliber vessel, widely patent proximal LAD stent, distal vessel wraps around apex. Jailed first diagonal with hazy, 60 to 70% ostial stenosis and SARAH-3 flow. Circumflex -small caliber, no significant disease RCA -dominant, large caliber vessel, no significant disease Recommendations: Stress test represents a false positive. Consider trial of additional antianginal therapy for diagonal disease. Continued ASCVD risk factor modification
--- NOTE | 2022-04-27 14:06 | History and Physical Report ---
DATE OF ADMISSION: 05/01/2022 CHIEF COMPLAINT: Left hip pain. HISTORY OF PRESENT ILLNESS: An 82-year-old gentleman well known to me from a previous right hip repl acement done 13 years ago. Over the past couple of years, he has developed increased pain and discom fort in his left leg and hip. He did undergo back surgery by Dr. Alanis in 2019, which helped him in some ways, but not others. His hip pain has progressed. He has got groin and thigh pain. It radia amandeep down to his knee. He has had injections, which helped him significantly, but only for a short pe riod of time. He would really like to have his hip replaced. He has recently gone through a cardiac evaluation and pending final clearance. Denies any significant chest pain. PAST MEDICAL HISTORY: 1. Coronary artery disease with history of atrial flutter, status post stent placement and defibrill ation. 2. Hypertension. 3. Kidney stones. PAST SURGICAL HISTORY: Includes, 1. Right total hip replacement done on 01/12/2009. 2. Back surgery done by Dr. Alanis 3 years ago. 3. Knee arthroscopy. 4. Cardiac stent placement. 5. Carpal tunnel release. 6. Cataract surgery. 7. Herniorrhaphy. 8. Trigger finger release. ALLERGIES: MORPHINE, WHICH CAUSES ITCHING. ALSO, DESCRIBES ALLERGIES TO AMLODIPINE, HYDROCHLOROTHIA ZIDE, TRAMADOL, WHICH CAUSED DELIRIUM. MEDICINES: As per the EMR. SOCIAL HISTORY: An 82-year-old male. He is . Retired. He is a previous maintenance custodian. Does not smoke currently. FAMILY HISTORY: Noncontributory. REVIEW OF SYSTEMS: Negative for diabetes. He does have a significant heart history, but is asymptom atic. Stress test and Lexiscan stress test are still pending. No history of DVT or PE. PHYSICAL EXAMINATION: GENERAL: Shows a pleasant, elderly male. Looks to be in pretty good health. HEENT: Benign. NECK: Supple. No lymphadenopathy. LUNGS: Clear to auscultation. HEART: Has a regular rate and rhythm. ABDOMEN: Soft, nontender, nondistended. EXTREMITIES: Grossly neurovascularly intact except as follows: Examination of the left hip revealed patient walks with an antalgic gait. Leg lengths appear pretty equal. He has got pain with any typ e of hip motion. Internal rotation is limited to neutral at best. Negative straight leg raise. X-RAYS: X-rays of the left hip were reviewed. It shows advanced left hip arthritis. He has got com plete loss of his joint space fairly circumferentially. He has got cystic change in the femoral head . He does have evidence of previous spinal fusion. Right hip replacement looks to be in good positi on. ASSESSMENT: An 82-year-old male with multiple medical comorbidities including significant underlying cardiac disease, status post right hip replacement with advanced left hip arthritis. He has failed conservative measures. He would like to have his hip fixed. PLAN: Pending cardiac clearance, we will proceed with a left hip replacement. The risks and benefit s of this procedure were explained to the patient and include but not limited to DVT, PE, , infe ction, neurological injury, vascular injury, bleeding problem, pain, limited range of motion, stiffne ss, failure to relieve symptoms, incomplete relief of symptoms, need for further surgery in the futur e, fracture, leg length inequality, nerve palsy, etc. The patient understands and desires to proceed . Informed consent was obtained. We did have a recent cardioversion back in sinus rhythm. We will need to check his stress test and katrina riggs sure he is okay from that standpoint and gets a final cardiac clearance. As far as discharge swetha ns, he is planning to be discharged to home using [facility] program. Job ID: [id number]
--- NOTE | 2022-04-30 10:14 | Anesthesiology Consultation ---
Date of Service April 30, 2022 Assessment & Plan (1) Encounter for pre-operative examination: - COVID screening: Per assessment on 03/17: No known COVID-19 positive contacts or current COVID-19 related symptoms. Travel screen negative. Patient vaccinated. Pt requiring admission post-operatively. Plan for recheck with COVID Dela Cruz AM DOS due to possibility that patient may have a roommate. OR aware. Dela Cruz order placed. - Cardiology office visit (04/15/22): "Patient with recently diagnosed atrial flutter status post BOB guided cardioversion. He remains in sinus rhythm. He will need to continue anticoagulation uninterrupted for 4 weeks post cardioversion [done 03/31/22]. He is hoping to undergo hip replacement at the end of this month. Recent transthoracic and transesophageal echocardiograms with decline in LV function. He continues to have some degree of exertional dyspnea. On exam today appears well perfused without signs of systemic vascular congestion. No recent chest pain. Recommend Lexiscan SPECT to rule out ischemia prior to undergoing planned hip replacement." - Cardiology addendum (04/29/22): "Patient's Lexiscan SPECT shows no scintigraphic evidence of stress-induced myocardial ischemia. No exercise- induced chest pain or EKG changes. Low normal left ventricular systolic function without wall motion abnormality. From cardiac standpoint he is an acceptable risk to proceed with surgery without additional cardiac testing/intervention." - Seen by PCP (04/30/22): chronic issues stable. F/U 4 months recommended. - Check BSG AM DOS Chart Review Chart Review: Acceptable Risk for Surgery (pending evaluation AM DOS) and Patient NOT seen in Pre Admission Testing History Surgery Operation Date: 05/01/22 07:00 Proposed Procedures p Left Total Hip Arthroplasty - Fidel Tejeda MD Height/Weight Height: 5 ft 8 in Weight: 81.3 kg Allergies Allergy/AdvReac Type Severity Reaction Status Date / Time morphine Allergy Unknown Itching Verified 04/30/22 10:26 amlodipine AdvReac Unknown Possible Verified 04/30/22 10:26 dizziness per pt (unsure) hydrochlorothiazide AdvReac Unknown Fatigue Verified 04/30/22 10:26 tramadol AdvReac Unknown Delirium Verified 04/30/22 10:26 Medications Home Medications Medication Instructions Recorded Confirmed Last Taken aspirin 81 mg tablet,delayed 81 mg PO QPM #0 tabs 03/05/12 04/15/22 03/11/20 20:00 release sodium chloride 0.65 % nasal spray 1 spray intranasal HS ##0 03/03/18 04/15/22 03/11/20 20:00 aerosol (Saline Nasal) cetirizine 10 mg tablet (Zyrtec) 10 mg PO QPM #0 tabs 04/22/18 04/15/22 03/11/20 20:00 multivitamin 1 tab PO HS 05/05/19 04/15/22 03/11/20 20:00 carboxymethylcellulose sodium 0.5 1 drops ophthalmic (eye) PRN 06/22/19 04/15/22 03/11/20 20:00 % eye drops (Refresh Tears) diclofenac sodium 1 % topical gel 2 g topical UD PRN Pain #100 grams 07/23/20 04/15/22 Unknown (Voltaren) nitroglycerin 0.4 mg sublingual 0.4 mg sublingual UD PRN Chest 07/24/20 04/15/22 Unknown tablet Pain #10 tabs calcipotriene 0.005 % topical cream 1 applic topical DAILY PRN Itching 12/14/20 04/15/22 Unknown amoxicillin 500 mg tablet 2,000 mg PO ONCE #4 tabs 05/15/21 04/15/22 Unknown carvedilol 25 mg tablet 12.5 mg PO BID 0 days #90 tabs 08/14/21 04/15/22 Unknown tamsulosin 0.4 mg capsule 0.4 mg PO QAM #90 caps 08/14/21 04/15/22 Unknown sitagliptin 50 mg tablet (Januvia) 50 mg PO QAM #90 tabs 11/12/21 04/15/22 Unknown lisinopril 10 mg tablet 5 mg PO QAM 12/25/21 04/15/22 Unknown tramadol 50 mg tablet 50 mg PO BID PRN pain #60 tabs 12/25/21 04/15/22 Unknown atorvastatin 20 mg tablet 20 mg PO HS 03/17/22 04/15/22 Unknown famotidine 20 mg tablet (Pepcid AC) 20 mg PO HS PRN Acid Reflux 03/17/22 04/15/22 Unknown finasteride 5 mg tablet 5 mg PO QAM 03/17/22 04/15/22 Unknown furosemide 20 mg tablet (Lasix) 40 mg PO BID PRN weight gain 03/17/22 04/15/22 Unknown apixaban 5 mg tablet (Eliquis) 5 mg PO BID #60 tabs 03/20/22 04/15/22 Unknown Past Medical History Medical History (Updated 04/30/22 @ 10:13 by Sena Emerson) Anxiety Cancer Skin cancer (back) s/p excision CHF (congestive heart failure) Chronic back pain COPD (chronic obstructive pulmonary disease) Coronary artery disease REINIER x1 to pLAD (2018). Patent on 2020 cath, jailed D1 with nonobstructive disease Diabetes mellitus, type 2 NIDDM Hgb A1C 6.6% on 01/07/22 Elevated serum creatinine Creat ranges from 1.5-2 since 2019 Enlarged prostate History of atrial fibrillation History of kidney stones Has current kidney stone noted on u/s but not symptomatic /obstructive History of mitral valve disease S/p mitral valve repair (2011) (secondary to severe MR) Hyperlipidemia Hypertension Pulmonary hypertension Mild on 2017 RHC Secondary to lung disease Past Family History Family History Mother Family history of diabetes mellitus Brother Coronary arteriosclerosis Brother No problems noted. Aunt Myocardial infarction Family history of diabetes mellitus Uncle Myocardial infarction Family history of diabetes mellitus Denies family history of Ovarian cancer Prostate cancer Breast cancer Colorectal cancer Past Surgical History Surgical History H/O eye surgery L EYE / CYST BEHIND RETINA REMOVED AND TEAR DUCT REMOVED H/O mitral valve repair 2011 AT [facility] History of anesthesia reaction DISORIENTATION S/P BACK SURGERY 2019 [facility] History of arthroscopy LEFT KNEE History of bronchoscopy History of cardiac cath 03/2018- stent x1 2019 History of cardioversion 2006 History of carpal tunnel release BILAT History of cataract surgery R/L History of colonoscopy History of discectomy History of esophagogastroduodenoscopy (EGD) History of herniorrhaphy History of nasal septoplasty History of right hip replacement History of toe surgery R GREAT History of total hip arthroplasty RIGHT Hx of spinal fusion S/P trigger finger release HX OF MULTIPLE Social History Smoking Status: Former smoker tobacco type: cigarettes Do You Dip or Chew Tobacco: No Smoking End Date: QUIT 1975 Hx Alcohol Use: Yes Alcohol type: beer and wine alcohol intake frequency: 0-2 drinks per day (1-2 drinks/day) Hx Substance Use: No substance use type: does not use Lab Results Anesthesia Preop Results Results Anesthesia Widget: WBC 7.84 K/ul (4.8-10.8) 03/20/22 Hgb 13.4 g/dl (14.0-18.0) L 03/20/22 Hct 39.8 % (40.1-51.0) L 03/20/22 Plt 162 K/uL (130-400) 03/20/22 Na 140 mmol/L (136-145) 03/20/22 K 4.8 mmol/L (3.5-5.1) 03/20/22 Cl 104 mmol/L (98-107) 03/20/22 CO2 29 mmol/L (21-32) 03/20/22 BUN 42 mg/dl (6-23) H 03/20/22 Creat 1.81 mg/dl (0.6-1.4) H 03/20/22 Glucose Level 126 mg/dl (70-99(Fasting)) H 03/20/22 PT 12.0 Seconds (9.0-12.0) 03/20/22 PTT 27.5 Seconds (21.0-31.0) 03/20/22 INR 1.1 (0.9-1.1) 03/20/22 Blood Type O Positive 03/20/22 Antibody Screen NEGATIVE 03/20/22 Testing Laboratory Results 01/07/22 HGBA1C 6.6% Electrocardiogram Date: 04/15/22 SR with first degree AVB at 63bpm with PACs. LAD. Chest X-Ray Date: 03/20/22 FINDINGS: PA and lateral chest radiographs are compared to study dated 02/21/2020 and correlated with chest CT dated 03/03/2018. There is evidence of previous cardiac valve surgery. Epicardial pacing leads are noted. The heart is enlarged noting atherosclerotic calcification of the thoracic aorta. The pulmonary vasculature is noncongested. Emphysema and chronic interstitial thickening is similar to previous. There is bibasilar scarring/atelectasis. No airspace consolidation or pleural effusion is identified. There is no pneumothorax. The skeletal structures are osteopenic. The bony thorax appears intact spondylotic change is noted in the thoracic spine. Fusion hardware is partially seen in the lumbar spine. IMPRESSION: Cardiomegaly and emphysema with no active disease in the chest. Echocardiogram Date: 03/31/22 BOB (+ cardioversion) LVEF 35-40%. Mild to moderate global LV dysfunction. Post mitral annuloplasty ring. Trace MR. Moderate TR. No RAFA thrombus. Mild cLVH. Stress Test Date: 04/25/22 Type: nuclear No scintigraphic evidence of a prior myocardial infarction or stress-induced myocardial ischemia. No exercise-induced chest pain. No EKG changes. Low normal left ventricular systolic function without wall motion abnormality. Left ventricular ejection fraction is 48 %. Cardiac Catheterization Date: 08/10/20 No significant major epicardial vessel coronary artery disease -Widely patent proximal LAD stent 60 to 70% ostial stenosis of jailed first diagonal Normal intracardiac filling pressure Recommendations: Stress test represents a false positive. Consider trial of additional antianginal therapy for diagonal disease. Continued ASCVD risk factor modification
[~2022-05-14 06:16] MED LIST changes: -CEFAZOLIN 2000MG 2,000 MG/15 ML SYR IV SCH; +FAMOTIDINE 20 MG TAB PO SCH; -GABAPENTIN 300 MG CAP PO SCH; +LR 500ML BOLUS, THEN 15ML/HR IV SCH; +LR 60ML/HR IV SCH; +METOCLOPRAMIDE HCL 10 MG TABLET PO SCH; +TRANEXAMIC ACID 1,000 MG **IV Pre-op IV SCH; +ceFAZolin 2000MG 2,000 MG/15 ML SYR IV SCH
[2022-05-14] MEDS ORDERED: BUPIVACAINE 0.5 % 5 MG/1 ML PF 10ML VIAL ONE (06:26)
--- NOTE | 2022-05-14 07:34 | History & Physical Bridge Note ---
Date of Service May 14, 2022 History & Physical Bridge Note I have examined the patient, reviewed the History & Physical and in the interval since the performance of the History & Physical I have noted the following changes of clinical significance: no changes noted
[2022-05-14] MEDS ORDERED: ONDANSETRON INJ 2 MG/ML 2 ML VIAL IV PRN ×2 (08:24→11:48)
[2022-05-14] MEDS ORDERED: ATROPINE SULFATE 0.1 MG/ML 10ML SYR IV PRN (08:24)
[2022-05-14] MEDS ORDERED: ePHEDrine sulfate 50 MG/ML AMP IV PRN (08:24)
[2022-05-14] MEDS ORDERED: PROPOFOL IV EMULSION 10 MG/ML 20 ML VIAL IV ONE (08:27)
[2022-05-14] MEDS ORDERED: DEXAMETHASONE SOD INJ 4 MG/ML VIAL ONE (08:27)
[2022-05-14] MEDS ORDERED: ONDANSETRON INJ 2 MG/ML 2 ML VIAL ONE (08:27)
[2022-05-14] MEDS ORDERED: fentaNYL citrate 100 MCG/2 ML VIAL ONE ×2 (08:28→09:36)
[2022-05-14] MEDS ORDERED: EPINEPHrine INJ 1 MG/ML AMP ONE (08:33)
[2022-05-14] MEDS ORDERED: BUPIVACAINE 0.5 % 5 MG/1 ML MPF 30ML VIAL ONE ×2 (08:33→08:34)
[2022-05-14] MEDS ORDERED: ROCURONIUM BROMIDE 10 MG/ML 5 ML VIAL IV ONE (09:10)
[2022-05-14] MEDS ORDERED: ePHEDrine sulfate 50 MG/ML SYR ONE (09:11)
[2022-05-14] MEDS ORDERED: MoRPHine SULFATE PF 1 MG/ML 10 ML AMP/VIAL ONE (10:01)
--- NOTE | 2022-05-14 10:31 | Operative Report ---
PG Post Operative Report Pre & Post Diagnosis Operation Date: 05/01/22 11:00 <No data on this case meets the specified criteria> Operation Date: 05/05/22 08:50 <No data on this case meets the specified criteria> Operation Date: 05/14/22 08:30 Pre-Op Diagnosis: Left Hip Degenerative Joint Disease Post-Op Diagnosis: Left Hip Degenerative Joint Disease I identified the patient and participated in the time-out.: Yes Procedure Operation Date: 05/01/22 11:00 <No data on this case meets the specified criteria> Operation Date: 05/05/22 08:50 <No data on this case meets the specified criteria> Operation Date: 05/14/22 08:30 Actual Procedures p Left Total Hip Arthroplasty(Left) - Fidel Tejeda MD Surgeon Fidel Tejeda MD Ecclesiastical Worker Keenan Handley PA-C Estimated Blood Loss 200 Findings Consistent with Post-Op Diagnosis Operative findings were advanced left hip DJD. He had grade 4 [id number] disease of the femoral head and acetabulum. Fairly sclerotic acetabulum. Not much of a medial osteophyte. Moderate-sized joint effusion. Fairly stiff hip preoperatively. Fluids 900 cc Specimens Left femoral head sent for pathology Anesthesia Type General Complications none Disposition Accompanied Patient To Recovery: No Indications Patient is an 82-year-old fairly active gentleman with multiple medical comorbidities who said he several year history of gradual progressive with increasing left hip pain and discomfort. He has been through extensive cons ervative treatment which became less successful over time. The pain and discomfort was really limiting in his lifestyle. He elected proceed with left total hip arthroplasty. The patient was medically optimized preoperatively. Description of Procedure Operative implants consist of: 1. Biomet G7 size 58 mm acetabular shell. 2. 6.5 cancellous acetabular screws 1 of 35 mm length and 1 of 30 mm length. 3. Raiford hole last puller. 4. Highly cross-linked polyethylene liner with a 58 mm outer diameter 36 mm inner diameter. 5. DePuy Karaya size 13 KLA femoral stem. 6. +5/36 mm ceramic articular ball. The patient was taken the operating, identified, placed on the operating table supine position protectors were properly padded. IV antibiotics tried by anesthesia team. A general anesthetic was implemented. The patient was then placed in the right lateral decubitus position. An axillary roll was placed. Stulberg hip positioner was used for positioning. The left hip and leg were then prepped and draped in usual sterile fashion. A posterolateral approach to the left hip was then performed to a curvilinear incision centered over the greater trochanter. Sharp dissection was got through subcutaneous is down below the IT band gluteal fascia the IT band gluteal fascia then incised longitudinally in line with skin incision. The underlying greater bursa was excised. The piriformis and external rotators along with the posterior hip joint capsule released from the posterior aspect hip joint as a single layer. Great care was taken throughout the procedure protect the sciatic nerve at all times. Hip was internally rotated and dislocated. A femoral neck osteotomy cut was made with a Final Cut about 15 mm above the lesser trochanter. Femoral head was removed and sent for pathology. The femur was retracted anteriorly. Attention drawn the acetabulum. The acetabular labrum was excised. The pelvic pulmonary fat was excised. Sequential reaming the acetabular was then performed begin with size 45 and progressing up to 57. I did reamed a little bit with a 58 reamer and then placed a 58 mm Biomet G7 acetabular shell in about 40 degrees lateral opening and 20 degrees of anteversion. It was fixed with two 6.5 cancellous acetabular screws. A trial liner was placed. Attention drawn the femur. The proximal femur was entered with a Cook cutter followed by canal finder. I then broached beginning with size 8 and progressing up to a 12. We trialed the hip and the hip was fully stable with a +5 articular ball. Leg length seemed appropriate. The femoral stem still seemed a little bit loose with rotationally so I did do broached up to a [address] a 13 stem. These implants were removed. An apex hole last puller was placed. Highly cross-linked polyethylene liner was placed. A DePuy a size 13 KLA femoral stem was impacted in position. A +5/36 mm ceramic articular ball was placed. Hip was located onc e again found to be stable. Attention drawn toward closing. Wound was irrigated closed muscle pulsatile lavage solution. I did inject locally with 60 cc of half percent Marcaine with epinephrine. Posterior capsule and external rotators then repaired through drill holes in the posterior trochanter as a single layer with #2 Tycron suture. The IT band gluteal fascia then closed in 1 PDS suture in running fashion for subcutaneous tissue then closed with 2 Dexon suture in a buried interrupted fashion. Skin was then closed with skin addy. The leg was then cleaned and dried and a sterile dr essing was Xeroform, 4 fours, sterile ABD pad, foam tape was applied. Patient then brought out of general anesthesia and transferred to the recovery room in stable condition. Patient tolerated the procedure well and there were no complications. Keenan Handley, my physician hygiene assistant, was present for the entire procedure. His assistance was essential and required for appropriate patient positioning, prepping and draping, surgical exposure, performing the technical details of the operation, placement the implants, closure of the wound, and placement of the sterile bandage. I attest to the content of the Intraoperative Record and any orders documented therein. Any exceptions are noted below.
[2022-05-14] MEDS: fentaNYL citrate 100 MCG/2 ML VIAL IV PRN ×4 (10:38→10:53)
--- NOTE | 2022-05-14 11:08 | XRay Report ---
AP PELVIS, CROSSTABLE LATERAL LEFT HIP History: Left total hip arthroplasty. Degenerative arthritis. Postop. FINDINGS: The patient is status post a left total hip arthroplasty. The hardware is intact. No fractu re or dislocation. Skin addy are in place. Evidence for prior right total hip arthroplasty. IMPRESSION: Left total hip arthroplasty. No evidence for hardware complication. ACT 112: Negative or not required by law. Electronically signed by: Travis Hart M.D. 05/14/2022 11:06 AM
--- NOTE | 2022-05-14 11:10 | Anesthesiology Progress Note ---
Date of Service May 14, 2022 Anesthesia Post Procedure Vital Signs Vital Signs: Temp Pulse Resp BP Pulse Ox O2 Del Method O2 Flow Rate 05/14/22 11:05 97.5 F L 56 L 18 112/59 L 99 Nasal Cannula 2 05/14/22 10:55 56 L 16 117/55 L 99 Nasal Cannula 2 05/14/22 10:45 58 L 17 108/70 99 Oxymask 5 05/14/22 10:35 58 L 17 118/70 99 Oxymask 5 05/14/22 10:26 96.8 F L 63 18 115/80 99 Oxymask 5 05/14/22 07:08 96.8 F L 73 18 124/62 97 Room Air Transfer of Care Handoff Completed per policy Notes Mental Status: alert / awake / arousable and participated in evaluation Patient Amnestic to Procedure: Yes Nausea / Vomiting: adequately controlled Pain: adequately controlled Airway Patency, RR, SpO2: stable & adequate BP & HR: stable & adequate Hydration State: stable & adequate Anesthetic Complications: no major complications apparent and Pt Satisfied with anesthetic care
[2022-05-14] MEDS ORDERED: FUROSEMIDE 40 MG TAB PO PRN (11:48)
[2022-05-14] MEDS ORDERED: MAGNESIUM HYDROXIDE SUSP 30 ML UDC PO PRN (11:48)
[2022-05-14] MEDS ORDERED: FAMOTIDINE 20 MG TAB PO PRN (11:48)
[2022-05-14] MEDS ORDERED: GLUCAGON FOR INJ 1 MG VIAL SQ PRN (11:48)
[2022-05-14] MEDS ORDERED: NITROGLYCERIN SL 0.4 MG/TAB TAB SL PRN (11:48)
[2022-05-14] MEDS ORDERED: NO NSAIDS SCH (11:48)
[2022-05-14] MEDS ORDERED: bisacodyL 10 MG SUPP PR PRN (11:48)
[2022-05-14] MEDS ORDERED: SODIUM CHLORIDE 0.9% 1000ML 1,000 ML IV SCH (11:48)
[2022-05-14] MEDS ORDERED: METOCLOPRAMIDE HCL INJ 5 MG/ML 2 ML VIAL IV PRN (11:48)
[2022-05-14] MEDS ORDERED: DEXTROSE 50% 50 ML SYRINGE IV PRN (11:48)
[2022-05-14] MEDS ORDERED: GLUCOSE 40% GEL 15 GM TUBE PO PRN (11:48)
[2022-05-14] MEDS ORDERED: GLUCOSE 10 TAB/TUBE PO PRN (11:48)
[2022-05-14] MEDS ORDERED: NALOXONE HCL 0.4 MG/1 ML VIAL/CARP IV PRN (11:48)
[2022-05-14] MEDS ORDERED: ALUMINUM/MAGNESIUM SUSP 30 ML UDC PO PRN (11:48)
[2022-05-14] MEDS ORDERED: CARBOHYDRATES FOR HYPOGLYCEMIA PO PRN (11:48)
[2022-05-14] MEDS ORDERED: PHARMACY GLYCEMIC MGMT CONSULT PRN (11:48)
[2022-05-14] MEDS ORDERED: HYDROmorphone INJ 1 MG/ML SYRINGE ONE (12:11)
[2022-05-14] MEDS ORDERED: HYDROmorphone INJ 0.5 MG/0.5 ML SYR IV STA (12:29)
--- NOTE | 2022-05-14 13:38 | Pharmacy Report ---
Pharmacy Glycemic Short Note 2 - Date of Service May 14, 2022 - Glycemic Short BSG Results (Last 24 hours): 05/14/22 05/14/22 05/14/22 06:41 10:29 13:18 POC Glucose 138 H 191 H 200 H OUTPATIENT ANTIDIABETIC REGIMEN: * Januvia 50 mg daily * A1c 6.6% ASSESSMENT: * 82 year old now s/p L total hip arthroplasty, POD 0. Pharmacy consulted for glycemic management. Patient is a type 2 diabetic managed only on Januvia at home. Post-op BSG 200 mg/dL - possibly elevated due to stress from surgery * Will start novolog stress of 2 dosing for now. No steroids documented, will hold basal insulin PLAN FOR INPATIENT GLYCEMIC CONTROL: * Hold outpatient oral diabetes medications * Basal insulin * Lantus - hold * Bolus insulin * NovoLog per scale ACHS or Q6hrs while NPO * Goal Range: Low 120 mg/dL - High 160 mg/dL * Correction Factor: 30 mg/dL/unit * Nutritional / Prandial insulin per carb ratio of 1 unit per 15 grams CHO consumed
[2022-05-14] MEDS: INSULIN ASPART PER UNIT SC SCH ×3 (13:46→21:38)
[2022-05-14] MEDS: ARTIFICIAL TEARS OP SCH (13:46)
[2022-05-14] MEDS: ACETAMINOPHEN 500 MG TAB PO SCH ×2 (13:51→21:39)
[2022-05-14] MEDS ORDERED: TRANEXAMIC ACID / 0.7% NACL 1,000 MG/100 ML BAG IV SCH (16:30)
[2022-05-14] MEDS: HYDROmorphone INJ 0.5 MG/0.5 ML SYR IV PRN ×2 (16:35→21:35)
[2022-05-14] MEDS: ASCORBIC ACID 500 MG TAB PO SCH (17:02)
[2022-05-14] MEDS: ceFAZolin 2000MG 2,000 MG/15 ML SYR IV SCH (17:02)
[2022-05-14] MEDS: traMADol HCL 50 MG TABLET PO PRN (19:24)
--- NOTE | 2022-05-14 20:00 | Hospitalist Consultation ---
Date of Consultation May 14, 2022 Assessment & Plan (1) Arthritis of left hip: s/p left hip arthroplasty doing well (2) Hypertension: coreg, lisinopril, uses lasix prn (3) Atrial fibrillation: on coreg and apixiban, will discuss return to usual dose with ortho (4) Diabetes mellitus: diet and ssi, sitagliptin home medication on hold (5) COPD (chronic obstructive pulmonary disease): stable (6) CKD (chronic kidney disease), stage III: hold emeterio i post operatively , will then watch renal function (7) Pulmonary hypertension: History of Present Illness Attending Physician: Fidel Tejeda MD History of Present Illness left total hip arthroplasty in a patient with afib, [employer]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[employer], HTN pulmonary htn and diabetes Allergies Allergy/AdvReac Type Severity Reaction Status Date / Time morphine Allergy Unknown Itching Verified 05/14/22 06:46 amlodipine AdvReac Unknown Possible Verified 05/14/22 06:46 dizziness per pt (unsure) hydrochlorothiazide AdvReac Unknown Fatigue Verified 05/14/22 06:46 tramadol AdvReac Unknown Delirium Verified 05/14/22 06:46 Home Medications Medication Instructions Recorded Confirmed Type aspirin 81 mg tablet,delayed 81 mg PO QPM #0 tabs 03/05/12 05/14/22 History release sodium chloride 0.65 % nasal spray 1 spray intranasal HS ##0 03/03/18 05/14/22 History aerosol (Saline Nasal) cetirizine 10 mg tablet (Zyrtec) 10 mg PO QPM #0 tabs 04/22/18 05/14/22 History multivitamin 1 tab PO HS 05/05/19 05/14/22 History carboxymethylcellulose sodium 0.5 1 drops ophthalmic (eye) PRN 06/22/19 05/14/22 History % eye drops (Refresh Tears) diclofenac sodium 1 % topical gel 2 g topical UD PRN Pain #100 grams 07/23/20 05/14/22 Rx (Voltaren) nitroglycerin 0.4 mg sublingual 0.4 mg sublingual UD PRN Chest 07/24/20 05/14/22 Rx tablet Pain #10 tabs calcipotriene 0.005 % topical cream 1 applic topical DAILY PRN Itching 12/14/20 05/14/22 History amoxicillin 500 mg tablet 2,000 mg PO ONCE #4 tabs 05/15/21 05/14/22 Rx carvedilol 25 mg tablet 12.5 mg PO BID 0 days #90 tabs 08/14/21 05/14/22 Rx sitagliptin 50 mg tablet (Januvia) 50 mg PO QAM #90 tabs 11/12/21 05/14/22 Rx lisinopril 10 mg tablet 5 mg PO QAM 12/25/21 05/14/22 History tramadol 50 mg tablet 50 mg PO BID PRN pain #60 tabs 12/25/21 05/14/22 Rx finasteride 5 mg tablet (Proscar) 5 mg PO QAM 03/17/22 05/14/22 History furosemide 20 mg tablet (Lasix) 40 mg PO BID PRN weight gain 03/17/22 05/14/22 History apixaban 5 mg tablet (Eliquis) 5 mg PO BID #60 tabs 03/20/22 05/14/22 Rx acetaminophen 500 mg capsule 1,000 mg PO TID Pain 30 days #180 05/03/22 05/14/22 Rx caps ondansetron HCl 4 mg tablet 4 mg PO Q6 PRN nausea #20 tabs 05/03/22 05/14/22 Rx sennosides 8.6 mg-docusate sodium 1 tab-cap PO BID #30 tabs 05/03/22 05/14/22 Rx 50 mg tablet (Senokot-S) tramadol 50 mg tablet 50 - 100 mg PO Q6H PRN pain #40 05/03/22 05/14/22 Rx tabs famotidine 20 mg tablet (Pepcid AC) 20 mg PO HS PRN Acid Reflux #180 05/13/22 05/14/22 Rx tabs atorvastatin 20 mg tablet (Lipitor) 20 mg PO HS 05/14/22 05/14/22 History tamsulosin 0.4 mg capsule (Flomax) 0.4 mg PO QAM 05/14/22 05/14/22 History Patient History Medical History Anxiety Cancer Skin cancer (back) s/p excision CHF (congestive heart failure) Chronic back pain COPD (chronic obstructive pulmonary disease) Coronary artery disease REINIER x1 to pLAD (2018). Patent on 2019 cath, jailed D1 with nonobstructive disease Diabetes mellitus, type 2 NIDDM Hgb A1C 6.6% on 01/07/22 Elevated serum creatinine Creat ranges from 1.5-2 since 2019 Enlarged prostate History of atrial fibrillation History of kidney stones Has current kidney stone noted on u/s but not symptomatic /obstructive History of mitral valve disease S/p mitral valve repair (2011) (secondary to severe MR) Hyperlipidemia Hypertension Pulmonary hypertension Mild on 2017 [facility] Secondary to lung disease Surgical History H/O eye surgery L EYE / CYST BEHIND RETINA REMOVED AND TEAR DUCT REMOVED H/O mitral valve repair 2011 AT [facility] History of anesthesia reaction DISORIENTATION S/P BACK SURGERY 2019 [facility] History of arthroscopy LEFT KNEE History of bronchoscopy History of cardiac cath 03/2018- stent x1 2019 History of cardioversion 2006 History of carpal tunnel release BILAT History of cataract surgery R/L History of colonoscopy History of discectomy History of esophagogastroduodenoscopy (EGD) History of herniorrhaphy History of nasal septoplasty History of right hip replacement History of toe surgery R GREAT History of total hip arthroplasty RIGHT Hx of spinal fusion S/P trigger finger release HX OF MULTIPLE Family History Mother Family history of diabetes mellitus Brother Coronary arteriosclerosis Brother No problems noted. 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 Beliefs That Will Affect Care: None marital status: Current Living Situation: Spouse current occupational status: retired current occupation: Retired [employer] maintenance at [employer] How many Children do You have: 2 Other Information That Helps Us Care for You: No Feels Safe at Home: Yes Safety Concerns: Feels Safe At This Time Childhood Exposure to Second-Hand Smoke: No Dental Care, Regularly: No Physical Activity Frequency: Daily Seatbelt Use: always Sunscreen Use: No Assistive Devices: Cane, Crutches and Walker Assistive Devices Comment: raised toilet Review of Systems Review of Systems: Mild distress and fatigue no headache, no visual changes no speech or swallowing issues no chest pain, pressure or palpitations no shortness of breath, cough or wheezes no abdominal pain, nausea or vomiting, diarrhea or constipation no dysuria, hematuria or frequency Some mild typical postoperative left hip pain in good control no back pain, CVA tenderness or radicular pain no bruising, bleeding or rashes no focal signs of weakness or numbness or altered sensation no complaints of anxiety or depression.. Physical Exam Physical Exam: The patient appeared well nourished and normally developed. Vital signs as documented. Head exam is normocephalic atraumatic Neck is without JVD, thyromegaly, or carotid bruits. Lungs are clear to auscultation, no focal loss of breath sounds Cardiac exam, Rhythm is regular.. No murmurs, rubs or gallops. Abdominal exam reveals normal bowel sounds, soft non tender, no masses Extremities are nonedematous and both pedal pulses are present Left hip has ice and a bandage in place Neurologic exam is alert and oriented, no focal loss of strength or sensation Skin is without bruises or rashes Psychologically is without concerns for anxiety or depression.. Results & Data Results & Data ([facility]) Vital Signs (Past 12 Hours) Vital Signs Temp Pulse Resp BP Pulse Ox O2 Del Method O2 Flow Rate 05/14/22 15:23 98.6 F 61 18 147/67 H 98 Nasal Cannula 05/14/22 14:20 60 16 136/72 97 05/14/22 13:45 97.7 F 59 L 18 138/86 97 Nasal Cannula 05/14/22 13:27 Room Air, Nasal Cannula 2 05/14/22 13:18 97.3 F L 61 18 124/67 92 Nasal Cannula 2 05/14/22 12:15 58 L 18 109/69 99 Nasal Cannula 2 05/14/22 11:45 59 L 18 92/69 L 99 Nasal Cannula 2 05/14/22 11:30 57 L 17 112/69 99 Nasal Cannula 2 05/14/22 11:15 57 L 17 123/65 97 Nasal Cannula 2 05/14/22 11:05 97.5 F L 56 L 18 112/59 L 99 Nasal Cannula 2 05/14/22 10:55 56 L 16 117/55 L 99 Nasal Cannula 2 05/14/22 10:45 58 L 17 108/70 99 Oxymask 5 05/14/22 10:35 58 L 17 118/70 99 Oxymask 5 05/14/22 10:26 96.8 F L 63 18 115/80 99 Oxymask 5 PG Care Time/CCT Total # of Minutes Spent Total Time Spent with Patient: Total time spent is greater than 50% in coordination of care (as documented) at patient's floor/unit and/or counseling patient: Coding Level of Care Code 79872 Inpt Consult Level 3 Diagnoses Arthritis of left hip M16.12 Hypertension I10 Atrial fibrillation I48.91 Diabetes mellitus E11.9 COPD (chronic obstructive pulmonary disease) J44.9 CKD (chronic kidney disease), stage III N18.3 Pulmonary hypertension I27.20
[2022-05-14] MEDS ORDERED: COUGH DROP (SUGAR FREE) LOZ 24 LOZ/1 BOX BUCCAL PRN (20:27)
[2022-05-14] MEDS: ATORVASTATIN 20 MG TAB PO SCH (20:31)
[2022-05-14] MEDS: SENNA 8.6 MG TAB PO SCH (20:31)
[2022-05-14] MEDS: ASPIRIN 81 MG ECTAB PO SCH (20:31)
[2022-05-14] MEDS: carvediloL 12.5 MG TAB PO SCH (20:31)
[2022-05-14] MEDS: CETIRIZINE HCL 10 MG TABLET PO SCH (20:32)
[2022-05-14] MEDS: DOCUSATE SODIUM/SENNA 50/8.6MG TAB PO SCH (20:37)
[2022-05-14] MEDS: DOCUSATE SODIUM 100 MG CAP PO SCH (20:37)
[2022-05-14] MEDS: SODIUM CHLORIDE 0.65% NA SOLN 45 ML (OCEAN) NAE SCH (20:41)
[2022-05-14] MEDS ORDERED: NON-FORMULARY MEDICATION (Multivitamin Tablet) PO SCH (21:00)
[2022-05-15] MEDS: ceFAZolin 2000MG 2,000 MG/15 ML SYR IV SCH (00:14)
[2022-05-15] MEDS: traMADol HCL 50 MG TABLET PO PRN ×3 (01:14→20:52)
[2022-05-15] MEDS: HYDROmorphone INJ 0.5 MG/0.5 ML SYR IV PRN ×2 (03:52→14:15)
[2022-05-15] MEDS: ACETAMINOPHEN 500 MG TAB PO SCH ×3 (06:00→22:45)
--- NOTE | 2022-05-15 07:46 | Progress Notes ---
DATE OF SERVICE: 05/15/2022. SUBJECTIVE: An 82-year-old gentleman postoperative day 1 from a left hip replacement. He is doing p retty well. Really not having much pain in bed. Some pain with some movement. Had a little bit mor e pain last night, but doing better this morning. No chest pain or shortness of breath. Not feeling dizzy or lightheaded. OBJECTIVE: VITAL SIGNS: Temperature is 37.4. Vital signs are stable. GENERAL: Physical examination shows a pleasant, elderly male. He is sitting up in bed. He is awake , alert and oriented. He looks comfortable. LUNGS: Clear to auscultation. HEART: Regular rate and rhythm. ABDOMEN: Soft, nontender, nondistended. EXTREMITIES: Grossly neurovascularly intact except as follows: Examination of the left hip and leg reveals the dressing to be clean, dry and intact. Leg lengths were equal. His hip is located. He i s neurologically intact. LABORATORY DATA: Pending. ASSESSMENT: An 82-year-old gentleman postoperative day 1 from a left hip replacement. He has got mu ltiple medical comorbidities including intermittent atrial fibrillation, but doing quite well. He lo oks to be at baseline. PLAN: 1. DVT prophylaxis includes thigh-high TEDs, SCDs, and back on anticoagulation. He is at prophylact ic dose today and then back to a therapeutic dose tomorrow. This is Eliquis 2.5 twice a day today an d then 5 tomorrow. 2. PT, OT, weightbear as tolerated. Left total hip protocol. 3. Pain control, doing okay with current pain regimen. 4. Disposition: Plan to discharge to home with some home health if he does okay in therapy. Job ID: [id number]
[2022-05-15 08:04] LABS: Basophils # (auto) 0.04 K/uL (0-0.2); Basophils % (auto) 0.4 %; Eosinophils # (auto) 0.02 K/uL (0-0.50); Eosinophils % (auto) 0.2 %; Hematocrit (blood only) 29.9 % (40.1-51.0); Hemoglobin 10.3 g/dl (14.0-18.0); Immature Granulocytes # (auto) 0.05 K/uL (0.00-0.02); Immature Granulocytes % (auto) 0.4 %; Lymphocytes # (auto) 1.04 K/uL (1.2-3.4); Lymphocytes % (auto) 9.3 %; Mean Corpuscular Hgb Conc 34.4 g/dL (32.0-36.0); Mean Corpuscular Volume 95.8 fL (80.0-100.0); Mean Platelet Volume 11.7 fL (9.4-12.4); Monocytes # (auto) 1.46 K/uL (0.24-0.82); Neutrophils # (auto) 8.58 K/uL (1.4-6.5); Neutrophils % (auto) 76.7 %; Platelet Count 143 K/uL (130-400); RDW Coefficient of Variation 13.2 % (11.5-14.5); RDW Standard Deviation 46.1 fL (36.4-46.3); Red Blood Count 3.12 M/uL (4.63-6.08); White Blood Count 11.19 K/ul (4.8-10.8)
[2022-05-15 08:38] LABS: BUN Creatinine Ratio 17.9 (10-20); Creatinine Clr Calc Pharmacy 37.7 ml/min; Est GFR (African American) 49.8 ml/min; Potassium 4.5 mmol/L (3.5-5.1)
[2022-05-15] MEDS ORDERED: lisinopril 5 MG TAB PO SCH (09:00)
[2022-05-15] MEDS ORDERED: SITagliptin PHOSPHATE 25 MG TAB PO SCH (09:00)
[2022-05-15] MEDS: carvediloL 12.5 MG TAB PO SCH ×2 (09:18→20:51)
[2022-05-15] MEDS: TAMSULOSIN HCL 0.4 MG CAP PO SCH (09:18)
[2022-05-15] MEDS: ASCORBIC ACID 500 MG TAB PO SCH ×2 (09:19→17:59)
[2022-05-15] MEDS: MULTIVITAMIN TAB PO SCH (09:19)
[2022-05-15] MEDS: FINASTERIDE 5 MG TAB PO SCH (09:19)
[2022-05-15] MEDS: INSULIN ASPART PER UNIT SC SCH ×4 (09:20→22:00)
[2022-05-15] MEDS: DOCUSATE SODIUM/SENNA 50/8.6MG TAB PO SCH ×2 (09:24→21:00)
[2022-05-15] MEDS: DOCUSATE SODIUM 100 MG CAP PO SCH ×2 (09:24→21:00)
[2022-05-15] MEDS: APIXABAN 2.5 MG TAB PO SCH ×2 (11:12→20:52)
[2022-05-15] MEDS: SITagliptin PHOSPHATE 25 MG TAB PO SCH (11:12)
[2022-05-15] MEDS: ARTIFICIAL TEARS OP SCH (13:45)
--- NOTE | 2022-05-15 15:06 | Pharmacy Report ---
Pharmacy Glycemic Short Note 2 - Date of Service May 15, 2022 - Glycemic Short BSG Results (Last 24 hours): 05/14/22 05/14/22 05/15/22 16:58 21:09 07:40 Glucose 154 H POC Glucose 118 H 148 H 05/15/22 05/15/22 08:04 11:58 Glucose POC Glucose 177 H 182 H OUTPATIENT ANTIDIABETIC REGIMEN: * Januvia 50 mg daily * A1c 6.6% ASSESSMENT: 05/15: * Patient received total 3 units of bolus insulin yesterday. * BSGs yesterday were [phone] mg/dl. * Fasting BSG was elevated at 177 mg/dl today. * Since patient's serum creatinine is stable and he is eating his diet, resumed oral home med Januvia today morning. * No changes made to Novolog parameters since Januvia was started and will wait to see if BSGs improve with this onboard. * Basal insulin also not ordered. Background 05/14/22: * 82 year old now s/p L total hip arthroplasty, POD 0. Pharmacy consulted for glycemic management. Patient is a type 2 diabetic managed only on Januvia at home. Post-op BSG 200 mg/dL - possibly elevated due to stress from surgery * Will start novolog stress of 2 dosing for now. No steroids documented, will hold basal insulin PLAN FOR INPATIENT GLYCEMIC CONTROL: * Resumed Januvia 50 mg PO QAM (home med) * Basal insulin * none * Bolus insulin * NovoLog per scale ACHS or Q6hrs while NPO * Goal Range: Low 120 mg/dL - High 160 mg/dL * Correction Factor: 30 mg/dL/unit * Nutritional / Prandial insulin per carb ratio of 1 unit per 15 grams CHO consumed
--- NOTE | 2022-05-15 15:37 | Hospitalist Progress Note ---
Date of Service May 15, 2022 Assessment & Plan (1) Arthritis of left hip: Plan: s/p left hip arthroplasty is participating in PT (2) Hypertension: Plan: coreg, lisinopril on hold resume on discharge (3) Atrial fibrillation: Plan: on coreg and apixiban, will return to usual dose for post op VtE prevetion (4) Diabetes mellitus: Plan: diet and ssi, sitagliptin home medication on hold (5) COPD (chronic obstructive pulmonary disease): Plan: stable (6) CKD (chronic kidney disease), stage III: Plan: stable (7) Pulmonary hypertension: Admission and Anticipated Discharge Date Admission Date: May 14, 2022 Subjective pt has some struggles with PT, otherwise doing well did hold lisinpril post op day one Review of Systems Review of Systems: Mild distress and fatigue no headache, no visual changes no speech or swallowing issues no chest pain, pressure or palpitations no shortness of breath, cough or wheezes no abdominal pain, nausea or vomiting, diarrhea or constipation no dysuria, hematuria or frequency Does have some left hip pain with movement no back pain, CVA tenderness or radicular pain no bruising, bleeding or rashes no focal signs of weakness or numbness or altered sensation no complaints of anxiety or depression.. Physical Exam Physical Exam: The patient appeared well nourished and normally developed. Vital signs as documented. Head exam is normocephalic atraumatic Neck is without JVD, thyromegaly, or carotid bruits. Lungs are clear to auscultation, no focal loss of breath sounds Cardiac exam, Rhythm is regular.. No murmurs, rubs or gallops. Abdominal exam reveals normal bowel sounds, soft non tender, no masses Neurologic exam is alert and oriented, no focal loss of strength or sensation some limitations by pain postoperatively but this is as expected Psychologically is without concerns for anxiety or depression.. Results & Data Results & Data ([facility]) Vital Signs (Past 12 Hours) Vital Signs Temp Pulse Resp BP Pulse Ox O2 Del Method O2 Flow Rate 05/15/22 15:19 98.2 F 72 16 100/56 L 92 Room Air 05/15/22 08:00 Nasal Cannula 2 05/15/22 07:42 98.4 F 97 H 16 111/63 96 Nasal Cannula 2 05/15/22 03:45 99.3 F 64 18 129/61 96 Nasal Cannula 2 PG Care Time/CCT Total # of Minutes Spent Total Time Spent with Patient: Total time spent is greater than 50% in coordination of care (as documented) at patient's floor/unit and/or counseling patient: Coding Level of Care Code 64716 Subseq Hosp Care Lvl 2 Diagnoses Arthritis of left hip M16.12 Hypertension I10 Atrial fibrillation I48.91 Diabetes mellitus E11.9 COPD (chronic obstructive pulmonary disease) J44.9 CKD (chronic kidney disease), stage III N18.3 Pulmonary hypertension I27.20
[2022-05-15] MEDS: ASPIRIN 81 MG ECTAB PO SCH (20:51)
[2022-05-15] MEDS: ATORVASTATIN 20 MG TAB PO SCH (20:52)
[2022-05-15] MEDS: CETIRIZINE HCL 10 MG TABLET PO SCH (20:52)
[2022-05-15] MEDS: SENNA 8.6 MG TAB PO SCH (20:52)
[2022-05-15] MEDS: SODIUM CHLORIDE 0.65% NA SOLN 45 ML (OCEAN) NAE SCH (21:00)
[2022-05-16] MEDS: ACETAMINOPHEN 500 MG TAB PO SCH (06:00)
[2022-05-16] MEDS: carvediloL 12.5 MG TAB PO SCH (07:42)
[2022-05-16] MEDS: SITagliptin PHOSPHATE 25 MG TAB PO SCH (07:42)
[2022-05-16] MEDS: MULTIVITAMIN TAB PO SCH (07:43)
[2022-05-16] MEDS: APIXABAN 2.5 MG TAB PO SCH (07:43)
[2022-05-16] MEDS: FINASTERIDE 5 MG TAB PO SCH (07:43)
[2022-05-16] MEDS: ASCORBIC ACID 500 MG TAB PO SCH (07:43)
[2022-05-16] MEDS: TAMSULOSIN HCL 0.4 MG CAP PO SCH (07:43)
[2022-05-16] MEDS: DOCUSATE SODIUM 100 MG CAP PO SCH (07:48)
[2022-05-16] MEDS: DOCUSATE SODIUM/SENNA 50/8.6MG TAB PO SCH (07:48)
--- NOTE | 2022-05-16 08:00 | Orthopedic Progress Note ---
Date of Service May 16, 2022 Assessment & Plan (1) S/P total left hip arthroplasty: continue addis's/scd's/eliquis for dvt prophylaxis Pain controlled. Plan to discharge home today with home health, after therapy. Dressing change today prior to discharge. Continue PT/OT: wbat, total hip precautions Follow up approx [address] Nikhil Nelson .82 year old patient POD #2 from left olinda. He didn't go home yesterday due to the pain level. He is doing much better this morning. Not much pain at this time. Denies chest pain. Review of Systems All systems reviewed & are unremarkable except as noted in HPI & below. Physical Exam .alert and oriented. NAD. VSS Left hip/leg: Dressing clean, dry, intact. Minimal swelling to the leg. Able to dorsiflex and plantarflex. NVI. Leg well aligned. Hip appears located. Results & Data Results & Data Laboratory Results . Diagnostic Findings . PG Care Time/CCT Total # of Minutes Spent Total Time Spent with Patient: Total time spent is greater than 50% in coordination of care (as documented) at patient's floor/unit and/or counseling patient: Coding Level of Care Code 44280 Post Operative Follow-Up Diagnoses S/P total left hip arthroplasty Z96.642
[2022-05-16] MEDS ORDERED: lisinopril 5 MG TAB PO SCH (09:00)
[2022-05-16] MEDS: INSULIN ASPART PER UNIT SC SCH (09:02)
[2022-05-16] MEDS: traMADol HCL 50 MG TABLET PO PRN (11:42)
--- NOTE | 2022-05-17 15:11 | Discharge Summary ---
Date of Service May 17, 2022 Discharge Data Consultations 05/14/22 10:32 Consult Hospitalist Routine Procedures Performed Operation Date: 05/01/22 11:00 <No data on this case meets the specified criteria> Operation Date: 05/05/22 08:50 <No data on this case meets the specified criteria> Operation Date: 05/14/22 08:30 Actual Procedures p Left Total Hip Arthroplasty(Left) - Fidel Tejeda MD Hospital Course (1) S/P total left hip arthroplasty: This is a 82 year old patient admitted on 05/14/22 and underwent total hip arthroplasty. He tolerated the procedure well and there were no complications. Transferred to the PACU post op and later to the orthopedic floor for further care. He was given ancef for antibiotic prophylaxis. He was also given TROY stockings, SCDs, and eliquis for DVT prophylaxis. Hemoglobin, hematocrit, and vital signs were monitored during his hospital stay and remained stable. Did not require any blood transfusions. There were no complications during his hospital stay. By post op day #2 the patient was tolerating a diabetic diet, pain was reasonably controlled with oral pain medicine, and he was participating in physical therapy. On post op day #2 the patient was discharged home and set up with home health care. He was given printed discharge instructions including prescriptions for extra strength tylenol, zofran, senokot, flomax, and tramadol. Continue physical therapy, weight bearing as tolerated. Continue hip precautions. Continue TROY stockings. Follow up approximately 2 weeks post op or sooner if there are problems or concerns. Coding Level of Care Code None Diagnoses S/P total left hip arthroplasty Z96.642
== END 2022-05-16 13:33 | disposition home health service (06) ==
LOC: PACUINP 06:16 → ASU 06:16 → 3W 13:19